=== PATIENT | male | born 1950 | race Caucasian/White ===

== ENCOUNTER → 2016-12-13 | Outpatient (REF) | payer MEDICARE, MEDICAID | LOC: M LAB REF 14:54 | PROVIDERS: ATTEND Physician Assistant Medical | DX: N39.0 Urinary tract infection, site not specified (principal) ==

== ENCOUNTER → 2017-01-25 | Outpatient (REF) | payer MEDICARE, MEDICAID ==
[2017-01-25 14:00] LABS: ALBUMIN 3.7 GM/DL (3.2-5.2); ALBUMIN/GLOBULIN RATIO 1.48 (1.00-1.93); ALKALINE PHOSPHATASE 86 U/L (45-117); ALT/SGPT 34 U/L (12-78); ANION GAP 6 MEQ/L (8-16); AST/SGOT 24 U/L (15-37); BILIRUBIN,TOTAL 0.3 MG/DL (0.2-1.0); BLOOD UREA NITROGEN 12 MG/DL (7-18); CARBON DIOXIDE LEVEL 24 MEQ/L (21-32); CHLORIDE LEVEL 110 MEQ/L (98-107); CREATININE FOR GFR 0.98 MG/DL (0.70-1.30); GLOMERULAR FILTRATION RATE > 60.0 (>49); GLUCOSE, FASTING 115 MG/DL (80-110); POTASSIUM SERUM 4.2 MEQ/L (3.5-5.1); SODIUM LEVEL 140 MEQ/L (136-145); TOTAL PROTEIN 6.2 GM/DL (6.4-8.2)
[2017-01-25 14:04] LABS: MEAN CORPUSCULAR HGB CONC 32.9 g/dl (32.0-36.5); MEAN CORPUSCULAR VOLUME 91.3 fl (80.0-96.0); RED CELL DISTRIBUTION WIDTH 13.2 % (11.5-14.5); WHITE BLOOD COUNT 8.2 K/mm3 (4.0-10.0)
== END ==
LOC: M LAB REF 11:59
PROVIDERS: ATTEND Nurse Practitioner Family
DX: D64.9 Anemia, unspecified (principal); E11.9 Type 2 diabetes mellitus without complications

== ENCOUNTER → 2017-06-18 | Outpatient (REF) | payer MEDICARE, MEDICAID ==
[2017-06-18 21:12] LABS: CALCIUM OXALATE CRYSTALS LARGE
== END ==
LOC: M LAB REF 20:52
PROVIDERS: ATTEND Physician Assistant Medical
DX: R30.0 Dysuria (principal)

== ENCOUNTER → 2017-09-21 | Outpatient (REF) | payer MEDICARE, MEDICAID | LOC: M LAB REF 12:08 | PROVIDERS: ATTEND Nurse Practitioner Adult Health | DX: E11.9 Type 2 diabetes mellitus without complications (principal); E55.9 Vitamin D deficiency, unspecified ==

== ENCOUNTER → 2018-03-16 | Outpatient (REF) | payer MEDICARE, MEDICAID ==
[2018-03-16 12:25] LABS: BASO # 0.1 10^3/uL (0.0-0.2); BASO % 0.9 % (0.0-1.0); EOS # 0.2 10^3/uL (0.0-0.50); EOS % 2.2 % (0.0-3.0); HEMATOCRIT 41.9 % (42.0-52.0); HEMOGLOBIN 13.8 g/dl (13.5-17.5); IMMATURE GRANULOCYTE % 0.3 % (0-3.0); LYMPH # 1.5 10^3/uL (1.5-4.5); LYMPH % 18.6 % (24.0-44.0); MEAN CORPUSCULAR HEMOGLOBIN 29.8 pg (27.0-33.0); MEAN CORPUSCULAR HGB CONC 32.9 g/dl (32.0-36.5); MEAN CORPUSCULAR VOLUME 90.5 fl (80.0-96.0); MONO # 0.6 10^3/uL (0.0-0.8); MONO % 7.1 % (0.0-5.0); NEUTROPHILS # 5.6 10^3/uL (1.8-7.7); NEUTROPHILS % 70.9 % (36.0-66.0); PLATELET COUNT, AUTOMATED 258 10^3/uL (150-450); RED BLOOD COUNT 4.63 10^6/uL (4.30-6.10); RED CELL DISTRIBUTION WIDTH 13.5 % (11.5-14.5); WHITE BLOOD COUNT 7.9 10^3/uL (4.0-10.0)
[2018-03-16 12:50] LABS: TOTAL 25(OH) VITAMIN D 30.2 NG/ML (30.0-100.0)
[2018-03-16 13:20] LABS: ESTIMATED AVERAGE GLUCOSE 123 MG/DL (60-110); HEMOGLOBIN A1c 5.9 %
[2018-03-16 13:56] LABS: ALBUMIN 3.8 GM/DL (3.2-5.2); ALBUMIN/GLOBULIN RATIO 1.27 (1.00-1.93); ALKALINE PHOSPHATASE 89 U/L (45-117); ALT/SGPT 30 U/L (12-78); ANION GAP 8 MEQ/L (8-16); AST/SGOT 31 U/L (7-37); BILIRUBIN,TOTAL 0.4 MG/DL (0.2-1.0); BLOOD UREA NITROGEN 10 MG/DL (7-18); CALCIUM LEVEL 8.8 MG/DL (8.8-10.2); CARBON DIOXIDE LEVEL 27 MEQ/L (21-32); CHLORIDE LEVEL 105 MEQ/L (98-107); CHOLESTEROL LEVEL 119 MG/DL (<200); CHOLESTEROL RISK RATIO 3.606 (<5); CREATININE FOR GFR 0.97 MG/DL (0.70-1.30); GLOMERULAR FILTRATION RATE > 60.0 (>49); GLUCOSE, FASTING 142 MG/DL (70-100); HDL CHOLESTEROL 33 MG/DL (>40); LDL CHOLESTEROL 57.2 MG/DL (<100); NON-HDL-C 86 MG/DL; SODIUM LEVEL 140 MEQ/L (136-145); TOTAL PROTEIN 6.8 GM/DL (6.4-8.2); TRIGLYCERIDES LEVEL 144 MG/DL (<150)
== END ==
LOC: M LAB REF 11:59
DX: E78.5 Hyperlipidemia, unspecified (principal); E11.9 Type 2 diabetes mellitus without complications; I10 Essential (primary) hypertension
CPT/HCPCS: 84443

== ENCOUNTER → 2018-08-01 | Outpatient (REF) | payer MEDICARE, MEDICAID ==
[2018-08-01 13:19] LABS: BASO # 0.1 10^3/uL (0.0-0.2); BASO % 0.7 % (0.0-1.0); EOS # 0.3 10^3/uL (0.0-0.50); EOS % 3.5 % (0.0-3.0); HEMATOCRIT 42.1 % (42.0-52.0); HEMOGLOBIN 13.8 g/dl (13.5-17.5); IMMATURE GRANULOCYTE % 0.4 % (0-3.0); LYMPH # 1.5 10^3/uL (1.5-4.5); LYMPH % 21.1 % (24.0-44.0); MEAN CORPUSCULAR HEMOGLOBIN 30.5 pg (27.0-33.0); MEAN CORPUSCULAR HGB CONC 32.8 g/dl (32.0-36.5); MEAN CORPUSCULAR VOLUME 93.1 fl (80.0-96.0); MONO # 0.5 10^3/uL (0.0-0.8); MONO % 7.5 % (0.0-5.0); NEUTROPHILS # 4.8 10^3/uL (1.8-7.7); NEUTROPHILS % 66.8 % (36.0-66.0); PLATELET COUNT, AUTOMATED 193 10^3/uL (150-450); RED BLOOD COUNT 4.52 10^6/uL (4.30-6.10); RED CELL DISTRIBUTION WIDTH 13.7 % (11.5-14.5); WHITE BLOOD COUNT 7.1 10^3/uL (4.0-10.0)
[2018-08-01 14:02] LABS: ALBUMIN 3.5 GM/DL (3.2-5.2); ALBUMIN/GLOBULIN RATIO 1.13 (1.00-1.93); ALKALINE PHOSPHATASE 89 U/L (45-117); ALT/SGPT 42 U/L (12-78); ANION GAP 7 MEQ/L (8-16); AST/SGOT 20 U/L (7-37); BILIRUBIN,TOTAL 0.3 MG/DL (0.2-1.0); BLOOD UREA NITROGEN 17 MG/DL (7-18); CARBON DIOXIDE LEVEL 27 MEQ/L (21-32); CHLORIDE LEVEL 107 MEQ/L (98-107); CHOLESTEROL LEVEL 109 MG/DL (<200); CHOLESTEROL RISK RATIO 2.868 (<5); GLOMERULAR FILTRATION RATE > 60.0 (>49); GLUCOSE, FASTING 131 MG/DL (70-100); HDL CHOLESTEROL 38 MG/DL (>40); LDL CHOLESTEROL 50 MG/DL (<100); NON-HDL-C 71 MG/DL; POTASSIUM SERUM 4.5 MEQ/L (3.5-5.1); SODIUM LEVEL 141 MEQ/L (136-145); TOTAL PROTEIN 6.6 GM/DL (6.4-8.2); TRIGLYCERIDES LEVEL 106 MG/DL (<150)
[2018-08-01 14:16] LABS: TOTAL 25(OH) VITAMIN D 22.2 NG/ML (30.0-100.0)
[2018-08-01 16:56] LABS: ESTIMATED AVERAGE GLUCOSE 131 MG/DL (60-110); HEMOGLOBIN A1c 6.2 %
== END ==
LOC: M LAB REF 12:30
DX: D64.9 Anemia, unspecified (principal); E55.9 Vitamin D deficiency, unspecified; E11.9 Type 2 diabetes mellitus without complications
CPT/HCPCS: 84443

== ENCOUNTER → 2018-10-05 | Outpatient (REF) | payer MEDICARE, MEDICAID ==
[2018-10-05 14:40] LABS: APPEARANCE, URINE CLEAR (CLEAR); BACTERIA, URINE AUTO NEGATIVE (NEGATIVE); BILIRUBIN, URINE AUTO NEGATIVE (NEGATIVE); BLOOD, URINE BLOOD NEGATIVE (NEGATIVE); COLOR, URINE YELLOW (YELLOW); GLUCOSE, URINE (UA) AUTO NEGATIVE (NEGATIVE); KETONE, URINE AUTO NEGATIVE (NEGATIVE); LEUKOCYTE ESTERASE, URINE AUTO NEGATIVE (NEGATIVE); NITRITE, URINE AUTO NEGATIVE (NEGATIVE); PROTEIN, URINE AUTO NEGATIVE (NEGATIVE); RBC, URINE AUTO 0 /HPF (0-3); SQUAMOUS EPITHELIAL CELL UR AU 0 /HPF (0-6); UROBILINOGEN, URINE AUTO 0.2 mg/dL (0.0-2.0); WBC, URINE AUTO 1 /HPF (0-3)
== END ==
LOC: M LAB REF 14:01
DX: N39.0 Urinary tract infection, site not specified (principal)
CPT/HCPCS: 81001

== ENCOUNTER → 2018-11-14 | Outpatient (REF) | payer MEDICARE, MEDICAID ==
[~2018-11-14] MED LIST: ASPI1TAB PO; ATOR1TAB21 PO; ESOM1CAP5 PO; FLOM0.4C39 PO; GEOD60CA PO; IBUP-1022 PO; METF500T13 PO; MIRT15TA3 PO; NIAC500T64 PO; ROBA500T PO; TAB-TAB; ZIPR80CA12 PO; ZOLO100T PO; [UNRECOGNIZED DRUG - CODE] PO
[2018-11-14 17:57] LABS: BASO # 0.1 10^3/uL (0.0-0.2); BASO % 0.5 % (0.0-1.0); EOS # 0.3 10^3/uL (0.0-0.50); EOS % 2.7 % (0.0-3.0); HEMATOCRIT 45.1 % (42.0-52.0); HEMOGLOBIN 14.4 g/dl (13.5-17.5); LYMPH % 19.6 % (24.0-44.0); MEAN CORPUSCULAR HEMOGLOBIN 29.9 pg (27.0-33.0); MEAN CORPUSCULAR HGB CONC 31.9 g/dl (32.0-36.5); MEAN CORPUSCULAR VOLUME 93.6 fl (80.0-96.0); MONO # 0.5 10^3/uL (0.0-0.8); MONO % 5.1 % (0.0-5.0); NEUTROPHILS # 7.4 10^3/uL (1.8-7.7); NEUTROPHILS % 71.7 % (36.0-66.0); PLATELET COUNT, AUTOMATED 215 10^3/uL (150-450); RED BLOOD COUNT 4.82 10^6/uL (4.30-6.10); WHITE BLOOD COUNT 10.3 10^3/uL (4.0-10.0)
[2018-11-14 18:12] LABS: ALBUMIN 3.9 GM/DL (3.2-5.2); ALT/SGPT 31 U/L (12-78); BILIRUBIN,TOTAL 0.3 MG/DL (0.2-1.0); BLOOD UREA NITROGEN 13 MG/DL (7-18); CALCIUM LEVEL 8.5 MG/DL (8.8-10.2); CARBON DIOXIDE LEVEL 27 MEQ/L (21-32); CHLORIDE LEVEL 106 MEQ/L (98-107); CHOLESTEROL LEVEL 111 MG/DL (<200); CHOLESTEROL RISK RATIO 3.171 (<5); CREATININE FOR GFR 1.07 MG/DL (0.70-1.30); GLOMERULAR FILTRATION RATE > 60.0 (>49); GLUCOSE, FASTING 155 MG/DL (70-100); HDL CHOLESTEROL 35 MG/DL (>40); LDL CHOLESTEROL 44 MG/DL (<100); NON-HDL-C 76 MG/DL; POTASSIUM SERUM 4.2 MEQ/L (3.5-5.1); SODIUM LEVEL 141 MEQ/L (136-145); TOTAL PROTEIN 6.7 GM/DL (6.4-8.2); TRIGLYCERIDES LEVEL 161 MG/DL (<150)
[2018-11-14 18:13] LABS: TOTAL 25(OH) VITAMIN D 83.5 NG/ML (30.0-100.0)
[2018-11-14 18:38] LABS: HEMOGLOBIN A1c 6.3 %
== END ==
LOC: M LAB REF 16:42
PROVIDERS: ATTEND Nurse Practitioner Family
DX: I10 Essential (primary) hypertension (principal); E78.5 Hyperlipidemia, unspecified; E11.9 Type 2 diabetes mellitus without complications

== ENCOUNTER → 2019-07-11 | Outpatient (REF) | payer MEDICARE, MEDICAID ==
[~2019-07-11] MED LIST changes: -ASPI1TAB PO; +ASPI81TA26 PO; +VITA200044 PO; -[UNRECOGNIZED DRUG - CODE] PO
[2019-07-11 20:14] LABS: BASO # 0.1 10^3/uL (0.0-0.2); BASO % 0.6 % (0.0-1.0); EOS # 0.2 10^3/uL (0.0-0.5); EOS % 1.4 % (0.0-3.0); HEMATOCRIT 44.8 % (42.0-52.0); HEMOGLOBIN 14.2 g/dl (13.5-17.5); LYMPH # 1.2 10^3/uL (1.5-5.0); MEAN CORPUSCULAR HEMOGLOBIN 31.3 pg (27.0-33.0); MEAN CORPUSCULAR HGB CONC 31.7 g/dl (32.0-36.5); MEAN CORPUSCULAR VOLUME 98.7 fl (80.0-96.0); MONO # 0.7 10^3/uL (0.0-0.8); MONO % 6.3 % (0.0-5.0); NEUTROPHILS # 9.4 10^3/uL (1.5-8.5); NEUTROPHILS % 81.3 % (36.0-66.0); PLATELET COUNT, AUTOMATED 225 10^3/uL (150-450); RED BLOOD COUNT 4.54 10^6/uL (4.30-6.10); WHITE BLOOD COUNT 11.6 10^3/uL (4.0-10.0)
[2019-07-11 20:38] LABS: ALBUMIN 3.9 GM/DL (3.2-5.2); ALT/SGPT 23 U/L (12-78); BILIRUBIN,TOTAL 0.2 MG/DL (0.2-1.0); BLOOD UREA NITROGEN 24 MG/DL (7-18); CALCIUM LEVEL 9.3 MG/DL (8.8-10.2); CARBON DIOXIDE LEVEL 25 MEQ/L (21-32); CHLORIDE LEVEL 107 MEQ/L (98-107); CHOLESTEROL LEVEL 163 MG/DL (<200); CHOLESTEROL RISK RATIO 3.704 (<5); CREATININE FOR GFR 0.94 MG/DL (0.70-1.30); FREE T4 0.87 NG/DL (0.76-1.46); GLOMERULAR FILTRATION RATE > 60.0 (>42); GLUCOSE, FASTING 100 MG/DL (70-100); HDL CHOLESTEROL 44 MG/DL (>40); LDL CHOLESTEROL 97 MG/DL (<100); NON-HDL-C 119 MG/DL; POTASSIUM SERUM 4.7 MEQ/L (3.5-5.1); SODIUM LEVEL 139 MEQ/L (136-145); TOTAL PROTEIN 6.6 GM/DL (6.4-8.2); TRIGLYCERIDES LEVEL 110 MG/DL (<150)
[2019-07-11 20:40] LABS: TOTAL 25(OH) VITAMIN D 24.6 NG/ML (30.0-100.0)
[2019-07-11 21:14] LABS: HEMOGLOBIN A1c 6.2 %
== END ==
LOC: M LAB REF 16:46
PROVIDERS: ATTEND Nurse Practitioner Family
DX: I10 Essential (primary) hypertension (principal); E78.5 Hyperlipidemia, unspecified; E11.9 Type 2 diabetes mellitus without complications; E55.9 Vitamin D deficiency, unspecified; Z13.9 Encounter for screening, unspecified; Z73.3 Stress, not elsewhere classified

== ENCOUNTER → 2019-07-11 | Outpatient (REF) | payer MEDICARE, MEDICAID ==
[2019-07-11 11:04] LABS: APPEARANCE, URINE CLEAR (CLEAR); BACTERIA, URINE AUTO NEGATIVE (NEGATIVE); BILIRUBIN, URINE AUTO NEGATIVE (NEGATIVE); BLOOD, URINE BLOOD NEGATIVE (NEGATIVE); COLOR, URINE STRAW (YELLOW); GLUCOSE, URINE (UA) AUTO NEGATIVE (NEGATIVE); KETONE, URINE AUTO NEGATIVE (NEGATIVE); LEUKOCYTE ESTERASE, URINE AUTO TRACE (NEGATIVE); MUCUS, URINE SMALL (NEGATIVE); NITRITE, URINE AUTO NEGATIVE (NEGATIVE); PROTEIN, URINE AUTO NEGATIVE (NEGATIVE); RBC, URINE AUTO 0 /HPF (0-3); SPECIFIC GRAVITY URINE AUTO 1.008 (1.002-1.035); SQUAMOUS EPITHELIAL CELL UR AU 0 /HPF (0-6); UROBILINOGEN, URINE AUTO 0.2 mg/dL (0.0-2.0); WBC, URINE AUTO 6 /HPF (0-3)
== END ==
LOC: M LAB REF 10:52
PROVIDERS: ATTEND Nurse Practitioner Family
DX: I10 Essential (primary) hypertension (principal); E11.9 Type 2 diabetes mellitus without complications

== ENCOUNTER → 2019-09-10 | Outpatient (REF) | payer OTHER, MEDICAID ==
[2019-09-10 20:09] LABS: APPEARANCE, URINE CLEAR (CLEAR); BACTERIA, URINE AUTO NEGATIVE (NEGATIVE); BILIRUBIN, URINE AUTO NEGATIVE (NEGATIVE); BLOOD, URINE BLOOD NEGATIVE (NEGATIVE); COLOR, URINE STRAW (YELLOW); GLUCOSE, URINE (UA) AUTO NEGATIVE (NEGATIVE); KETONE, URINE AUTO NEGATIVE (NEGATIVE); LEUKOCYTE ESTERASE, URINE AUTO NEGATIVE (NEGATIVE); NITRITE, URINE AUTO NEGATIVE (NEGATIVE); PROTEIN, URINE AUTO NEGATIVE (NEGATIVE); RBC, URINE AUTO 0 /HPF (0-3); SPECIFIC GRAVITY URINE AUTO 1.004 (1.002-1.035); SQUAMOUS EPITHELIAL CELL UR AU 0 /HPF (0-6); UROBILINOGEN, URINE AUTO 0.2 mg/dL (0.0-2.0); WBC, URINE AUTO 1 /HPF (0-3)
== END ==
LOC: M LAB REF 19:31
PROVIDERS: ATTEND Family Medicine
DX: R39.15 Urgency of urination (principal)

== ENCOUNTER → 2019-11-09 | Outpatient (REF) | payer MEDICARE, MEDICAID ==
[2019-11-09 13:01] LABS: BASO # 0.1 10^3/uL (0.0-0.2); BASO % 1.6 % (0.0-1.0); EOS # 0.2 10^3/uL (0.0-0.5); EOS % 3.4 % (0.0-3.0); HEMATOCRIT 47.1 % (42.0-52.0); HEMOGLOBIN 15.3 g/dl (13.5-17.5); LYMPH # 1.5 10^3/uL (1.5-5.0); LYMPH % 24.7 % (24.0-44.0); MEAN CORPUSCULAR HEMOGLOBIN 30.7 pg (27.0-33.0); MEAN CORPUSCULAR HGB CONC 32.5 g/dl (32.0-36.5); MEAN CORPUSCULAR VOLUME 94.4 fl (80.0-96.0); MONO # 0.5 10^3/uL (0.0-0.8); MONO % 7.5 % (0.0-5.0); NEUTROPHILS # 3.9 10^3/uL (1.5-8.5); NEUTROPHILS % 62.6 % (36.0-66.0); PLATELET COUNT, AUTOMATED 207 10^3/uL (150-450); RED BLOOD COUNT 4.99 10^6/uL (4.30-6.10); WHITE BLOOD COUNT 6.2 10^3/uL (4.0-10.0)
[2019-11-09 13:24] LABS: HEMOGLOBIN A1c 6.1 %
[2019-11-09 13:31] LABS: ALBUMIN 4.1 GM/DL (3.2-5.2); ALT/SGPT 28 U/L (12-78); BILIRUBIN,TOTAL 0.3 MG/DL (0.2-1.0); BLOOD UREA NITROGEN 20 MG/DL (7-18); CARBON DIOXIDE LEVEL 28 MEQ/L (21-32); CHLORIDE LEVEL 105 MEQ/L (98-107); CHOLESTEROL LEVEL 140 MG/DL (<200); CHOLESTEROL RISK RATIO 3.589 (<5); CREATININE FOR GFR 1.04 MG/DL (0.70-1.30); GLOMERULAR FILTRATION RATE > 60.0 (>42); GLUCOSE, FASTING 137 MG/DL (70-100); HDL CHOLESTEROL 39 MG/DL (>40); LDL CHOLESTEROL 66 MG/DL (<100); NON-HDL-C 101 MG/DL; POTASSIUM SERUM 4.7 MEQ/L (3.5-5.1); SODIUM LEVEL 139 MEQ/L (136-145); TOTAL PROTEIN 6.8 GM/DL (6.4-8.2); TRIGLYCERIDES LEVEL 175 MG/DL (<150)
== END ==
LOC: M LAB REF 12:29
PROVIDERS: ATTEND Nurse Practitioner Family
DX: I10 Essential (primary) hypertension (principal); E78.5 Hyperlipidemia, unspecified; E11.9 Type 2 diabetes mellitus without complications

== ENCOUNTER → 2020-03-06 | Outpatient (REF) | payer MEDICARE, MEDICAID ==
[2020-03-06 14:22] LABS: CHOLESTEROL RISK RATIO 4.354 (<5)
[2020-03-06 14:26] LABS: HEMOGLOBIN A1c 6.3 %
== END ==
LOC: M LAB REF 12:15
PROVIDERS: ATTEND Nurse Practitioner Family
DX: E78.5 Hyperlipidemia, unspecified (principal); E11.9 Type 2 diabetes mellitus without complications

== ENCOUNTER → 2020-06-05 | Outpatient (REF) | payer MEDICARE, MEDICAID ==
[~2020-06-05] MED LIST changes: -TAB-TAB; +TAB-TAB2
[2020-07-09 13:34] LABS: BASO # 0.1 10^3/uL (0.0-0.2); BASO % 0.7 % (0.0-1.0); EOS # 0.2 10^3/uL (0.0-0.5); EOS % 2.5 % (0.0-3.0); HEMATOCRIT 41.1 % (42.0-52.0); HEMOGLOBIN 13.6 g/dl (13.5-17.5); LYMPH # 1.2 10^3/uL (1.5-5.0); LYMPH % 13.6 % (24.0-44.0); MEAN CORPUSCULAR HGB CONC 33.1 g/dl (32.0-36.5); MEAN CORPUSCULAR VOLUME 93.6 fl (80.0-96.0); MONO # 0.9 10^3/uL (0.0-0.8); MONO % 10.1 % (0.0-5.0); NEUTROPHILS # 6.2 10^3/uL (1.5-8.5); NEUTROPHILS % 72.7 % (36.0-66.0); PLATELET COUNT, AUTOMATED 182 10^3/uL (150-450); RED BLOOD COUNT 4.39 10^6/uL (4.30-6.10); WHITE BLOOD COUNT 8.5 10^3/uL (4.0-10.0)
[2020-07-23 12:53] LABS: ALBUMIN 3.8 GM/DL (3.2-5.2); ALT/SGPT 25 U/L (12-78); BILIRUBIN,TOTAL 0.2 MG/DL (0.2-1.0); BLOOD UREA NITROGEN 21 MG/DL (7-18); CALCIUM LEVEL 9.1 MG/DL (8.8-10.2); CARBON DIOXIDE LEVEL 29 MEQ/L (21-32); CHLORIDE LEVEL 107 MEQ/L (98-107); CHOLESTEROL LEVEL 164 MG/DL (<200); CHOLESTEROL RISK RATIO 5.466 (<5); CREATININE FOR GFR 0.95 MG/DL (0.70-1.30); FREE T4 1.05 NG/DL (0.76-1.46); GLOMERULAR FILTRATION RATE > 60.0 (>42); GLUCOSE, FASTING 137 MG/DL (70-100); HDL CHOLESTEROL 30 MG/DL (>40); HEMOGLOBIN A1c 6.1 %; LDL CHOLESTEROL 96 MG/DL (<100); NON-HDL-C 134 MG/DL; POTASSIUM SERUM 4.4 MEQ/L (3.5-5.1); SODIUM LEVEL 139 MEQ/L (136-145); TOTAL PROTEIN 6.7 GM/DL (6.4-8.2); TRIGLYCERIDES LEVEL 191 MG/DL (<150)
== END ==
LOC: M LAB REF 12:44
PROVIDERS: ATTEND Nurse Practitioner Family
DX: Z13.9 Encounter for screening, unspecified (principal); Z72.0 Tobacco use; E55.9 Vitamin D deficiency, unspecified; E78.5 Hyperlipidemia, unspecified; I10 Essential (primary) hypertension; K21.9 Gastro-esophageal reflux disease without esophagitis; E11.9 Type 2 diabetes mellitus without complications; F32.9 Major depressive disorder, single episode, unspecified

== ENCOUNTER 2021-10-04 19:07 | Emergency (ER) | payer MEDICARE ==
[~2021-10-04] VITALS: Ht 167.6 cm; Wt 68.2 kg
[2021-10-04 19:09] VITALS: BP 181/81
--- OUTSIDE RECORDS SUMMARY | 2021-10-04 19:19 | CCD ---
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 Name Role Phone Ting Williamson Unavailable Unavailable Allergies Code Code System Name Reaction Severity Status Onset NKDA Medications Name Status Start Date Stop Date albuterol sulfate HFA 90 mcg/actuation a erosol inhaler INHALE TWO PUFFS BY MOUTH EVERY 4 HOURS NEEDED Active Not available aspirin 81 mg tablet,delayed release TAKE ONE TABLET BY MOUTH EVERY DAY Active Not available atorvastatin 20 mg tablet TAKE ONE TABLET BY MOUTH EVERY DAY Active Not available azithromycin 250 mg tablet TAKE TWO TABLETS BY MOUTH AT ONCE ON THE FIRST DAY THEN TAKE ONE DAILY THEREAFTER Completed 10/06/2020 Bactrim DS 800 mg-160 mg tablet Take 1 tablet every 12 hours by oral route. Active Not available cholecalciferol (vitamin D3) 1,250 mcg ( 50,000 unit) capsule TAKE ONE CAPSULE BY MOUTH EVERY 7 DAYS Active Not available cholecalciferol (vitamin D3) 125 mcg (5, 000 unit) tablet TAKE ONE TABLET BY MOUTH EVERY DAY Active Not available ciprofloxacin 250 mg tablet TAKE ONE TABLET BY MOUTH TWICE A DAY DIRECTED FOR 10 DAYS Completed 07/30/2021 esomeprazole magnesium 40 mg capsule,del ayed release TAKE ONE CAPSULE BY MOUTH EVERY DAY Active Not available fluticasone propionate 50 mcg/actuation nasal spray,suspension SPRAY ONE SPRAY IN EACH NOSTRIL TWICE A DAY Active Not available metformin 500 mg tablet TAKE ONE TABLET BY MOUTH EVERY DAY Completed 09/23 mirtazapine 15 mg tablet TAKE ONE TABLET BY MOUTH AT BEDTIME Completed 04/2021 mirtazapine 30 mg tablet Active Not dave ilable prednisone 20 mg tablet TAKE ONE TABLET BY MOUTH EVERY DAY FOR 5 DAYS Completed 07/30/2021 Prevail Underwear USE THREE TIMES A DAY FOR INCONTINENCE Active 07/30/2021 Not available sertraline 100 mg tablet TAKE TWO TABLETS BY MOUTH EVERY MORNING Active Not available Tab-A-Len 400 mcg tablet TAKE ONE TABLET BY MOUTH EVERY DAY Active Not available tamsulosin 0.4 mg capsule TAKE ONE CAPSULE BY MOUTH EVERY DAY Active Not available ziprasidone 60 mg capsule TAKE ONE CAPSULE BY MOUTH TWO TIMES A DAY DIRECTED Completed 07/30/2021 ziprasidone 80 mg capsule Active Not av ailable Problems Name Status Onset Date Source SNOMED CT Concept Active 03/08/2013 History Lower Urinary Tract Finding Active 02/20/2014 Hist ory Clinical Finding Active 08/21/2014 History Vitamin D Deficiency Active 01/05/2016 History Tobacco Use and Exposure - Finding Active 09/23/2016 History Finding of General Energy Active 09/23/[address] Concept Active 09/23/2016 History Anemia Active 09/30/2016 History Finding of Desire for Urination Active 09/30/2016 History Body Mass Index 25-29 - Overweight Active 09/01/2017 History Overweight Active 09/01/2017 History Clinical Finding Active 06/29/2018 History History and Physical Examination, Administrative Active 02/08/2019 History Mental State, Behavior And/or Psychosocial Function Finding Acti ve 02/08/2019 History Bipolar Disorder Active 07/11/2019 History Generalized Anxiety Disorder Active 07/11/2019 His tory Dyspnea Active 08/15/2019 History Under Immunized Active 08/15/2019 History Evaluation Finding Active 09/10/2019 History Finding of Menstrual Bleeding Active 09/10/2019 Hi story Respiratory Crackles Active 11/15/2019 History Nicotine Dependence Active 03/12/2020 History Seasonal Allergic Rhinitis Active 03/12/2020 Histo ry Cough Active 03/12/2020 History Pharyngeal Finding Active 03/12/2020 History Impacted Cerumen of Bilateral Ears Active 03/12/2020 History Procedure by Method Active 03/12/2020 History Severe Recurrent Major Depression without Psychotic Features Act asia 08/14/2020 Type II Diabetes Mellitus Uncontrolled Active 0 Hyperlipidemia Active History Depressive Disorder Active History Hypertensive Disorder Active History Clinical Finding Active History Finding of Esophagus Active History Procedures Date Name Performed by 10/24/1981 Mouth Surgery Procedure Information not available Results Lab Results Date Name Specimen Result Interpretation Description Value Range Status Address 07/30/2021 Urinalysis, Dipstick, Auto Normal Bilirubin ne g Final [facility]: [address] , [place] Normal Blood neg Final Main [facility] Medical: [address] , [place] Normal Glucose neg Final [facility]: [address], [place] Normal Ketone +- Final [facility]: [address] [facility] Normal Leukocytes neg [facility]: [address] [facility] Normal Nitrite neg Final [facility]: [address] [facility] Normal Ph 5.5 Final [facility] Medical: [address] [facility] Normal Protein +- Final [facility]: [address] [facility] Normal Specific [place] 1.030 Final [facility]: [address] [facility] Normal Urobilinogen 0.2 Final [facility] [place] [facility]: [address] [facility] 07/30/2021 SARS CoV 2 RdRp Gene, QL Probe, Respiratory Spec imen Nasopharyngeal Normal Sars-cov-2 negative negative Final [facility]: [address] [facility] 10/06/2020 Urinalysis, Dipstick Normal Appearance, Urine hazy clear [facility]: [address] [facility] Normal Color, Urine yellow yellow [facility]: [address] [facility] Normal pH,urine 5.0 units 5.0-9.0 units Fin [facility]: [address] [facility] Normal Specific [place] Urine Auto 1.021 1 .002-1.035 [facility]: [address] [facility] Normal Protein, Urine Auto negative mg/dL n egative mg/dL [facility]: [address] [facility] Normal Glucose, Urine (UA) Auto negative mg /dL negative mg/dL [facility]: [address] [facility] High Ketone, Urine Auto trace mg/dL negat asia mg/dL [facility]: [address] [facility] High Urobilinogen, Urine Auto 2.0 mg/dL 0 .0-2.0 mg/dL [facility]: [address] [facility] Normal Bilirubin, Urine Auto negative negat asia [facility]: [address] [facility] Normal Nitrite, Urine Auto negative negativ e [facility]: [address] [facility] High Leukocyte Esterase, Urine Auto trace negative [facility]: [address] [facility] Normal Blood, Urine Blood negative negative [facility]: [address] [facility] Normal WBC, Urine Auto 3 /hpf 0-3 /hpf [facility]: [address] [facility] Normal RBC, Urine Auto 2 /hpf 0-3 /hpf [facility]: [address] [facility] Normal Bacteria, Urine Auto negative negati ve [facility]: [address] [facility] Normal Squamous Epithelial Cell Ur AU 0 /hp f 0-6 /hpf [facility]: [address] [facility] Normal Mucus, Urine small negative [facility]: [address] [facility] Normal Hyaline Cast, Urine Auto 1 /lpf 0-1 /lpf [facility]: [address] [facility] Normal Calcium Oxalate Crystals small none [facility]: [address] [facility] 10/06/2020 CBC W/ Auto Diff Normal White Blood Count 8.2 10 4.0-10.0 10 [facility]: [address] [facility] Normal Red Blood Count 4.83 10 4.30-6.10 10 [facility]: [address] [facility] Normal Hemoglobin 14.7 g/dL 13.5-17.5 g/dL [facility]: [address] [facility] Normal Hematocrit 45.5 % 42.0-52.0 % [facility]: [address] [facility] Normal Mean Corpuscular Volume 94.2 fL 80.0 -96.0 fL [facility]: [address] [facility] Normal Mean Corpuscular Hemoglobin 30.4 pg 27.0-33.0 pg [facility]: [address] [facility] Normal Mean Corpuscular HGB Conc 32.3 g/dL 32.0-36.5 g/dL [facility]: [address] [facility] Normal Red Cell Distribution Width 12.6 % 1 1.5-14.5 % [facility]: [address] [facility] Normal Platelet Count, Automated 225 10 150 -450 10 [facility]: [address] [facility] High Neutrophils % 72.5 % 36.0-66.0 % [facility]: [address] [facility] Low Lymph % 18.2 % 24.0-44.0 % [facility]: [address] [facility] High [place] % 6.0 % 0.0-5.0 % [facility]: [address] [facility] Normal Eos % 2.2 % 0.0-3.0 % [facility]: [address] [facility] Normal Baso % 0.7 % 0.0-1.0 % [facility]: [address] [facility] Normal Immature Granulocyte % 0.4 % 0-3.0 % [facility]: [address] [facility] Normal Nucleated Red Blood Cell % 0.0 % 0- 0 % [facility]: [address] [facility] Normal Neutrophils # 5.9 10 1.5-8.5 10 [facility]: [address] [facility] Normal Lymph # 1.5 10 1.5-5.0 10 [facility]: [address] [facility] Normal [place] # 0.5 10 0.0-0.8 10 [facility]: [address] [facility] Normal Eos # 0.2 10 0.0-0.5 10 [facility]: [address] [facility] Normal Baso # 0.1 10 0.0-0.2 10 [facility]: [address] [facility] 10/06/2020 CMP, Serum or Plasma High Glucose, Fastin g 120 mg/dL 70-100 mg/dL [facility]: [address] [facility] High Blood Urea Nitrogen 27 mg/dL 7-18 mg /dL [facility]: [address] [facility] Normal Creatinine for GFR 1.20 mg/dL 0.70-1 .30 mg/dL [facility]: [address] [facility] Normal Glomerular Filtration Rate > 60.0 >4 2 [facility]: [address] [facility] Normal Sodium Level 137 mEq/L 136-145 mEq/L [facility]: [address] [facility] Normal Potassium Serum 4.8 mEq/L 3.5-5.1 mE q/L [facility]: [address] [facility] Normal Chloride Level 104 mEq/L 98-107 mEq/ L [facility]: [address] [facility] Normal Carbon Dioxide Level 28 mEq/L 21-32 mEq/L [facility]: [address] [facility] Low Anion Gap 5 mEq/L 8-16 mEq/L [facility]: [address] [facility] Normal Calcium Level 9.1 mg/dL 8.8-10.2 mg/ dL [facility]: [address] [facility] Normal AST/SGOT 13 U/L 7-37 U/L [facility]: [address] [facility] Normal ALT/SGPT 21 U/L 12-78 U/L [facility]: [address] [facility] Normal Alkaline Phosphatase 75 U/L 45-117 U /L [facility]: [address] [facility] Normal Bilirubin,total 0.5 mg/dL 0.2-1.0 mg /dL [facility]: [address] [facility] Normal Total Protein 6.9 gm/dL 6.4-8.2 gm/d L [facility]: [address] [facility] Normal Albumin 4.1 gm/dL 3.2-5.2 gm/dL [facility]: [address] [facility] Normal Albumin/globulin Ratio 1.5 [facility]: [address] [facility] 10/06/2020 Lipid Panel, Blood Normal Triglycerides Lev el 82 mg/dL <150 mg/dL [facility]: [address] [facility] Normal Cholesterol Level 135 mg/dL <200 mg/ dL Final [facility]: [address] [facility] Low HDL Cholesterol 38 mg/dL >40 mg/dL [facility]: [address] [facility] Normal LDL Cholesterol 81 mg/dL <100 mg/dL Final [facility]: [address] [facility] Normal Non-hdl-c 97 mg/dL Final [facility]: [address] [facility] Normal Cholesterol Risk Ratio 3.552 <5 Final [facility]: [address] [facility] 10/06/2020 TSH + Free T4, Serum High Thyroid Stimulating Hormone 4.440 uIU/mL 0.358-3.740 uIU/mL [facility]: [address] [facility] Normal Free T4 1.12 NG/dL 0.76-1.46 NG/dL [facility]: [address] [facility] 10/06/2020 Vitamin D, 25-Hydroxy, Total, Serum Normal Total 25(Oh) Vitamin D 60.9 NG/mL 30.0-100.0 NG/mL [facility]: [address] [facility] 10/06/2020 HbA1C (Hemoglobin a1C), Blood Normal Hemogl obin a1C 5.8 % [facility]: [address] [facility] High Estimated Average Glucose 120 mg/dL 60-110 mg/dL [facility]: [address] [facility] 10/06/2020 Culture, Urine URINE,CLEAN CATCH No observation recorded. [facility]: [address] [facility] 10/06/2020 PSA, Total + Free, Serum or Plasma Normal P SA Total 2.6 NG/mL 0.0-4.0 NG/mL [facility]: [address] [facility] Normal PSA Comment . Final [facility]: [address] [facility] 10/06/2020 Urinalysis, Dipstick, Auto Urine ABNORMAL Bilirubin pos Final [facility]: [address] [place] [address] Urine Normal Blood neg Final [facility] [place] [facility]: [address], [place] Urine Normal Glucose neg Final Main [facility] Medical: [address], [place] Urine Normal Ketone pos Final Main [facility] Medical: [address], [place] Urine Normal Leukocytes pos Final [facility]: [address], [place] Urine Normal Nitrite neg Final [facility] Medical: [address], [place] Urine Normal Ph 5.5 Final [facility] Medical: [address], [place] Urine Normal Protein pos Final [facility]: [address], [place] Urine Normal Specific [place] 1.030 Final [facility]: [address], [place] Urine Normal Urobilinogen 0.2 mg/dL [facility] [address] [facility] Past Encounters 07/30/2021 Patient New to Provider; Immunization Advised; Nicotine Dependence; Cough; Acute Urinary Tract Infection EMILIANO ClemonsP: [address] [place] [address], Ph. 12/17/2020 Administration of SARS-CoV-2 Antigen Vaccine Jerald Mccray MD: [address] [place] [address], Ph. 11/17/2020 Schizoaffective Disorder Christianne Deshpande MD: [address] [place] [address], Ph. 10/06/2020 Dysuria; Acute Urinary Tract Infection; Type II Diabetes Mellitus Uncontrolled; Nicotine Dependence; Needs Influenza Immunization; Generalized Anxiety Disorder MILAGRO Patel-BC: [address] [place] [address], Ph. Social History Tobacco Smoking Status Heavy Tobacco Smoker (1 pack per a da y) Vaccine List Vaccine Type COVID-19, mRNA, LNP-S, PF, 100 mcg/0.5 m L dose 10.5 mL influenza, injectable, quadrivalent, pre servative free 08/15/20190.5 mL 10/06/20200.5 mL influenza, seasonal, injectable 07/11/2014 07/23/2015 pneumococcal conjugate PCV 13 10/06/20150.5 mL pneumococcal polysaccharide PPV23 08/21/20140.5 mL Tdap 01/05/20160.5 mL Plan of Care Reminders Provider Appointments None recorded. Lab None recorded. Referral None recorded. Procedures None recorded. Surgeries None recorded. Imaging None recorded. Vitals 07/30/2021 11:00AM ESTABLISHED [id number] Height Weight BMI Blood Pressure 65 in 143 lbs 23.8 kg/m2 122/82 mm[Hg] 11/17/2020 01:00PM TELEPSYCH 30 Height Weight BMI 65 in 143 lbs 23.8 kg/m2 10/06/2020 09:20AM ESTABLISHED [id number] Height Weight BMI Blood Pressure 65 in 142 lbs 9.6 oz 23.7 kg/m2 115/74 mm[Hg ] 03/24/2020 Height Weight BMI 65 in 147 lbs 24.55 kg/m2 03/12/2020 Height Weight BMI Blood Pressure 65 in 148 lbs 2.08 oz 24.74 kg/m2 120/74 mm[H g] 01/24/2020 Height Weight BMI 65 in 172 lbs 28.73 kg/m2 11/15/2019 Height Weight BMI Blood Pressure 65 in 173 lbs 4 oz 28.93 kg/m2 129/75 mm[Hg] 11/05/2019 Height Weight BMI 65 in 143 lbs 23.88 kg/m2 09/10/2019 Height Weight BMI Blood Pressure (1) 65 in (2) 65 in (1) 135 lbs 4.96 oz (2) 135 lbs (1) 22.60 kg/m2 (2) 22.55 kg/m2 154/89 mm[Hg] 08/15/2019 Height Weight BMI Blood Pressure 65 in 141 lbs 2.08 oz 23.57 kg/m2 (1) 147/78 mm[Hg] (2) 150/78 mm[Hg] 07/11/2019 Height Weight BMI Blood Pressure 65 in 139 lbs 4 oz 23.26 kg/m2 131/76 mm[Hg] 02/08/2019 Height Weight BMI Blood Pressure 65 in 142 lbs 23.72 kg/m2 114/72 mm[Hg] 11/14/2018 Height Weight BMI Blood Pressure 65 in 144 lbs 4 oz 24.09 kg/m2 122/68 mm[Hg]
--- OUTSIDE RECORDS SUMMARY | 2021-10-04 19:19 | CCD ---
Author Organization Unknown Address [address] [place] [address] Phone [phone] Care Team Providers Care Photographic Editor Name Role Phone Nya Razo Unavailable Unavailable Allergies Code Code System Name Reaction Severity Status Onset NKDA Notes: seasonal Medications Name Status Start Date Stop Date albuterol sulfate HFA 90 mcg/actuation aerosol inhaler Active Not available aspirin 81 mg tablet,delayed release TAKE ONE TABLET BY MOUTH EVERY DAY Active Not available atorvastatin 20 mg tablet Active Not av ailable azithromycin 250 mg tablet TAKE TWO TABLETS BY MOUTH AT ONCE ON THE FIRST DAY THEN TAKE ONE DAILY THEREAFTER Completed 10/06/2020 cholecalciferol (vitamin D3) 1,250 mcg ( 50,000 unit) capsule TAKE ONE CAPSULE BY MOUTH EVERY 7 DAYS Active Not available cholecalciferol (vitamin D3) 125 mcg (5, 000 unit) tablet TAKE ONE TABLET BY MOUTH EVERY DAY Active Not available ciprofloxacin 250 mg tablet TAKE ONE TABLET BY MOUTH TWICE A DAY DIRECTED FOR 10 DAYS Completed 07/30/2021 esomeprazole magnesium 40 mg capsule,delayed release Active Not available fluticasone propionate 50 mcg/actuation [...] BY MOUTH EVERY MORNING Active Not available sulfamethoxazole 800 mg-trimethoprim 160 mg tablet TAKE ONE TABLET BY MOUTH EVERY 12 HOURS Completed 08/31/2021 Tab-A-Len 400 mcg tablet TAKE ONE TABLET BY MOUTH EVERY DAY Active Not available tamsulosin 0.4 mg capsule Active Not av ailable ziprasidone 60 mg capsule TAKE ONE CAPSULE BY MOUTH TWO TIMES A DAY DIRECTED Completed 07/30/2021 ziprasidone 80 mg capsule Active Not av ailable Problems Name Status Onset Date Source SNOMED CT Concept Active 03/08/2013 History Lower Urinary Tract Finding Active 02/20/2014 Hist ory Clinical Finding Unknown 08/21/2014 History Vitamin D Deficiency Active 01/05/2016 History Tobacco Use and Exposure - Finding Active 09/23/2016 History Finding of General Energy Active 09/23/[address] Concept Active 09/23/2016 History Anemia Active 09/30/2016 History Finding of Desire for Urination Active 09/30/2016 History Body Mass Index 25-29 - Overweight Active 09/01/2017 History Overweight Active 09/01/2017 History Clinical Finding Unknown 06/29/2018 History History and Physical Examination, Administrative Active 02/08/2019 History Mental State, Behavior And/or Psychosocial Function Finding Acti ve 02/08/2019 History Bipolar Disorder Active 07/11/2019 History Generalized Anxiety Disorder Active 07/11/2019 His tory Dyspnea Active 08/15/2019 History Under Immunized Active 08/15/2019 History Evaluation Finding Active 09/10/2019 History Finding of Menstrual Bleeding Unknown 09/10/2019 Hi story Respiratory Crackles Active 11/15/2019 History Nicotine Dependence Active 03/12/2020 History Seasonal Allergic Rhinitis Active 03/12/2020 Histo ry Cough Active 03/12/2020 History Pharyngeal Finding Active 03/12/2020 History Impacted Cerumen of Bilateral Ears Active 03/12/2020 History Procedure by Method Active 03/12/2020 History Severe Recurrent Major Depression without Psychotic Features Act asia 08/14/2020 Type II Diabetes Mellitus Uncontrolled Active 0 Urinary Tract Infectious Disease Active 07/30/2021 Hyperlipidemia Active History Depressive Disorder Active History Hypertensive Disorder Active History Clinical Finding Active History Finding of Esophagus Unknown History Procedures Date Name Performed by 10/24/1981 Mouth Surgery Procedure Information not available Results Lab Results Date Name Specimen Result Interpretation Description Value Range Status Address 07/30/2021 Lipid Panel, Serum Blood venous Normal Мария sterol, Total 155 mg/dL <200 mg/dL Final [facility] [place]: [address] [facility] [facility] Blood venous Low HDL Cholesterol 31 mg/dL > or = 40 mg/dL Final [facility] [place]: [address] [place] Blood venous Normal Triglycerides 120 mg/dL <150 mg/dL Final [facility] [place]: [address] [facility] Blood venous High LDL-cholesterol 102 mg/dL (ca lc) Final [facility]: [address] [facility] Blood venous High Chol/hdlc Ratio 5.0 (calc) <5 .0 (calc) Final [facility]: [address] [facility] Blood venous Normal Non HDL Cholesterol 124 mg/dL (calc) <130 mg/dL (calc) Final [facility] [address] [facility]21 CMP, Serum or Plasma Blood venous High Glucose 103 mg/dL 65-99 mg/dL Final [facility]: [address] [facility] Blood venous Normal Urea Nitrogen (BUN) 19 mg/dL 7-25 mg/dL Final [facility]: [address] [facility] Blood venous Normal Creatinine 0.95 mg/dL 0.70-1. 18 mg/dL [facility]: [address] [facility] Blood venous Normal eGFR Non-afr. Maltese 8 0 mL/min/1.73m2 > or = 60 mL/min/1.73m2 Final [facility]: [address] [facility] Blood venous Normal eGFR 92 mL/min/1.73m2 > or = 60 mL/min/1.73m2 Final [facility]: [address] [facility] Blood venous BUN/creatinine Ratio not applicable (calc) 6-22 (calc) Final [facility]: [address] [facility] Blood venous Normal Sodium 140 mmol/L 135-146 mmo l/L Final [facility]: [address] [facility] Blood venous Normal Potassium 4.6 mmol/L 3.5-5.3 mmol/L Final [facility]: [address] [facility] Blood venous Normal Chloride 107 mmol/L 98-110 mm ol/L Final [facility]: [address] Blood venous Normal Carbon Dioxide 27 mmol/L 20-3 2 mmol/L [facility]: [address] [facility] Blood venous Normal Calcium 9.2 mg/dL 8.6-10.3 mg /dL Final [facility]: [address] [facility] Blood venous Normal Protein, Total 6.7 g/dL 6.1-8 .1 g/dL Final [facility]: [address] [facility] Blood venous Normal Albumin 4.3 g/dL 3.6-5.1 g/dL [facility]: [address] [facility] Blood venous Normal Globulin 2.4 g/dL (calc) 1.9- 3.7 g/dL (calc) [facility]: [address] [facility] Blood venous Normal Albumin/globulin Ratio 1 .8 (calc) 1.0-2.5 (calc) [facility]: [address] [facility] Blood venous Normal Bilirubin, Total 0.7 mg/dL 0. 2-1.2 mg/dL [facility]: [address] [facility] Blood venous Normal Alkaline Phosphatase 72 U/L 3 5-144 U/L [facility]: [address] [facility] Blood venous Normal Ast 13 U/L 10-35 U/L Final [facility]: [address] [facility] Blood venous Normal Alt 10 U/L 9-46 U/L [facility] [address] [facility] 07/30/2021 CBC W/ Auto Diff Blood venous Normal White B lood Cell Count 8.5 thousand/uL 3.8-10.8 thousand/uL [facility]: [address] [facility] [facility] Blood venous Normal Red Blood Cell Count 4.6 3 million/uL 4.20-5.80 million/uL [facility] [address] [facility] Blood venous Normal Hemoglobin 14.6 g/dL 13.2-17. 1 g/dL Final [facility]: [address] [facility] Blood venous Normal Hematocrit 41.9 % 38.5-50.0 % Final [facility]: [address] [facility] Blood venous Normal Mcv 90.5 fL 80.0-100.0 fL Fi nal [facility]: [address] [facility] Blood venous Normal Mch 31.5 pg 27.0-33.0 pg Fin al [facility]: [address] [facility] Blood venous Normal Mchc 34.8 g/dL 32.0-36.0 g/dL [facility]: [address] [facility] Blood venous Normal Rdw 12.4 % 11.0-15.0 % [facility]: [address] [facility] Blood venous Normal Platelet Count 253 thous and/uL 140-400 thousand/uL [facility]: [address] [facility] Blood venous Normal Mpv 9.8 fL 7.5-12.5 fL [facility]: [address] [facility] Blood venous Normal Absolute Neutrophils 614 6 cells/uL [phone] cells/uL [facility]: [address] [facility] Blood venous Normal Absolute Lymphocytes 147 9 cells/uL 850-3900 cells/uL [facility]: [address] Blood venous Normal Absolute Monocytes 655 c ells/uL 200-950 cells/uL [facility]: [address] [facility] Blood venous Normal Absolute Eosinophils 162 cells/uL 15-500 cells/uL [facility]: [address] [facility] Normal Absolute Basophils 60 ce lls/uL 0-200 cells/uL [facility]: [address] [facility] Blood venous Normal Neutrophils 72.3 % 38-80 % Fi [facility]: [address] [facility] Blood venous Normal Lymphocytes 17.4 % 15-49 % Fi [facility]: [address] [facility] Blood venous Normal Monocytes 7.7 % 0-13 % [facility]: [address] [facility] Blood venous Normal Eosinophils 1.9 % 0-8 % Fin [facility]: [address] [facility] Blood venous Normal Basophils 0.7 % 0-2 % [facility]: [address] [facility] 07/30/2021 TSH, Serum or Plasma Normal TSH W/reflex to FT4 1.29 mIU/L 0.40-4.50 mIU/L [facility]: [address] [facility] 07/30/2021 HbA1C (Hemoglobin a1C), Blood Blood venous High Hemoglobin a1C 5.8 % of total HGB <5.7 % of total HGB Final [facility]: [address], [place] 07/30/2021 CT RNA, Qual, PCR, Unspecified Specimen Chlamydia Trachomatis RNA Tma, Urogenital (Refl) tnp Final [facility]: [address] [place] 07/30/2021 Culture, Urine Urine Culture, Urine, Routine see note Final [facility]: [address] [place] 07/30/2021 Urinalysis, Dipstick, Auto Normal Bilirubin ne g Final [facility]: [address] [facility] Normal Blood neg Final [facility]: [address] [facility] Normal Glucose neg Final [facility]: [address] [facility] Normal Ketone +- Final [facility]: [address] [facility] Normal Leukocytes neg Final [facility]: [address] [facility] Normal Nitrite neg Final [facility]: [address] [facility] Normal Ph 5.5 Final [facility]: [address] [facility] Normal Protein +- Final [facility]: [address] [facility] Normal Specific [place] 1.030 Final [facility]: [address] [facility] Normal Urobilinogen 0.2 Final [facility]: [address] [facility] 07/30/2021 SARS CoV 2 RdRp Gene, QL Probe, Respiratory Spec imen Nasopharyngeal Normal Sars-cov-2 negative negative Final [facility]: [address] [facility] 10/06/2020 Urinalysis, Dipstick Normal Appearance, Urine hazy clear Final [facility]: [address] [facility] Normal Color, Urine yellow yellow Final [facility]: [address] [facility] Normal pH,urine 5.0 units 5.0-9.0 units Fin [facility]: [address] [facility] Normal Specific [place] Urine Auto 1.021 1 .002-1.035 [facility]: [address] [facility] Normal Protein, Urine Auto negative mg/dL n egative mg/dL [facility]: [address] [facility] Normal Glucose, Urine (UA) Auto negative mg /dL negative mg/dL [facility]: [address] [facility] High Ketone, Urine Auto trace mg/dL negat asia mg/dL [facility]: [address] [facility] High Urobilinogen, Urine Auto 2.0 mg/dL 0 .0-2.0 mg/dL [facility]: [address] [facility] Normal Bilirubin, Urine Auto negative negat asia [facility]: [address] [facility] Normal Nitrite, Urine Auto negative negativ e [facility]: [address] [facility] High Leukocyte Esterase, Urine Auto trace negative [facility]: [address] [facility] Normal Blood, Urine Blood negative negative [facility]: [address] [facility] Normal WBC, Urine Auto 3 /hpf 0-3 /hpf [facility]: [address] [facility] Normal RBC, Urine Auto 2 /hpf 0-3 /hpf [facility]: [address] [facility] Normal Bacteria, Urine Auto negative negati ve [facility]: [address] [facility] Normal Squamous Epithelial Cell Ur AU 0 /hp f 0-6 /hpf [facility]: [address] [facility] Normal Mucus, Urine small negative [facility]: [address] [facility] Normal Hyaline Cast, Urine Auto 1 /lpf 0-1 /lpf [facility]: [address] [facility] Normal Calcium Oxalate Crystals small none [facility]: [address] [facility] 10/06/2020 CBC W/ Auto Diff Normal White Blood Count 8.2 10 4.0-10.0 10 [facility]: [address] [facility] Normal Red Blood Count 4.83 10 4.30-6.10 10 [facility]: [address] [facility] Normal Hemoglobin 14.7 g/dL 13.5-17.5 g/dL [facility]: [address] [facility] Normal Hematocrit 45.5 % 42.0-52.0 % [facility]: [address] [facility] Normal Mean Corpuscular Volume 94.2 fL 80.0 -96.0 fL Final [facility]: [address] [facility] Normal Mean Corpuscular Hemoglobin 30.4 pg 27.0-33.0 pg [facility]: [address] [facility] Normal Mean Corpuscular HGB Conc 32.3 g/dL 32.0-36.5 g/dL Final [facility]: [address] [facility] Normal Red Cell Distribution Width 12.6 % 1 1.5-14.5 % [facility]: [address] [place] [address] Normal Platelet Count, Automated 225 10 150 -450 10 [facility]: [address] [facility] High Neutrophils % 72.5 % 36.0-66.0 % [facility]: [address] [facility] Low Lymph % 18.2 % 24.0-44.0 % [facility]: [address] [facility] High Ward % 6.0 % 0.0-5.0 % Final [facility]: 0 [facility] Normal Eos % 2.2 % 0.0-3.0 % [facility]: [address] [facility] Normal Baso % 0.7 % 0.0-1.0 % Final [facility]: [address] [facility] Normal Immature Granulocyte % 0.4 % 0-3.0 % [facility]: [address] [facility] Normal Nucleated Red Blood Cell % 0.0 % 0- 0 % [facility]: 0 [facility] Normal Neutrophils # 5.9 10 1.5-8.[address] [facility]: [address] [facility] Normal Lymph # 1.5 10 1.5-5.0 10 [facility]: [address] [facility] Normal Ward # 0.5 10 0.0-0.8 10 [facility]: [address] [facility] Normal Eos # 0.2 10 0.0-0.5 10 [facility]: [address] [facility] Normal Baso # 0.1 10 0.0-0.2 10 [facility]: [address] [facility] 10/06/2020 CMP, Serum or Plasma High Glucose, Fastin g 120 mg/dL 70-100 mg/dL [facility]: [address] [facility] High Blood Urea Nitrogen 27 mg/dL 7-18 mg /dL [facility]: [address] [facility] Normal Creatinine for GFR 1.20 mg/dL 0.70-1 .30 mg/dL [facility]: [address] [facility] Normal Glomerular Filtration Rate > 60.0 >4 2 [facility]: [address] [facility] Normal Sodium Level 137 mEq/L 136-145 mEq/L [facility]: [address] [facility] Normal Potassium Serum 4.8 mEq/L 3.5-5.1 mE q/L [facility]: [address] [facility] Normal Chloride Level 104 mEq/L 98-107 mEq/ L [facility]: [address] [facility] Normal Carbon Dioxide Level 28 mEq/L 21-32 mEq/L [facility]: [address] [facility] Low Anion Gap 5 mEq/L 8-16 mEq/L [facility]: [address] [facility] Normal Calcium Level 9.1 mg/dL 8.8-10.2 mg/ dL [facility]: [address] [facility] Normal AST/SGOT 13 U/L 7-37 U/L [facility]: [address] [facility] Normal ALT/SGPT 21 U/L 12-78 U/L [facility]: [address] [facility] Normal Alkaline Phosphatase 75 U/L 45-117 U /L [facility]: [address] [facility] Normal Bilirubin,total 0.5 mg/dL 0.2-1.0 mg /dL [facility]: [address] [facility] Normal Total Protein 6.9 gm/dL 6.4-8.2 gm/d L [facility]: [address] [facility] Normal Albumin 4.1 gm/dL 3.2-5.2 gm/dL Megan l [facility]: [address] [facility] Normal Albumin/globulin Ratio 1.5 [facility]: [address] [facility] 10/06/2020 Lipid Panel, Blood Normal Triglycerides Lev el 82 mg/dL <150 mg/dL [facility]: [address] [facility] Normal Cholesterol Level 135 mg/dL <200 mg/ dL [facility]: 0 [facility] Low HDL Cholesterol 38 mg/dL >40 mg/dL F [facility]: [address] [facility] Normal LDL Cholesterol 81 mg/dL <100 mg/dL [facility]: [address] [facility] Normal Non-hdl-c 97 mg/dL [facility]: [address] [facility] Normal Cholesterol Risk Ratio 3.552 <5 [facility]: 0 [facility] 10/06/2020 TSH + Free T4, Serum High Thyroid Stimulating Hormone 4.440 uIU/mL 0.358-3.740 uIU/mL [facility]: [address] [facility] Normal Free T4 1.12 NG/dL 0.76-1.46 NG/dL F [facility]: [address] [facility] 10/06/2020 Vitamin D, 25-Hydroxy, Total, Serum Normal Total 25(Oh) Vitamin D 60.9 NG/mL 30.0-100.0 NG/mL [facility]: 0 [facility] 10/06/2020 HbA1C (Hemoglobin a1C), Blood Normal Hemogl obin a1C 5.8 % [facility]: 0 [facility] High Estimated Average Glucose 120 mg/dL 60-110 mg/dL Final [facility]: [address] [facility] 10/06/2020 Culture, Urine URINE,CLEAN CATCH No observation recorded. [facility]: [address] [facility] 10/06/2020 PSA, Total + Free, Serum or Plasma Normal P SA Total 2.6 NG/mL 0.0-4.0 NG/mL Final [facility]: [address] [facility] Normal PSA Comment . Final [facility]: [address] [facility] 10/06/2020 Urinalysis, Dipstick, Auto Urine ABNORMAL Bilirubin pos Final [facility]: [address] [facility] Urine Normal Blood neg Final [facility]: [address] [facility] Urine Normal Glucose neg Final [facility]: [address] [facility] Urine Normal Ketone pos Final [facility]: [address] [facility] Urine Normal Leukocytes pos Final [facility]: [address] [facility] Urine Normal Nitrite neg Final [facility]: [address] [facility] Urine Normal Ph 5.5 Final [facility]: [address] [facility] Urine Normal Protein pos Final [facility]: [address] [facility] Urine Normal Specific [place] 1.030 Final [facility]: [address] [facility] Urine Normal Urobilinogen 0.2 mg/dL Final [facility]: [address] [facility] Past Encounters 09/03/2021 Administration of Influenza Vaccine Jerald Mccray MD: [address] [place] [phone], Ph. 09/03/2021 Administration of SARS-CoV-2 Antigen Vaccine Jerald Mccray MD: [address] [place] [phone], Ph. 08/31/2021 Dyspnea; Hyperlipidemia; Adult Health Examination; Seasonal Allergic Rhinitis; Vitamin D Deficiency; Urinary Symptoms; Impacted Cerumen Nya Razo, CONTINUOUS [employer]ESS [employer]: [address] [place] [phone], Ph. 07/30/2021 Patient New to Provider; Immunization Advised; Nicotine Dependence; Cough; Acute Urinary Tract Infection MILAGRO Clemons: [address] [place] [phone], Ph. 12/17/2020 Administration of SARS-CoV-2 Antigen Vaccine Jerald Mccray MD: [address] [place] [phone], Ph. 11/17/2020 Schizoaffective Disorder Christianne Deshpande MD: [address] [place] [phone], Ph. 10/06/2020 Dysuria; Acute Urinary Tract Infection; Type II Diabetes Mellitus Uncontrolled; Nicotine Dependence; Needs Influenza Immunization; Generalized Anxiety Disorder MILAGRO Patel-[facility]: [address] [place] [phone], Ph. Social History Tobacco Smoking Status Heavy Tobacco Smoker (1 pack per day) Vaccine List Vaccine Type COVID-19, mRNA, LNP-S, PF, 100 mcg/0.5 m L dose (Moderna) 10.5 mL 10.5 mL influenza, injectable, quadrivalent, pre servative free 08/15/20190.5 mL 10/06/20200.5 mL 09/03/2021 influenza, seasonal, injectable 07/11/2014 07/23/2015 pneumococcal conjugate PCV 13 10/06/20150.5 mL pneumococcal polysaccharide PPV23 08/21/20140.5 mL Tdap 01/05/20160.5 mL Plan of Care Reminders Provider Appointments None recorded. Lab None recorded. Referral None recorded. Procedures None recorded. Surgeries None recorded. Imaging None recorded. Vitals 09/03/2021 10:50AM NURSE Height 65 in 08/31/2021 01:00PM ESTABLISHED [id number] Height Weight BMI Blood Pressure 65 in 138 lbs 2 oz 23 kg/m2 138/94 mm[Hg] 07/30/2021 11:00AM ESTABLISHED [id number] Height Weight BMI Blood Pressure 65 in 143 lbs 23.8 kg/m2 122/82 mm[Hg] 11/17/2020 01:00PM TELEPSYCH 30 Height Weight BMI 65 in 143 lbs 23.8 kg/m2 10/06/2020 09:20AM ESTABLISHED [id number] Height Weight BMI Blood Pressure 65 in [...]
--- OUTSIDE RECORDS SUMMARY | 2021-10-04 19:19 | CCD ---
Author Organization Unknown Address [address] [place] [address] Phone [phone] Care Team Providers Care Lap Machine Operator Name Role Phone Nya Razo Unavailable Unavailable [...] [facility], [place]: [address] [facility] Blood venous Low HDL Cholesterol 31 mg/dL > or = 40 mg/dL Final [facility], [place]: [address] , [place] Blood venous Normal Triglycerides 120 mg/dL <150 mg/dL Final [facility] [place]: [address] [facility] Blood venous High LDL-cholesterol 102 mg/dL (ca lc) Final [facility]: [address] [facility] Blood venous High Chol/hdlc Ratio 5.0 (calc) <5 .0 (calc) Final [facility]: [address] [facility] Blood venous Normal Non HDL Cholesterol 124 mg/dL (calc) <130 mg/dL (calc) Final [facility] [address] [facility] CMP, Serum or Plasma Blood venous High Glucose 103 mg/dL 65-99 mg/dL Final [facility]: [address] [facility] Blood venous Normal Urea Nitrogen (BUN) 19 mg/dL 7-25 mg/dL Final [facility]: [address] [facility] Blood venous Normal Creatinine 0.95 mg/dL 0.70-1. 18 mg/dL [facility]: [address] [facility] Blood venous Normal eGFR Non-afr. Gibraltarian 8 0 mL/min/1.73m2 > or = 60 mL/min/1.73m2 Final [facility]: [address] [facility] Blood venous Normal eGFR 92 mL/min/1.73m2 > or = 60 mL/min/1.73m2 Final [facility]: [address] [facility] Blood venous BUN/creatinine Ratio not applicable (calc) 6-22 (calc) Final [facility]: [address] [facility] Blood venous Normal Sodium 140 mmol/L 135-146 mmo l/L Final [facility]: [address] [facility] Blood venous Normal Potassium 4.6 mmol/L 3.5-5.3 mmol/L Final [facility]: [address] [facility] Blood venous Normal Chloride 107 mmol/L 98-110 mm ol/L Final [facility]: [address] [facility] Blood venous Normal Carbon Dioxide 27 mmol/L 20-3 2 mmol/L [facility]: [address] [facility] Blood venous Normal Calcium 9.2 mg/dL 8.6-10.3 mg /dL Final [facility]: [address] [facility] Blood venous Normal Protein, Total 6.7 g/dL 6.1-8 .1 g/dL Final [facility]: [address] [facility] Blood venous Normal Albumin 4.3 g/dL 3.6-5.1 g/dL [facility]: [address] [facility] Blood venous Normal Globulin 2.4 g/dL (calc) 1.9- 3.7 g/dL (calc) [facility]: [address] [facility] Blood venous Normal Albumin/globulin Ratio 1 .8 (calc) 1.0-2.5 (calc) [facility]: [address] [facility] Blood venous Normal Bilirubin, Total 0.7 mg/dL 0. 2-1.2 mg/dL [facility]: [address] [facility] Blood venous Normal Alkaline Phosphatase 72 U/L 3 5-144 U/L [facility]: [address] [facility] Blood venous Normal Ast 13 U/L 10-35 U/L Final [facility]: [address] [facility] Blood venous Normal Alt 10 U/L 9-46 U/L [facility] [address] [facility] 07/30/2021 CBC W/ Auto Diff Blood venous Normal White B lood Cell Count 8.5 thousand/uL 3.8-10.8 thousand/uL [facility]: [address] [facility] Blood venous Normal Red Blood Cell Count 4.6 3 million/uL 4.20-5.80 million/uL [facility] [address] [facility] Blood venous Normal Hemoglobin 14.6 g/dL 13.2-17. 1 g/dL Final [facility]: [address] [facility] Blood venous Normal Hematocrit 41.9 % 38.5-50.0 % Final [facility]: [address] [facility] Blood venous Normal Mcv 90.5 fL 80.0-100.0 fL Fi nal [facility]: [address] [facility] Blood venous Normal Mch 31.5 pg 27.0-33.0 pg Fin al [facility]: [address] [facility] Blood venous Normal Mchc 34.8 g/dL 32.0-36.0 g/dL [facility]: [address] [facility] Blood venous Normal Rdw 12.4 % 11.0-15.0 % [facility]: [address] [facility] Blood venous Normal Platelet Count 253 thous and/uL 140-400 thousand/uL [facility]: [address] [facility] Blood venous Normal Mpv 9.8 fL 7.5-12.5 fL [facility]: [address] [facility] Blood venous Normal Absolute Neutrophils 614 6 cells/uL 9088-8640 cells/uL [facility]: [address] [facility] Blood venous Normal Absolute Lymphocytes 147 9 cells/uL 850-3900 cells/uL [facility]: [address] [facility] Blood venous Normal Absolute Monocytes 655 c ells/uL 200-950 cells/uL [facility]: [address] [facility] Blood venous Normal Absolute Eosinophils 162 cells/uL 15-500 cells/uL [facility]: [address] [facility] Normal Absolute Basophils 60 ce lls/uL 0-200 cells/uL [facility]: [address] [facility] Blood venous Normal Neutrophils 72.3 % 38-80 % Fi [facility]: [address] [facility] Blood venous Normal Lymphocytes 17.4 % 15-49 % Fi [facility]: [address] [facility] Blood venous Normal Monocytes 7.7 % 0-13 % [facility]: [address] [facility] Blood venous Normal Eosinophils 1.9 % 0-8 % Fin [facility]: [address] [facility] Blood venous Normal Basophils 0.7 % 0-2 % [facility]: [address] [facility] 07/30/2021 TSH, Serum or Plasma Normal TSH W/reflex to FT4 1.29 mIU/L 0.40-4.50 mIU/L [facility]: [address] [facility] 07/30/2021 HbA1C (Hemoglobin a1C), Blood Blood venous High Hemoglobin a1C 5.8 % of total HGB <5.7 % of total HGB Final [facility]: [address] [place], [place] 07/30/2021 CT RNA, Qual, PCR, Unspecified Specimen Chlamydia Trachomatis RNA Tma, Urogenital (Refl) tnp Final [facility]: [address], [place] 07/30/2021 Culture, Urine Urine Culture, Urine, Routine see note Final [facility]: [address] [place] 07/30/2021 Urinalysis, Dipstick, Auto Normal Bilirubin ne g Final [facility] Medical: [address] [facility] Normal Blood neg Final [facility] Medical: [address] [facility] Normal Glucose neg Final [facility] Medical: [address] [facility] Normal Ketone +- Final [facility] Medical: [address] [facility] Normal Leukocytes neg Final [facility] Medical: [address] [facility] Normal Nitrite neg Final [facility] Medical: [address] [facility] Normal Ph 5.5 Final [facility] Medical: [address] [facility] Normal Protein +- Final [facility] Medical: [address] [facility] Normal Specific [place] 1.030 Final [facility] Medical: [address] [facility] Normal Urobilinogen 0.2 Final [facility] [place] [facility]: [address] [facility] 07/30/2021 SARS CoV 2 RdRp Gene, QL Probe, Respiratory Spec imen Nasopharyngeal Normal Sars-cov-2 negative negative Final [facility] Medical: [address] [facility] 10/06/2020 Urinalysis, Dipstick Normal Appearance, Urine hazy clear Final [facility]: [address] [facility] Normal Color, Urine yellow yellow Final [facility]: [address] [facility] Normal pH,urine 5.0 units 5.0-9.0 units Fin [facility]: [address] [facility] Normal Specific [place] Urine Auto 1.021 1 .002-1.035 [facility]: [address] [facility] Normal Protein, Urine Auto negative mg/dL n egative mg/dL [facility]: [address] [facility] Normal Glucose, Urine (UA) Auto negative mg /dL negative mg/dL [facility]: [address] [facility] High Ketone, Urine Auto trace mg/dL negat asia mg/dL [facility]: [address] [facility] High Urobilinogen, Urine Auto 2.0 mg/dL 0 .0-2.0 mg/dL [facility]: [address] [facility] Normal Bilirubin, Urine Auto negative negat asia [facility]: [address] [facility] Normal Nitrite, Urine Auto negative negativ e [facility]: [address] [facility] High Leukocyte Esterase, Urine Auto trace negative [facility]: [address] [facility] Normal Blood, Urine Blood negative negative [facility]: [address] [facility] Normal WBC, Urine Auto 3 /hpf 0-3 /hpf [facility]: [address] [facility] Normal RBC, Urine Auto 2 /hpf 0-3 /hpf [facility]: [address] [facility] Normal Bacteria, Urine Auto negative negati ve [facility]: [address] [facility] Normal Squamous Epithelial Cell Ur AU 0 /hp f 0-6 /hpf [facility]: [address] [facility] Normal Mucus, Urine small negative [facility]: [address] [facility] Normal Hyaline Cast, Urine Auto 1 /lpf 0-1 /lpf [facility]: [address] [facility] Normal Calcium Oxalate Crystals small none [facility]: [address] [facility] 10/06/2020 CBC W/ Auto Diff Normal White Blood Count 8.2 10 4.0-10.0 10 [facility]: [address] [facility] Normal Red Blood Count 4.83 10 4.30-6.10 10 [facility]: [address] [facility] Normal Hemoglobin 14.7 g/dL 13.5-17.5 g/dL [facility]: [address] [facility] Normal Hematocrit 45.5 % 42.0-52.0 % [facility]: [address] [facility] Normal Mean Corpuscular Volume 94.2 fL 80.0 -96.0 fL Final [facility]: [address] [facility] Normal Mean Corpuscular Hemoglobin 30.4 pg 27.0-33.0 pg [facility]: [address] [facility] Normal Mean Corpuscular HGB Conc 32.3 g/dL 32.0-36.5 g/dL Final [facility]: [address] [facility] Normal Red Cell Distribution Width 12.6 % 1 1.5-14.5 % [facility]: [address] [place] [address] Normal Platelet Count, Automated 225 10 150 -450 10 [facility]: [address] [facility] High Neutrophils % 72.5 % 36.0-66.0 % [facility]: [address] [facility] Low Lymph % 18.2 % 24.0-44.0 % [facility]: [address] [facility] High [place] % 6.0 % 0.0-5.0 % Final [facility]: 0 [facility] Normal Eos % 2.2 % 0.0-3.0 % [facility]: [address] [facility] Normal Baso % 0.7 % 0.0-1.0 % Final [facility]: [address] [facility] Normal Immature Granulocyte % 0.4 % 0-3.0 % [facility]: [address] [facility] Normal Nucleated Red Blood Cell % 0.0 % 0- 0 % [facility]: 0 [facility] Normal Neutrophils # 5.9 10 1.5-8.[address] [facility]: [address] [facility] Normal Lymph # 1.5 10 1.5-5.0 10 [facility]: [address] [facility] Normal [place] # 0.5 10 0.0-0.8 10 [facility]: [address] [facility] Normal Eos # 0.2 10 0.0-0.5 10 [facility]: [address] [facility] Normal Baso # 0.1 10 0.0-0.2 10 [facility]: [address] [facility] 10/06/2020 CMP, Serum or Plasma High Glucose, Fastin g 120 mg/dL 70-100 mg/dL [facility]: 83 0 [facility] High Blood Urea Nitrogen 27 mg/dL 7-18 mg /dL [facility]: [address] [facility] Normal Creatinine for GFR 1.20 mg/dL 0.70-1 .30 mg/dL [facility]: [address] [facility] Normal Glomerular Filtration Rate > 60.0 >4 2 [facility]: [address] [facility] Normal Sodium Level 137 mEq/L 136-145 mEq/L [facility]: [address] [facility] Normal Potassium Serum 4.8 mEq/L 3.5-5.1 mE q/L [facility]: [address] [facility] Normal Chloride Level 104 mEq/L 98-107 mEq/ L [facility]: [address] [facility] Normal Carbon Dioxide Level 28 mEq/L 21-32 mEq/L [facility]: [address] [facility] Low Anion Gap 5 mEq/L 8-16 mEq/L [facility]: [address] [facility] Normal Calcium Level 9.1 mg/dL 8.8-10.2 mg/ dL [facility]: [address] [facility] Normal AST/SGOT 13 U/L 7-37 U/L [facility]: [address] [facility] Normal ALT/SGPT 21 U/L 12-78 U/L [facility]: [address] [facility] Normal Alkaline Phosphatase 75 U/L 45-117 U /L [facility]: [address] [facility] Normal Bilirubin,total 0.5 mg/dL 0.2-1.0 mg /dL [facility]: [address] [facility] Normal Total Protein 6.9 gm/dL 6.4-8.2 gm/d L [facility]: [address] [facility] Normal Albumin 4.1 gm/dL 3.2-5.2 gm/dL Megan l [facility]: [address] [facility] Normal Albumin/globulin Ratio 1.5 [facility]: [address] [facility] 10/06/2020 Lipid Panel, Blood Normal Triglycerides Lev el 82 mg/dL <150 mg/dL [facility]: 83 0 [facility] Normal Cholesterol Level 135 mg/dL <200 mg/ dL [facility]: 0 [facility] Low HDL Cholesterol 38 mg/dL >40 mg/dL F [facility]: [address] [facility] Normal LDL Cholesterol 81 mg/dL <100 mg/dL [facility]: [address] [facility] Normal Non-hdl-c 97 mg/dL [facility]: [address] [facility] Normal Cholesterol Risk Ratio 3.552 <5 [facility]: 0 [facility] 10/06/2020 TSH + Free T4, Serum High Thyroid Stimulating Hormone 4.440 uIU/mL 0.358-3.740 uIU/mL [facility]ter: [address] [facility] Normal Free T4 1.12 NG/dL 0.76-1.46 NG/dL F [facility]: [address] [facility] 10/06/2020 Vitamin D, 25-Hydroxy, Total, Serum Normal Total 25(Oh) Vitamin D 60.9 NG/mL 30.0-100.0 NG/mL [facility] Center: 0 [facility] 10/06/2020 HbA1C (Hemoglobin a1C), Blood Normal Hemogl obin a1C 5.8 % [facility]: 0 [facility] High Estimated Average Glucose 120 mg/dL 60-110 mg/dL Final [facility]: [address] [facility] 10/06/2020 Culture, Urine URINE,CLEAN CATCH No observation recorded. [facility]: [address] [facility] 10/06/2020 PSA, Total + Free, Serum or Plasma Normal P SA Total 2.6 NG/mL 0.0-4.0 NG/mL Final [facility]: 83 0 [facility] Normal PSA Comment . Final [facility]: [address] [facility] 10/06/2020 Urinalysis, Dipstick, Auto Urine ABNORMAL Bilirubin pos Final [facility] Medical: [address] [facility] Urine Normal Blood neg Final [facility] Medical: [address] [facility] Urine Normal Glucose neg Final [facility] Medical: [address] [facility] Urine Normal Ketone pos Final [facility] Medical: [address] [facility] Urine Normal Leukocytes pos Final [facility] Medical: [address] [facility] Urine Normal Nitrite neg Final [facility] Medical[facility] [address] [facility] Urine Normal Ph 5.5 Final [facility] Medical: [address] [facility] Urine Normal Protein pos Final [facility] Medical: [address] [facility] Urine Normal Specific [place] 1.030 Final [facility] Medical: [address] [facility] Urine Normal Urobilinogen 0.2 mg/dL Final [facility] Medical: [address] [facility] Past Encounters 09/03/2021 Administration of Influenza Vaccine Jerald Mccray MD: [address] [place] [phone], Ph. 09/03/2021 Administration of SARS-CoV-2 Antigen Vaccine Jerald Mccray MD: [address] [place] [address], Ph. 08/31/2021 Dyspnea; Hyperlipidemia; Adult Health Examination; Seasonal Allergic Rhinitis; Vitamin D Deficiency; Urinary Symptoms; Impacted Cerumen Nya Razo, WASHING MACHINE REPAIRER: [address] [place] [address], Ph. 07/30/2021 Patient New to Provider; Immunization Advised; Nicotine Dependence; Cough; Acute Urinary Tract Infection MILAGRO Clemons: [address] [place] [phone], Ph. 12/17/2020 Administration of SARS-CoV-2 Antigen Vaccine Jerald Mccray MD: [address] [place] [phone], Ph. 11/17/2020 Schizoaffective Disorder Christianne Deshpande MD: [address] [place] [phone], Ph. 10/06/2020 Dysuria; Acute Urinary Tract Infection; Type II Diabetes Mellitus Uncontrolled; Nicotine Dependence; Needs Influenza Immunization; Generalized Anxiety Disorder MILAGRO Patel-BC: [address] [place] [phone], Ph. Social History Tobacco Smoking Status Heavy [...] NURSE Height 65 in 08/31/2021 01:00PM ESTABLISHED [id number] Height Weight BMI Blood Pressure 65 in 138 lbs 2 oz 23 kg/m2 138/94 mm[Hg] 07/30/2021 11:00AM ESTABLISHED [id number] Height Weight BMI Blood Pressure 65 in 143 lbs 23.8 kg/m2 122/82 mm[Hg] 11/17/2020 01:00PM TELEPSYCH 30 Height Weight BMI 65 in 143 lbs 23.8 kg/m2 10/06/2020 09:20AM ESTABLISHED [id number] Height Weight BMI Blood Pressure 65 in [...]
--- OUTSIDE RECORDS SUMMARY | 2021-10-04 19:19 | CCD ---
Author Organization Unknown Address [address] [place] [address] Phone [phone] Care Team Providers Care Health And Safety Coordinator Name Role Phone Nya Razo Unavailable Unavailable [...] 155 mg/dL <200 mg/dL Final [facility]: [address] [facility] Blood venous Low HDL Cholesterol 31 mg/dL > or = 40 mg/dL Final [facility]: [address] [facility] Blood venous Normal Triglycerides 120 mg/dL <150 mg/dL Final [facility]: [address] [facility] Blood venous High LDL-cholesterol 102 mg/dL (ca lc) Final [facility]: [address] [facility] Blood venous High Chol/hdlc Ratio 5.0 (calc) <5 .0 (calc) Final [facility]: [address] [facility] Blood venous Normal Non HDL Cholesterol 124 mg/dL (calc) <130 mg/dL (calc) Final [facility]: [address] [facility] 07/30/2021 CMP, Serum or Plasma Blood venous High Glucose 103 mg/dL 65-99 mg/dL Final [facility]: [address] [facility] Blood venous Normal Urea Nitrogen (BUN) 19 mg/dL 7-25 mg/dL Final [facility]: [address] [facility] Blood venous Normal Creatinine 0.95 mg/dL 0.70-1. 18 mg/dL [facility]: [address] [facility] Blood venous Normal eGFR Non-afr. [place] 8 0 mL/min/1.73m2 > or = 60 mL/min/1.73m2 Final [facility]: [address] [facility] Blood venous Normal eGFR 92 mL/min/1.73m2 > or = 60 mL/min/1.73m2 Final [facility]: [address] [facility] Blood venous BUN/creatinine Ratio not applicable (calc) 6-22 (calc) Final [facility]: [address] [facility] Blood venous Normal Sodium 140 mmol/L 135-146 mmo l/L Final [facility]: [address] [facility] Blood venous Normal Potassium 4.6 mmol/L 3.5-5.3 mmol/L [facility]: [address] [facility] Blood venous Normal Chloride 107 mmol/L 98-110 mm ol/L [facility]: [address] [facility] Blood venous Normal Carbon Dioxide 27 mmol/L 20-3 2 mmol/L Final [facility]: [address] [facility] Blood venous Normal Calcium 9.2 mg/dL 8.6-10.3 mg /dL Final [facility]: [address] [facility] Blood venous Normal Protein, Total 6.7 g/dL 6.1-8 .1 g/dL [facility]: [address] [facility] Blood venous Normal Albumin 4.3 g/dL 3.6-5.1 g/dL [facility]: [address] [facility] Blood venous Normal Globulin 2.4 g/dL (calc) 1.9- 3.7 g/dL (calc) [facility]: [address] [facility] Blood venous Normal Albumin/globulin Ratio 1 .8 (calc) 1.0-2.5 (calc) [facility]: [address] [facility] Blood venous Normal Bilirubin, Total 0.7 mg/dL 0. 2-1.2 mg/dL [facility]: [address] [facility] Blood venous Normal Alkaline Phosphatase 72 U/L 3 5-144 U/L Final [facility]: [address] [facility] Blood venous Normal Ast 13 U/L 10-35 U/L [facility]: [address] [facility] Blood venous Normal Alt 10 U/L 9-46 U/L Final [facility]: [address] [facility] 07/30/2021 CBC W/ Auto Diff Blood venous Normal White B lood Cell Count 8.5 thousand/uL 3.8-10.8 thousand/uL [facility]: [address] [facility] Blood venous Normal Red Blood Cell Count 4.6 3 million/uL 4.20-5.80 million/uL [facility] [address] [facility] Blood venous Normal Hemoglobin 14.6 g/dL 13.2-17. 1 g/dL [facility]: [address] [facility] Blood venous Normal Hematocrit 41.9 % 38.5-50.0 % [facility]: [address] [facility] Blood venous Normal Mcv 90.5 fL 80.0-100.[address] [facility]: [address] [facility] Blood venous Normal Mch 31.5 pg 27.0-33.0 pg Fin [facility]: [address] [facility] Blood venous Normal Mchc 34.8 g/dL 32.0-36.0 g/dL [facility]: [address] [facility] Blood venous Normal Rdw 12.4 % 11.0-15.0 % [facility]: [address] [facility] Blood venous Normal Platelet Count 253 thous and/uL 140-400 thousand/uL [facility]: [address] [facility] Blood venous Normal Mpv 9.8 fL 7.5-12.5 fL [facility]: [address] [facility] Blood venous Normal Absolute Neutrophils 614 6 cells/uL 7298-7770 cells/uL [facility]: [address] [facility] Blood venous Normal Absolute Lymphocytes 147 9 cells/uL 850-3900 cells/uL [facility]: [address] [facility] Blood venous Normal Absolute Monocytes 655 c ells/uL 200-950 cells/uL [facility]: [address] [facility] Blood venous Normal Absolute Eosinophils 162 cells/uL 15-500 cells/uL [facility]: [address] [facility] Blood venous Normal Absolute Basophils 60 ce lls/uL 0-200 cells/uL [facility]: [address] [facility] Blood venous Normal Neutrophils 72.3 % 38-80 % Fi [facility]: [address] [facility] Blood venous Normal Lymphocytes 17.4 % 15-49 % Fi [facility]: [address] [facility] Blood venous Normal Monocytes 7.7 % 0-13 % [facility]: [address] [facility] Blood venous Normal Eosinophils 1.9 % 0-8 % Fin [facility]: [address] [facility] Blood venous Normal Basophils 0.7 % 0-2 % [facility]: [address] [facility] 07/30/2021 TSH, Serum or Plasma Normal TSH W/reflex to FT4 1.29 mIU/L 0.40-4.50 mIU/L [facility]: [address] [facility] 07/30/2021 HbA1C (Hemoglobin a1C), Blood Blood venous High Hemoglobin a1C 5.8 % of total HGB <5.7 % of total HGB Final [facility]: [address] [facility] 07/30/2021 CT RNA, Qual, PCR, Unspecified Specimen Chlamydia Trachomatis RNA Tma, Urogenital (Refl) tnp Final [facility]: [address] [facility] 07/30/2021 Culture, Urine Urine Culture, Urine, Routine see note Final [facility]: [address] [facility] 07/30/2021 Urinalysis, Dipstick, Auto Normal Bilirubin ne g Final [facility]: [address] [facility] Normal Blood neg Final [facility]: [address] [facility] Normal Glucose neg Final [facility]: [address] [facility] Normal Ketone +- Final [facility]: [address] [facility] Normal Leukocytes neg Final [facility]: [address] [facility] Normal Nitrite neg Final [facility]: [address] [facility] Normal Ph 5.5 Final [facility]: [address] [facility] Normal Protein +- Final [facility]: [address] [facility] Normal Specific [place] 1.030 Final [facility]: [address] [facility] Normal Urobilinogen 0.2 Final [facility]: [address] [facility] 07/30/2021 SARS CoV 2 RdRp Gene, QL Probe, Respiratory Spec imen Nasopharyngeal Normal Sars-cov-2 negative negative Final [facility]: [address] [facility] 10/06/2020 Urinalysis, Dipstick Normal Appearance, Urine hazy clear Final [facility]: [address] [facility] Normal Color, Urine yellow yellow Final [facility]: [address] [facility] Normal pH,urine 5.0 units 5.0-9.0 units Fin al [facility]: [address] [facility] Normal Specific [place] Urine Auto 1.021 1 .002-1.035 [facility]: [address] [facility] Normal Protein, Urine Auto negative mg/dL n egative mg/dL [facility]: [address] [facility] Normal Glucose, Urine (UA) Auto negative mg /dL negative mg/dL [facility]: [address] [facility] High Ketone, Urine Auto trace mg/dL negat asia mg/dL [facility]: [address] [facility] High Urobilinogen, Urine Auto 2.0 mg/dL 0 .0-2.0 mg/dL [facility]: [address] [facility] Normal Bilirubin, Urine Auto negative negat asia [facility]: [address] [facility] Normal Nitrite, Urine Auto negative negativ e [facility]: [address] [facility] High Leukocyte Esterase, Urine Auto trace negative [facility]: [address] [facility] Normal Blood, Urine Blood negative negative [facility]: [address] [facility] Normal WBC, Urine Auto 3 /hpf 0-3 /hpf [facility]: [address] [facility] Normal RBC, Urine Auto 2 /hpf 0-3 /hpf [facility]: [address] [facility] Normal Bacteria, Urine Auto negative negati ve [facility]: [address] [facility] Normal Squamous Epithelial Cell Ur AU 0 /hp f 0-6 /hpf [facility]: [address] [facility] Normal Mucus, Urine small negative [facility]: [address] [facility] Normal Hyaline Cast, Urine Auto 1 /lpf 0-1 /lpf [facility]: [address] [facility] Normal Calcium Oxalate Crystals small none [facility]: [address] [facility] 10/06/2020 CBC W/ Auto Diff Normal White Blood Count 8.2 10 4.0-10.0 10 [facility]: [address] [facility] Normal Red Blood Count 4.83 10 4.30-6.10 10 [facility]: [address] [facility] Normal Hemoglobin 14.7 g/dL 13.5-17.5 g/dL [facility]: [address] [facility] Normal Hematocrit 45.5 % 42.0-52.0 % [facility]: [address] [facility] Normal Mean Corpuscular Volume 94.2 fL 80.0 -96.0 fL [facility]: [address] [place] [address] Normal Mean Corpuscular Hemoglobin 30.4 pg 27.0-33.0 pg [facility]: [address] [facility] Normal Mean Corpuscular HGB Conc 32.3 g/dL 32.0-36.5 g/dL [facility]: 0 [facility] Normal Red Cell Distribution Width 12.6 % 1 1.5-14.5 % [facility]: [address] [place] [address] Normal Platelet Count, Automated 225 10 150 -450 10 [facility]: 0 [facility] High Neutrophils % 72.5 % 36.0-66.0 % [facility]: [address] [facility] Low Lymph % 18.2 % 24.0-44.0 % [facility]: [address] [facility] High [place] % 6.0 % 0.0-5.0 % [facility]: [address] [facility] Normal Eos % 2.2 % 0.0-3.0 % [facility]: [address] [facility] Normal Baso % 0.7 % 0.0-1.0 % [facility]: [address] [facility] Normal Immature Granulocyte % 0.4 % 0-3.0 % [facility]: 0 [facility] Normal Nucleated Red Blood Cell % 0.0 % 0- 0 % [facility]: 0 [facility] Normal Neutrophils # 5.9 10 1.5-8.5 10 [facility]: [address] [facility] Normal Lymph # 1.5 10 1.5-5.0 10 [facility]: [address] [facility] Normal [place] # 0.5 10 0.0-0.8 10 [facility]: [address] [facility] Normal Eos # 0.2 10 0.0-0.5 10 [facility]: [address] [facility] Normal Baso # 0.1 10 0.0-0.2 10 [facility]: [address] [facility] 10/06/2020 CMP, Serum or Plasma High Glucose, Fastin g 120 mg/dL 70-100 mg/dL [facility]: 83 0 [facility] High Blood Urea Nitrogen 27 mg/dL 7-18 mg /dL [facility]: 0 [facility] Normal Creatinine for GFR 1.20 mg/dL 0.70-1 .30 mg/dL [facility]: 0 [facility] Normal Glomerular Filtration Rate > 60.0 >4 2 [facility]: [address] [facility] Normal Sodium Level 137 mEq/L 136-145 mEq/L [facility]: [address] [facility] Normal Potassium Serum 4.8 mEq/L 3.5-5.1 mE q/L [facility]: [address] [facility] Normal Chloride Level 104 mEq/L 98-107 mEq/ L [facility]: [address] [facility] Normal Carbon Dioxide Level 28 mEq/L 21-32 mEq/L [facility]: [address] [facility] Low Anion Gap 5 mEq/L 8-16 mEq/L [facility]: [address] [facility] Normal Calcium Level 9.1 mg/dL 8.8-10.2 mg/ dL [facility]: [address] [facility] Normal AST/SGOT 13 U/L 7-37 U/L [facility]: [address] [facility] Normal ALT/SGPT 21 U/L 12-78 U/L [facility]: [address] [facility] Normal Alkaline Phosphatase 75 U/L 45-117 U /L [facility]: [address] [facility] Normal Bilirubin,total 0.5 mg/dL 0.2-1.0 mg /dL [facility]: [address] [facility] Normal Total Protein 6.9 gm/dL 6.4-8.2 gm/d L [facility]: [address] [facility] Normal Albumin 4.1 gm/dL 3.2-5.2 gm/dL Megan l [facility]: [address] [facility] Normal Albumin/globulin Ratio 1.5 [facility]: [address] [facility] 10/06/2020 Lipid Panel, Blood Normal Triglycerides Lev el 82 mg/dL <150 mg/dL [facility]: [address] 0 [facility] Normal Cholesterol Level 135 mg/dL <200 mg/ dL [facility]: [address] [facility] Low HDL Cholesterol 38 mg/dL >40 mg/dL [facility]: [address] [facility] Normal LDL Cholesterol 81 mg/dL <100 mg/dL [facility]: 0 [facility] Normal Non-hdl-c 97 mg/dL [facility]: [address] [facility] Normal Cholesterol Risk Ratio 3.552 <5 [facility]: [address] [facility] 10/06/2020 TSH + Free T4, Serum High Thyroid Stimulating Hormone 4.440 uIU/mL 0.358-3.740 uIU/mL [facility]ter: [address] [facility] Normal Free T4 1.12 NG/dL 0.76-1.46 NG/dL [facility]: [address] [facility] 10/06/2020 Vitamin D, 25-Hydroxy, Total, Serum Normal Total 25(Oh) Vitamin D 60.9 NG/mL 30.0-100.0 NG/mL [facility]: [address] [facility] 10/06/2020 HbA1C (Hemoglobin a1C), Blood Normal Hemogl obin a1C 5.8 % Final [facility]: [address] [facility] High Estimated Average Glucose 120 mg/dL 60-110 mg/dL Final [facility]: [address] [facility] 10/06/2020 Culture, Urine URINE,CLEAN CATCH No observation recorded. [facility]: [address] [facility] 10/06/2020 PSA, Total + Free, Serum or Plasma Normal P SA Total 2.6 NG/mL 0.0-4.0 NG/mL Final [facility]: [address] [facility] Normal PSA Comment . Final [facility]: [address] [facility] 10/06/2020 Urinalysis, Dipstick, Auto Urine ABNORMAL Bilirubin pos Final [facility] Medical: [address] [facility] Urine Normal Blood neg Final [facility]: [address] [facility] Urine Normal Glucose neg Final [facility]: [address] [facility] Urine Normal Ketone pos Final [facility] Medical: [address] [facility] Urine Normal Leukocytes pos Final [facility]: [address] [facility] Urine Normal Nitrite neg Final [facility] Medical: [address] [facility] Urine Normal Ph 5.5 Final [facility] Medical[facility] [address] [facility] Urine Normal Protein pos Final [facility]: [address] [facility] Urine Normal Specific [place] 1.030 Final [facility] Medical: [address] [facility] Urine Normal Urobilinogen 0.2 mg/dL Final [facility] Medical: [address] [facility] Past Encounters 08/31/2021 Dyspnea; Hyperlipidemia; Adult Health Examination; Seasonal Allergic Rhinitis; Vitamin D Deficiency; Urinary Symptoms; Impacted [facility]: [address] [place] [address], Ph. 07/30/2021 Patient New to Provider; Immunization Advised; Nicotine Dependence; Cough; Acute Urinary Tract Infection [facility]: [address] [place] [address], Ph. 12/17/2020 Administration of SARS-CoV-2 Antigen Vaccine Jerald Mccray MD: [address] [place] [address], Ph. 11/17/2020 Schizoaffective Disorder Christianne Deshpande MD: [address] [place] [address], Ph. 10/06/2020 Dysuria; Acute Urinary Tract Infection; Type II Diabetes Mellitus Uncontrolled; Nicotine Dependence; Needs Influenza Immunization; Generalized Anxiety Disorder Ting Williamson [facility]: [address] [place] [address], Ph. Social History Tobacco Smoking Status Heavy [...] Surgeries None recorded. Imaging None recorded. Vitals 08/31/2021 01:00PM ESTABLISHED [id number] Height Weight BMI Blood Pressure 65 in 138 lbs 2 oz 23 kg/m2 138/94 mm[Hg] 07/30/2021 11:00AM ESTABLISHED [id number] Height Weight BMI Blood Pressure 65 in 143 lbs 23.8 kg/m2 122/82 mm[Hg] 11/17/2020 01:00PM TELEPSYCH 30 Height Weight BMI 65 in 143 lbs 23.8 kg/m2 10/06/2020 09:20AM ESTABLISHED [id number] Height Weight BMI Blood Pressure 65 in [...]
--- OUTSIDE RECORDS SUMMARY | 2021-10-04 19:20 | CCD ---
Author Author [facility] Organization [facility] Address Unknown Phone Unavailable Care Team Providers Care Film And Video Editor Name Role Phone Jh Mccray MD Unavailable Unavailable Jh Mccray MD Unavailable Unavailable Jh Mccray MD Unavailable Unavailable Jh Mccray MD Unavailable Unavailable Jh Mccray MD Unavailable Unavailable Jh Mccray MD Unavailable Unavailable Jh Mccray MD Unavailable Unavailable Jh Mccray MD Unavailable Unavailable Jh Mccray MD Unavailable Unavailable Jh Mccray MD Unavailable Unavailable Jh Mccray MD Unavailable Unavailable Jh Mccray MD Unavailable Unavailable Jh Mccray MD Unavailable Unavailable Jh Mccray MD Unavailable Unavailable Jh Mccray MD Unavailable Unavailable Jh Mccray MD Unavailable Unavailable Jh Mccray MD Unavailable Unavailable Jh Mccray MD Unavailable Unavailable Jh Mccray MD Unavailable Unavailable Jh Mccray MD Unavailable Unavailable Jh Mccray MD Unavailable Unavailable Jh Mccray MD Unavailable Unavailable Jh Mccray MD Unavailable Unavailable Jh Mccray MD Unavailable Unavailable Jh Mccray MD Unavailable Unavailable Jh Mccray MD Unavailable Unavailable Jh Mccray MD Unavailable Unavailable Jh Mccray MD Unavailable Unavailable Jh Mccray MD Unavailable Unavailable Jh Mccray MD Unavailable Unavailable Jh Mccray MD Unavailable Unavailable Jh Mccray MD Unavailable Unavailable Jh Mccray MD Unavailable Unavailable Jh Mccray MD Unavailable Unavailable Jh Mccray MD Unavailable Unavailable Jh Mccray MD Unavailable Unavailable Jh Mccray MD Unavailable Unavailable Jh Mccray MD Unavailable Unavailable Jh Mccray MD Unavailable Unavailable Jh Mccray MD Unavailable Unavailable Jh Mccray MD Unavailable Unavailable Jh Mccray MD Unavailable Unavailable Jh Mccray MD Unavailable Unavailable Jh Mccray MD Unavailable Unavailable Jh Mccray MD Unavailable Unavailable Jh Mccray MD Unavailable Unavailable Jh Mccray MD Unavailable Unavailable Jh Mccray MD Unavailable Unavailable Jh Mccray MD Unavailable Unavailable Jh Mccray MD Unavailable Unavailable Jh Mccray MD Unavailable Unavailable Jh Mccray MD Unavailable Unavailable Jh Mccray MD Unavailable Unavailable Jh Mccray MD Unavailable Unavailable Jh Mccray MD Unavailable Unavailable Jh Mccray MD Unavailable Unavailable Jh Mccray MD Unavailable Unavailable Jh Mccray MD Unavailable Unavailable Jh Mccray MD Unavailable Unavailable Jh Mccray MD Unavailable Unavailable Jh Mccray MD Unavailable Unavailable Jh Mccray MD Unavailable Unavailable Jh Mccray MD Unavailable Unavailable Jh Mccray MD Unavailable Unavailable Jh Mccray MD Unavailable Unavailable Jh Mccray MD Unavailable Unavailable Jh Mccray MD Unavailable Unavailable Jh Mccray MD Unavailable Unavailable Jh Mccray MD Unavailable Unavailable Jh Mccray MD Unavailable Unavailable Jh Mccray MD Unavailable Unavailable Jh Mccray MD Unavailable Unavailable Jh Mccray MD Unavailable Unavailable Jh Mccray MD Unavailable Unavailable Jh Mccray MD Unavailable Unavailable Jh Mccray MD Unavailable Unavailable Jh Mccray MD Unavailable Unavailable Jh Mccray MD Unavailable Unavailable Jh Mccray MD Unavailable Unavailable Jh Mccray MD Unavailable Unavailable Jh Mccray MD Unavailable Unavailable Jh Mccray MD Unavailable Unavailable Jh Mccray MD Unavailable Unavailable Jh Mccray MD Unavailable Unavailable Jh Mccray MD Unavailable Unavailable Jh Mccray MD Unavailable Unavailable Jh Mccray MD Unavailable Unavailable Jh Mccray MD Unavailable Unavailable Jh Mccray MD Unavailable Unavailable Jh Mccray MD Unavailable Unavailable Jh Mccray MD Unavailable Unavailable Jh Mccray MD Unavailable Unavailable Jh Mccray MD Unavailable Unavailable Jh Mccray MD Unavailable Unavailable Noragong, Nya Unavailable Unavailable Noragong, Nya Unavailable Unavailable Noragong, Nya Unavailable Unavailable Noragong, Nya Unavailable Unavailable Noragong, Nya Unavailable Unavailable Noragong, Nya Unavailable Unavailable Noragong, Nya Unavailable Unavailable Clay, Ting LITHOGRAPHIC GENERAL WORKER LITHOGRAPHIC GENERAL WORKER Unavailable Unavailable Lala Deshpande MD Unavailable Unavailable Lala Deshpande MD Unavailable Unavailable Lala Deshpande MD Unavailable Unavailable Lala Deshpande MD Unavailable Unavailable Lala Deshpande MD Unavailable Unavailable Lala Deshpande MD Unavailable Unavailable Lala Deshpande MD Unavailable Unavailable Lala Deshpande MD Unavailable Unavailable Lala Deshpande MD Unavailable Unavailable Cimarron, A Ting LITHOGRAPHIC GENERAL WORKER Unavailable Unavailable Cimarron, A Ting LITHOGRAPHIC GENERAL WORKER Unavailable Unavailable Cimarron, A Ting LITHOGRAPHIC GENERAL WORKER Unavailable Unavailable Cimarron, A Ting LITHOGRAPHIC GENERAL WORKER Unavailable Unavailable Cimarron, A Ting LITHOGRAPHIC GENERAL WORKER Unavailable Unavailable Cimarron, A Ting LITHOGRAPHIC GENERAL WORKER Unavailable Unavailable Cimarron, A Ting LITHOGRAPHIC GENERAL WORKER Unavailable Unavailable Cimarron, A Ting LITHOGRAPHIC GENERAL WORKER Unavailable Unavailable Cimarron, A Ting LITHOGRAPHIC GENERAL WORKER Unavailable Unavailable Cimarron, A Ting LITHOGRAPHIC GENERAL WORKER Unavailable Unavailable Cimarron, A Ting LITHOGRAPHIC GENERAL WORKER Unavailable Unavailable Cimarron, A Ting LITHOGRAPHIC GENERAL WORKER Unavailable Unavailable Cimarron, A Ting LITHOGRAPHIC GENERAL WORKER Unavailable Unavailable Cimarron, A Ting LITHOGRAPHIC GENERAL WORKER Unavailable Unavailable Cimarron, A Ting LITHOGRAPHIC GENERAL WORKER Unavailable Unavailable Cimarron, A Ting LITHOGRAPHIC GENERAL WORKER Unavailable Unavailable Cimarron, A Ting LITHOGRAPHIC GENERAL WORKER Unavailable Unavailable Cimarron, A Ting LITHOGRAPHIC GENERAL WORKER Unavailable Unavailable Cimarron, A Ting LITHOGRAPHIC GENERAL WORKER Unavailable Unavailable Cimarron, A Ting LITHOGRAPHIC GENERAL WORKER Unavailable Unavailable Cimarron, A Ting LITHOGRAPHIC GENERAL WORKER Unavailable Unavailable Cimarron, A Ting LITHOGRAPHIC GENERAL WORKER Unavailable Unavailable Cimarron, A Tnig LITHOGRAPHIC GENERAL WORKER Unavailable Unavailable Cimarron, A Ting LITHOGRAPHIC GENERAL WORKER Unavailable Unavailable Cimarron, A Ting LITHOGRAPHIC GENERAL WORKER Unavailable Unavailable Cimarron, A Ting LITHOGRAPHIC GENERAL WORKER Unavailable Unavailable Cimarron, A Ting LITHOGRAPHIC GENERAL WORKER Unavailable Unavailable Cimarron, A Ting LITHOGRAPHIC GENERAL WORKER Unavailable Unavailable Cimarron, A Ting LITHOGRAPHIC GENERAL WORKER Unavailable Unavailable Cimarron, A Ting LITHOGRAPHIC GENERAL WORKER Unavailable Unavailable Hermilo Williamson LITHOGRAPHIC GENERAL WORKER Unavailable Unavailable Re-disclosure Warning The records that you are about to access may contain information from federally-assisted alcohol or drug abuse programs. If such information is present, then the following federally mandated warning applies: This information has been disclosed to you from records protected by federal confidentiality rules (42 CFR part 2). The federal rules prohibit you from making any further disclosure of this information unless further disclosure is expressly permitted by the written consent of the person to whom it pertains or as otherwise permitted by 42 CFR part 2. A general authorization for the release of medical or other information is NOT sufficient for this purpose. The Federal rules restrict any use of the information to criminally investigate or prosecute any alcohol or drug abuse patient.The records that you are about to access may contain highly sensitive health information, the redisclosure of which is protected by Article 27-F of the [facility] Public Health law. If you continue you may have access to information: Regarding HIV / AIDS; Provided by facilities licensed or operated by the [facility] Office of Mental Health; or Provided by the [facility] Office for People With Developmental Disabilities. If such information is present, then the following [facility] mandated warning applies: This information has been disclosed to you from confidential records which are protected by state law. State law prohibits you from making any further disclosure of this information without the specific written consent of the person to whom it pertains, or as otherwise permitted by law. Any unauthorized further disclosure in violation of state law may result in a fine or residential sentence or both. A general authorization for the release of medical or other information is NOT sufficient authorization for further disc losure. Allergies and Adverse Reactions Type Description Substance Reaction Status Data Source(s ) Allergy to substance Allergy to substance Allergy to substance [facility] ([facility]) Allergy to substance Allergy to substance Allergy to substance [facility] ([facility]) Allergy to substance Allergy to substance Allergy to substance [facility] ([facility]) Encounters Encounter Providers Location Date Indications Data Source(s ) Jerald Mccray MD: [address] [place] [phone], Ph. Attender: Jerald Mccray MD [facility] Medical 09/03/2021 12:00:00 AM EST [facility] ([facility]) Jerald Mccray MD: [address] [place] [address], Ph. Attender: Jerald Mccray MD [facility] Medical 09/03/2021 12:00:00 AM EST LEAH ([facility]) EMILIANO ClemonsP: [address] [place] [address], Ph. Attender: Nya Razo [facility] Medical 08/31/2021 12:00:00 AM EST [facility] ([facility]) MILAGRO Clemons: [address] [place] [address], Ph. Attender: Nya Razo [facility] Medical 08/31/2021 12:00:00 AM EST LE[facility] ([facility]) MILAGRO Clemons: [address] [place] [address], Ph. Attender: Nya Razo [facility] Medical 07/30/2021 12:00:00 AM EDT LEAH ([facility]) MILAGRO Clemons: [address] [place] [address], Ph. Attender: Nya Razo [facility] Medical 07/30/2021 12:00:00 AM EDT LE[facility] ([facility]) MILAGRO Clemons: [address] [place] [address], Ph. Attender: Nya Razo [facility] Medical 07/30/2021 12:00:00 AM EDT [facility] ([facility]) Jerald Mccray MD: [address] [place] [address], Ph. Attender: Jerald Mccray MD [facility] Medical 12/17/2020 12:00:00 AM EST LEAH ([facility]) Jerald Mccray MD: [address] [place] [address], Ph. Attender: Jerald Mccray MD [facility] Medical 12/17/2020 12:00:00 AM EST LE[facility] ([facility]) Jerald Mccray MD: [address] [place] [address], Ph. Attender: Jerald Mccray MD [facility] Medical 12/17/2020 12:00:00 AM EST LE[facility] ([facility]) Jerald Mccray MD: [address] [place] [address], Ph. Attender: Jerald Mccray MD [facility] Medical 12/17/2020 12:00:00 AM EST [facility] ([facility]) Christianne Deshpande MD: [address] [place] [address], Ph. Attender: Christianne Deshpande MD [facility] Medical 11/17/2020 12:00:00 AM EST LE[facility] ([facility]) Christianne Deshpande MD: [address] [place] [address], Ph. Attender: Christianne Deshpande MD [facility] Medical 11/17/2020 12:00:00 AM EST LE[facility] ([facility]) Christianne Deshpande MD: [address] [place] [address], Ph. Attender: Christianne Deshpande MD [facility] Medical 11/17/2020 12:00:00 AM EST LE[facility] ([facility]) Christianne Deshpande MD: [address], [place] [address], Ph. Attender: Christianne Deshpande MD [facility] Medical 11/17/2020 12:00:00 AM EST [facility] ([facility]) Christianne Deshpande MD: [address], [place] [address], Ph. Attender: Christianne Deshpande MD [facility] Medical 11/17/2020 12:00:00 AM EST [facility] ([facility]) [facility]: [address], [place] [address], Ph. Attender: Ting Williamson [facility] Medical 10/06/2020 12:00:00 AM EST [facility] ([facility]) RADHA Patel: [address], [place] [address], Ph. Attender: Ting Williamson [facility] Medical 10/06/2020 12:00:00 AM EST LE[facility] ([facility]) RADHA Patel: [address], [place] [address], Ph. Attender: Ting Williamson [facility] Medical 10/06/2020 12:00:00 AM EST [facility] ([facility]) RADHA Patel: [address], [place] [address], Ph. Attender: Ting Williamson [facility] Medical 10/06/2020 12:00:00 AM EST LEAH ([facility]) RADHA PatelBC: [address], [place] [address], Ph. [facility]: [facility] 10/06/2020 12:00:00 AM EST [facility] ([facility]) [facility] [address], [place] [address], Ph. Attender: [facility]ing [facility] 10/06/2020 12:00:00 AM EST LEAH ([facility]) Outpatient Attender: MILAGRO HUMPHREY 08/15/2020 01:25:00 P M EDT [facility] Immunizations Vaccine Date Status Description Data Source(s) COVID-19, mRNA, LNP-S, PF, 100 mcg/0.5 mL dose (Modern a) 09/03/2021 12:53:58 PM EST completed .5 mL [facility] ([facility]) New in 2011. IIV4 09/03/2021 11:09:53 AM EST completed 09/03/20 21 [facility] ([facility]) COVID-19 VACCINE Moderna 09/03/2021 12:00:00 AM EST completed [facility] Vaccine Series Complete: YESThis Data wa s Submitted to [facility] Via [facility]. COVID-19, mRNA, LNP-S, PF, 100 mcg/0.5 mL dose (Modern a) 12/17/2020 04:53:27 PM EST completed .5 mL [facility] ([facility]) COVID-19, mRNA, LNP-S, PF, 100 mcg/0.5 mL dose 12/17/2020 04 :53:27 PM EST completed .5 mL [facility] ([facility]) COVID-19, mRNA, LNP-S, PF, 100 mcg/0.5 mL dose 12/17/2020 04 :53:27 PM EST completed .5 mL LE[facility] ([facility]) COVID-19, mRNA, LNP-S, PF, 100 mcg/0.5 mL dose 12/17/2020 04 :53:27 PM EST completed .5 mL LEAH ([facility]) COVID-19 VACCINE Moderna 12/17/2020 12:00:00 AM EST completed [facility] Vaccine Series Complete: NOThis Data was Submitted to [facility] Via [employer]. New in 2011. IIV4 10/06/2020 10:40:00 AM EST completed .5 mL [facility] ([facility]) New in 2011. IIV4 10/06/2020 10:40:00 AM EST completed .5 mL [facility] ([facility]) New in 2011. IIV4 10/06/2020 10:40:00 AM EST completed .5 mL [facility] ([facility]) New in 2011. IIV4 10/06/2020 10:40:00 AM EST completed .5 mL [facility] ([facility]) New in 2011. IIV4 10/06/2020 10:40:00 AM EST completed .5 mL [facility] ([facility]) New in 2011. IIV4 10/06/2020 10:40:00 AM EST completed .5 mL [facility] ([facility]) Medications Medication Brand Name Start Date Product Form Dose Route Admi nistrative Instructions Pharmacy Instructions Status Indications Reaction Description Data Source(s) Prevail Underwear USE THREE TIMES A DAY FOR INCONTINENCE [id number] 07/30/2021 12:00:00 AM EDT completed Preva il Underwear [facility] ([facility]) Prevail Underwear USE THREE TIMES A DAY FOR INCONTINENCE [id number] 07/30/2021 12:00:00 AM EDT completed Preva il Underwear [facility] ([facility]) Prevail Underwear USE THREE TIMES A DAY FOR INCONTINENCE [id number] 07/30/2021 12:00:00 AM EDT completed Preva il Underwear LEAH ([facility]) ziprasidone 60 MG Oral Capsule ziprasido ne 60 mg capsule TAKE ONE CAPSULE BY MOUTH TWO TIMES A DAY DIRECTED ziprasidone 60 mg capsule TAKE ONE CAPSU LE BY MOUTH TWO TIMES A DAY DIRECTED comp leted ziprasidone 60 MG Oral Capsule [facility] ([facility]) Mirtazapine 15 MG Oral Tablet mirtazapin e 15 mg tablet TAKE ONE TABLET BY MOUTH AT BEDTIME mirtazapine 15 mg tablet TAKE ONE TABLET BY MOUTH AT BEDTIME completed mirtazapine 15 MG Oral Ta blet LEAH ([facility]) Prednisone 20 MG Oral Tablet prednisone 20 mg tablet TAKE ONE TABLET BY MOUTH EVERY DAY FOR 5 DAYS prednisone 20 mg tablet TAKE ONE TABLET BY MOUTH EVERY DAY FOR 5 DAYS completed prednisone 20 MG Oral Tablet [facility] ([facility]) Azithromycin 250 MG Oral Tablet azithrom ycin 250 mg tablet TAKE TWO TABLETS BY MOUTH AT ONCE ON THE FIRST DAY THEN TAKE ONE DAILY THEREAFTER azithromycin 250 mg tablet TAKE TWO TABLETS BY MOUTH AT ONCE ON THE FIRST DAY THEN TAKE ONE DAILY THEREAFTER completed azithromyci n 250 MG Oral Tablet [facility] ([facility]) Azithromycin 250 MG Oral Tablet azithrom ycin 250 mg tablet TAKE TWO TABLETS BY MOUTH AT ONCE ON THE FIRST DAY THEN TAKE ONE DAILY THEREAFTER azithromycin 250 mg tablet TAKE TWO TABLETS BY MOUTH AT ONCE ON THE FIRST DAY THEN TAKE ONE DAILY THEREAFTER completed azithromyci n 250 MG Oral Tablet [facility] ([facility]) Metformin hydrochloride 500 MG Oral Tabl et metformin 500 mg tablet TAKE ONE TABLET BY MOUTH EVERY DAY metformin 500 mg tablet TAKE ONE TABLET BY MOUTH EVERY DAY completed metformin hydroc hloride 500 MG Oral Tablet LEAH ([facility]) Metformin hydrochloride 500 MG Oral Tabl et metformin 500 mg tablet TAKE ONE TABLET BY MOUTH EVERY DAY metformin 500 mg tablet TAKE ONE TABLET BY MOUTH EVERY DAY completed metformin hydroc hloride 500 MG Oral Tablet [facility] ([facility]) Azithromycin 250 MG Oral Tablet azithrom ycin 250 mg tablet TAKE TWO TABLETS BY MOUTH AT ONCE ON THE FIRST DAY THEN TAKE ONE DAILY THEREAFTER azithromycin 250 mg tablet TAKE TWO TABLETS BY MOUTH AT ONCE ON THE FIRST DAY THEN TAKE ONE DAILY THEREAFTER completed azithromyci n 250 MG Oral Tablet LEAH ([facility]) Metformin hydrochloride 500 MG Oral Tabl et metformin 500 mg tablet TAKE ONE TABLET BY MOUTH EVERY DAY metformin 500 mg tablet TAKE ONE TABLET BY MOUTH EVERY DAY completed metformin hydroc hloride 500 MG Oral Tablet [facility] ([facility]) ziprasidone 60 MG Oral Capsule ziprasido ne 60 mg capsule TAKE ONE CAPSULE BY MOUTH TWO TIMES A DAY DIRECTED ziprasidone 60 mg capsule TAKE ONE CAPSU LE BY MOUTH TWO TIMES A DAY DIRECTED comp leted ziprasidone 60 MG Oral Capsule [facility] ([facility]) Ciprofloxacin 250 MG Oral Tablet ciprofl oxacin 250 mg tablet TAKE ONE TABLET BY MOUTH TWICE A DAY DIRECTED FOR 10 DAYS ciprofloxacin 250 mg tablet TAKE ONE TABLET BY MOUTH TWICE A DAY DIRECTED FOR 10 DAYS completed ciprofloxacin 250 MG Oral Tablet LEAH ([facility]) Azithromycin 250 MG Oral Tablet azithrom ycin 250 mg tablet TAKE TWO TABLETS BY MOUTH AT ONCE ON THE FIRST DAY THEN TAKE ONE DAILY THEREAFTER azithromycin 250 mg tablet TAKE TWO TABLETS BY MOUTH AT ONCE ON THE FIRST DAY THEN TAKE ONE DAILY THEREAFTER completed azithromyci n 250 MG Oral Tablet [facility] ([facility]) Metformin hydrochloride 500 MG Oral Tabl et metformin 500 mg tablet TAKE ONE TABLET BY MOUTH EVERY DAY metformin 500 mg tablet TAKE ONE TABLET BY MOUTH EVERY DAY completed metformin hydroc hloride 500 MG Oral Tablet LE[facility] ([facility]) Mirtazapine 15 MG Oral Tablet mirtazapin e 15 mg tablet TAKE ONE TABLET BY MOUTH AT BEDTIME mirtazapine 15 mg tablet TAKE ONE TABLET BY MOUTH AT BEDTIME completed mirtazapine 15 MG Oral Ta blet LEAH ([facility]) Metformin hydrochloride 500 MG Oral Tabl et metformin 500 mg tablet TAKE ONE TABLET BY MOUTH EVERY DAY metformin 500 mg tablet TAKE ONE TABLET BY MOUTH EVERY DAY completed metformin hydroc hloride 500 MG Oral Tablet [facility] ([facility]) Prednisone 20 MG Oral Tablet prednisone 20 mg tablet TAKE ONE TABLET BY MOUTH EVERY DAY FOR 5 DAYS prednisone 20 mg tablet TAKE ONE TABLET BY MOUTH EVERY DAY FOR 5 DAYS completed prednisone 20 MG Oral Tablet LE[facility] ([facility]) Mirtazapine 15 MG Oral Tablet mirtazapin e 15 mg tablet TAKE ONE TABLET BY MOUTH AT BEDTIME mirtazapine 15 mg tablet TAKE ONE TABLET BY MOUTH AT BEDTIME completed mirtazapine 15 MG Oral Ta blet LEAH ([facility]) Sulfamethoxazole 800 MG / Trimethoprim 1 60 MG Oral Tablet sulfamethoxazole 800 mg-trimethoprim 160 mg tablet TAKE ONE TABLET BY MOUTH EVERY 12 HOURS sulfamethoxazole 800 mg-trimethoprim 160 mg tablet TAKE ONE TABLET BY MOUTH EVERY 12 HOURS completed sulfamethoxazole 800 MG / trimethoprim 160 MG Oral Tablet [facility] ([facility]) Sulfamethoxazole 800 MG / Trimethoprim 1 60 MG Oral Tablet sulfamethoxazole 800 mg-trimethoprim 160 mg tablet TAKE ONE TABLET BY MOUTH EVERY 12 HOURS sulfamethoxazole 800 mg-trimethoprim 160 mg tablet TAKE ONE TABLET BY MOUTH EVERY 12 HOURS completed sulfamethoxazole 800 MG / trimethoprim 160 MG Oral Tablet [facility] ([facility]) Azithromycin 250 MG Oral Tablet azithrom ycin 250 mg tablet TAKE TWO TABLETS BY MOUTH AT ONCE ON THE FIRST DAY THEN TAKE ONE DAILY THEREAFTER azithromycin 250 mg tablet TAKE TWO TABLETS BY MOUTH AT ONCE ON THE FIRST DAY THEN TAKE ONE DAILY THEREAFTER completed azithromyci n 250 MG Oral Tablet [facility] ([facility]) Ciprofloxacin 250 MG Oral Tablet ciprofl oxacin 250 mg tablet TAKE ONE TABLET BY MOUTH TWICE A DAY DIRECTED FOR 10 DAYS ciprofloxacin 250 mg tablet TAKE ONE TABLET BY MOUTH TWICE A DAY DIRECTED FOR 10 DAYS completed ciprofloxacin 250 MG Oral Tablet [facility] ([facility]) Prednisone 20 MG Oral Tablet prednisone 20 mg tablet TAKE ONE TABLET BY MOUTH EVERY DAY FOR 5 DAYS prednisone 20 mg tablet TAKE ONE TABLET BY MOUTH EVERY DAY FOR 5 DAYS completed prednisone 20 MG Oral Tablet [facility] ([facility]) ziprasidone 60 MG Oral Capsule ziprasido ne 60 mg capsule TAKE ONE CAPSULE BY MOUTH TWO TIMES A DAY DIRECTED ziprasidone 60 mg capsule TAKE ONE CAPSU LE BY MOUTH TWO TIMES A DAY DIRECTED comp leted ziprasidone 60 MG Oral Capsule [facility] ([facility]) Ciprofloxacin 250 MG Oral Tablet ciprofl oxacin 250 mg tablet TAKE ONE TABLET BY MOUTH TWICE A DAY DIRECTED FOR 10 DAYS ciprofloxacin 250 mg tablet TAKE ONE TABLET BY MOUTH TWICE A DAY DIRECTED FOR 10 DAYS completed ciprofloxacin 250 MG Oral Tablet LE[facility] ([facility]) Metformin hydrochloride 500 MG Oral Tabl et metformin 500 mg tablet TAKE ONE TABLET BY MOUTH EVERY DAY metformin 500 mg tablet TAKE ONE TABLET BY MOUTH EVERY DAY completed metformin hydroc hloride 500 MG Oral Tablet [facility] [facility] Azithromycin 250 MG Oral Tablet azithrom ycin 250 mg tablet TAKE TWO TABLETS BY MOUTH AT ONCE ON THE FIRST DAY THEN TAKE ONE DAILY THEREAFTER azithromycin 250 mg tablet TAKE TWO TABLETS BY MOUTH AT ONCE ON THE FIRST DAY THEN TAKE ONE DAILY THEREAFTER completed azithromyci n 250 MG Oral Tablet LEAH ([facility]) Insurance Providers Payer name Policy type / Coverage type Policy ID Covered democrat ID Covered democrat's relationship to medina Policy [place] Plan Information [id number] A MEDICARE [id number] SP [id number] A Medicare P [id number] S [id number] A Medicaid S [id number] S [id number] Medicaid S [id number] S [id number] Medicaid S [id number] S [id number] Medicare Wrap S [id number] S [id number] Unitedhealthcare Secure Horizons P [id number] S [id number] Medicare O [id number] S [id number] A MEDICARE COMPLETE [id number] SP [id number] Unitedhealthcare [employer] P [id number] S [id number] Medicaid S [id number] S [id number] [employer] P [id number] S [id number] Medicaid S [id number] S [id number] [employer] P [id number] S [id number] Medicaid S [id number] S [id number] Medicaid S [id number] S [id number] A Medicare P [id number] S [id number] A Medicare Wrap O [id number] S [id number] Unitedhealthcare [employer] P [id number] S [id number] Unitedhealthcare [employer] P [id number] S [id number] Medicaid S [id number] S [id number] Unitedhealthcare [employer]iz[employer] P [id number] S [id number] Medicaid S [id number] S [id number] [facility] [id number] [id number] SP [id number] MEDICAID [id number] SP [id number] MEDICARE COMPLETE [id number] SP [id number] SELF PAY UNAVAILABLE SP UNAVAILA BLE EMEDNY [id number] SP [id number] United[employer]care [employer]izons P [id number] S [id number] Medicare Wrap O [id number] S [id number] [facility] [id number] Problems, Conditions, and Diagnoses Code Display Name Description Problem Type Effective Dates Data Source(s) 50362444 Urinary tract infectious disease Urinary Tract I nfectious Disease Problem 07/30/2021 12:00:00 AM EDT LEAH ([facility]) [id number] Urinary tract infectious disease Urinary Tract I nfectious Disease Problem 07/30/2021 12:00:00 AM EDT LEAH ([facility]) [id number] Type II diabetes mellitus uncontrolled T ype II Diabetes Mellitus Uncontrolled Problem 10/06/2020 12:00:00 AM EST LEAH ([facility]) [id number] Type II diabetes mellitus uncontrolled T ype II Diabetes Mellitus Uncontrolled Problem 10/06/2020 12:00:00 AM EST LEAH ([facility]) [id number] Type II diabetes mellitus uncontrolled T ype II Diabetes Mellitus Uncontrolled Problem 10/06/2020 12:00:00 AM EST LEAH ([facility]) [id number] Type II diabetes mellitus uncontrolled T ype II Diabetes Mellitus Uncontrolled Problem 10/06/2020 12:00:00 AM EST LEAH ([facility]) [id number] Type II diabetes mellitus uncontrolled T ype II Diabetes Mellitus Uncontrolled Problem 10/06/2020 12:00:00 AM EST LEAH ([facility]) [id number] Type II diabetes mellitus uncontrolled T ype II Diabetes Mellitus Uncontrolled Problem 10/06/2020 12:00:00 AM EST LEAH ([facility]) [id number] Severe recurrent major depression withou t psychotic features Severe Recurrent Major Depression without Psychotic Features Problem 08/14/2020 12:00:00 AM EDT LEAH ([facility]) [id number] Severe recurrent major depression withou t psychotic features Severe Recurrent Major Depression without Psychotic Features Problem 08/14/2020 12:00:00 AM EDT LEAH ([facility]) [id number] Severe recurrent major depression withou t psychotic features Severe Recurrent Major Depression without Psychotic Features Problem 08/14/2020 12:00:00 AM EDT LEAH ([facility]) [id number] Severe recurrent major depression withou t psychotic features Severe Recurrent Major Depression without Psychotic Features Problem 08/14/2020 12:00:00 AM EDT LEAH ([facility]) [id number] Severe recurrent major depression withou t psychotic features Severe Recurrent Major Depression without Psychotic Features Problem 08/14/2020 12:00:00 AM EDT LEAH ([facility]) [id number] Severe recurrent major depression withou t psychotic features Severe Recurrent Major Depression without Psychotic Features Problem 08/14/2020 12:00:00 AM EDT LEAH ([facility]) [id number] Clinical finding Clinical Finding Problem 08/07/2020 05 :29:08 PM EDT LEAH ([facility]) [id number] Hypertensive disorder Hypertensive Disorder Problem 08/07/2020 05:29:08 PM EDT LEAH ([facility]) [id number] Depressive disorder Depressive Disorder Problem 1 05:29:08 PM EDT LEAH ([facility]) 55324969 Hyperlipidemia Hyperlipidemia Problem 08/07/2020 05:29: 08 PM EDT LEAH ([facility]) [id number] Finding of esophagus Finding of Esophagus Problem 08/07/2020 05:29:08 PM EDT LEAH ([facility]) [id number] Clinical finding Clinical Finding Problem 08/07/2020 05 :29:08 PM EDT LEAH ([facility]) 37356352 Hypertensive disorder Hypertensive Disorder Problem 08/07/2020 05:29:08 PM EDT LEAH ([facility]) 83309688 Depressive disorder Depressive Disorder Problem 1 05:29:08 PM EDT LEAH ([facility]) 24613406 Hyperlipidemia Hyperlipidemia Problem 08/07/2020 05:29: 08 PM EDT LEAH ([facility]) [id number] Finding of esophagus Finding of Esophagus Problem 08/07/2020 05:29:08 PM EDT LEAH ([facility]) [id number] Clinical finding Clinical Finding Problem 08/07/2020 05 :29:08 PM EDT LEAH ([facility]) 94086816 Hypertensive disorder Hypertensive Disorder Problem 08/07/2020 05:29:08 PM EDT LEAH ([facility]) 48486839 Depressive disorder Depressive Disorder Problem 1 05:29:08 PM EDT LEAH ([facility]) 64639846 Hyperlipidemia Hyperlipidemia Problem 08/07/2020 05:29: 08 PM EDT LEAH ([facility]) [id number] Finding of esophagus Finding of Esophagus Problem 08/07/2020 05:29:08 PM EDT LEAH ([facility]) [id number] Clinical finding Clinical Finding Problem 08/07/2020 05 :29:08 PM EDT LEAH ([facility]) [id number] Hypertensive disorder Hypertensive Disorder Problem 08/07/2020 05:29:08 PM EDT LEAH ([facility]) 30182583 Depressive disorder Depressive Disorder Problem 1 05:29:08 PM EDT LEAH ([facility]) 70201594 Hyperlipidemia Hyperlipidemia Problem 08/07/2020 05:29: 08 PM EDT LEAH ([facility]) 587318909 Finding of esophagus Finding of Esophagus Problem 08/07/2020 05:29:08 PM EDT LEAH ([facility]) [id number] Clinical finding Clinical Finding Problem 08/07/2020 05 :29:08 PM EDT LEAH ([facility]) 50010481 Hypertensive disorder Hypertensive Disorder Problem 08/07/2020 05:29:08 PM EDT LEAH ([facility]) 55367097 Depressive disorder Depressive Disorder Problem 1 05:29:08 PM EDT LEAH ([facility]) 63777543 Hyperlipidemia Hyperlipidemia Problem 08/07/2020 05:29: 08 PM EDT LEAH ([facility]) 595162042 Clinical finding Clinical Finding Problem 08/07/2020 05 :29:08 PM EDT LEAH ([facility]) 32144141 Hypertensive disorder Hypertensive Disorder Problem 08/07/2020 05:29:08 PM EDT LEAH ([facility]) [id number] Depressive disorder Depressive Disorder Problem 1 05:29:08 PM EDT LEAH ([facility]) 80862478 Hyperlipidemia Hyperlipidemia Problem 08/07/2020 05:29: 08 PM EDT LEAH ([facility]) 803330998 Finding of menstrual bleeding Finding of Menstrual Ble eding Problem 09/10/2019 12:00:00 AM EST - 08/31/2021 12:00:00 AM EST LEAH ([facility]) 835410310 Finding of menstrual bleeding Finding of Menstrual Ble eding Problem 09/10/2019 12:00:00 AM EST - 08/31/2021 12:00:00 AM EST LEAH ([facility]) [id number] Clinical finding Clinical Finding Problem 018 12:00:00 AM EDT - 08/31/2021 12:00:00 AM EST LEAH ([facility]) [id number] Clinical finding Clinical Finding Problem 018 12:00:00 AM EDT - 08/31/2021 12:00:00 AM EST LEAH ([facility]) [id number] Clinical finding Clinical Finding Problem 014 12:00:00 AM EDT - 08/31/2021 12:00:00 AM EST LEAH ([facility]) [id number] Clinical finding Clinical Finding Problem 014 12:00:00 AM EDT - 08/31/2021 12:00:00 AM EST LEAH ([facility]) [id number] Finding of esophagus Finding of Esophagus Problem 08/31/2021 12:00:00 AM EST LEAH ([facility]) [id number] Finding of esophagus Finding of Esophagus Problem 08/31/2021 12:00:00 AM EST LEAH ([facility]) Surgeries/Procedures No Information Results ID Date Data Source [id number] 07/30/2021 12:49:00 PM EDT PARKER ([facility]) Name Value Range Interpretation Code Description Data Adri rce(s) Supporting Document(s) Bacteria identified in Urine by Culture see note Culture, Urine, Routine [facility]ARK[facility] ([facility]) ID Date Data Source [id number] 07/30/2021 12:49:00 PM EDT [facility] ([facility]) Name Value Range Interpretation Code Description Data Adri rce(s) Supporting Document(s) Chlamydia trachomatis rRNA [Presence] in Unspecified specimen by Probe and target amplification method tnp Chla mydia Trachomatis RNA Tma, Urogenital (Refl) [facility]) ID Date Data Source [id number] 07/30/2021 12:49:00 PM EDT [facility]) Name Value Range Interpretation Code Description Data Adri rce(s) Supporting Document(s) Hemoglobin A1c/Hemoglobin.total in Blood 5.8 %_of_total_HGB <5.7 Above high normal Hemoglobin a1C [facility]) ID Date Data Source [id number] 07/30/2021 12:49:00 PM EDT [facility]) Name Value Range Interpretation Code Description Data Adri rce(s) Supporting Document(s) Thyrotropin [Units/volume] in Serum or Plasma 1.29 mIU/L 0.40-4.5 0 TSH W/reflex to FT4 [facility]) ID Date Data Source [id number] 07/30/2021 12:49:00 PM EDT [facility]) Name Value Range Interpretation Code Description Data Adri rce(s) Supporting Document(s) Leukocytes [#/volume] in Blood by Automated count 8.5 thousand/uL 3 .8-10.8 White Blood Cell Count [facility] ([facility]) Hemoglobin [Mass/volume] in Blood 14.6 g/dL 13.2-17.1 He moglobin LEAH ([facility]) Erythrocytes [#/volume] in Blood by Automated count 4.63 million/uL 4.20-5.80 Red Blood Cell Count [facility] ([facility]) Hematocrit [Volume Fraction] of Blood by Automated count 41.9 % 38.5-50.0 Hematocrit [facility] ([facility]) Erythrocyte mean corpuscular volume [Entitic volume] by Auto mated count 90.5 fL 80.0-100.0 Mcv LEAH ([facility]) Erythrocyte mean corpuscular hemoglobin [Entitic mass] by Automated count 31.5 pg 27.0-33.0 Mch LEAH ([facility]) Erythrocyte distribution width [Ratio] by Automated count 12.4 % 11.0-15.0 Rdw LEAH ([facility]) Erythrocyte mean corpuscular hemoglobin concentration [Mass/volume] by Automated count 34.8 g/dL 32.0-36.0 Mchc LEAH ([facility]) Platelets [#/volume] in Blood by Automated count 253 thousand/uL 14 0-400 Platelet Count LEAH ([facility]) Platelet mean volume [Entitic volume] in Blood by Eliezer 9.8 fL 7.5-12.5 Mpv LEAH ([facility]) Neutrophils [#/volume] in Blood by Automated count 6146 cells/uL 15 00-7800 Absolute Neutrophils LEAH ([facility]) Lymphocytes [#/volume] in Blood by Automated count 1479 cells/uL 85 0-3900 Absolute Lymphocytes LEAH ([facility]) Monocytes [#/volume] in Blood by Automated count 655 cells/uL 200-9 50 Absolute Monocytes LEAH ([facility]) Eosinophils [#/volume] in Blood by Automated count 162 cells/uL 15- 500 Absolute Eosinophils LEAH ([facility]) Neutrophils/100 leukocytes in Blood by Automated count 72.3 % 38-80 Neutrophils [facility] ([facility]) Basophils [#/volume] in Blood by Automated count 60 cells/uL 0-200 Absolute Basophils LEAH ([facility]) Monocytes/100 leukocytes in Blood by Automated count 7.7 % 0-13 Monocytes LEAH ([facility]) Lymphocytes/100 leukocytes in Blood by Automated count 17.4 % 15-49 Lymphocytes LEAH ([facility]) Eosinophils/100 leukocytes in Blood by Automated count 1.9 % 0-8 Eosinophils LE[facility] ([facility]) Basophils/100 leukocytes in Blood by Automated count 0.7 % 0-2 [facility] ID Date Data Source [id number] 07/30/2021 12:49:00 PM EDT PARKER ([facility]) Name Value Range Interpretation Code Description Data Adri rce(s) Supporting Document(s) Glucose [Mass/volume] in Serum or Plasma 103 mg/dL 65-99 Above high normal Glucose LEAH ([facility]) Creatinine [Mass/volume] in Serum or Plasma 0.95 mg/dL 0.70-1.18 Creatinine LEAH ([facility]) Urea nitrogen [Mass/volume] in Serum or Plasma 19 mg/dL 7-25 Urea Nitrogen (BUN) LEAH ([facility]) Glomerular filtration rate/1.73 sq M.pre dicted among blacks [Volume Rate/Area] in Serum, Plasma or Blood by Creatinine-based formula (CKD-EPI) 92 mL/min/1.73m2 > or = 60 eGFR LEAH ([facility]) Glomerular filtration rate/1.73 sq M.pre dicted among non-blacks [Volume Rate/Area] in Serum, Plasma or Blood by Creatinine-based formula (CKD-EPI) 80 mL/min/1.73m2 > or = 60 eGFR Non-afr. Icelandic LEAH ([facility]) Urea nitrogen/Creatinine [Mass Ratio] in Serum or Plasma not applic able 6-22 BUN/creatinine Ratio LEAH ([facility]) Sodium [Moles/volume] in Serum or Plasma 140 mmol/L 135-146 Sodium LEAH ([facility]) Potassium [Moles/volume] in Serum or Plasma 4.6 mmol/L 3.5-5.3 Potassium LEAH ([facility]) Chloride [Moles/volume] in Serum or Plasma 107 mmol/L 98-110 Chloride LEAH ([facility]) Carbon dioxide, total [Moles/volume] in Serum or Plasma 27 mmol/L 20-32 Carbon Dioxide LEAH ([facility]) Calcium [Mass/volume] in Serum or Plasma 9.2 mg/dL 8.6-10.3 Calcium [facility]) Protein [Mass/volume] in Serum or Plasma 6.7 g/dL 6.1-8.1 Protein, [facility] Globulin [Mass/volume] in Serum by calculation 2.4 g/dL_(calc) 1.9- 3.7 Globulin [facility]) Albumin [Mass/volume] in Serum or Plasma 4.3 g/dL 3.6-5.1 Albumin LEAH ([facility]) Albumin/Globulin [Mass Ratio] in Serum or Plasma 1.8 (calc) 1.0-2 .5 Albumin/globulin Ratio LEAH ([facility]) Bilirubin.total [Mass/volume] in Serum or Plasma 0.7 mg/dL 0.2-1 .2 Bilirubin, Total LEAH ([facility]) Alkaline phosphatase [Enzymatic activity/volume] in Serum or Plasma 72 U/L 35-144 Alkaline Phosphatase LEAH ([facility]) Aspartate aminotransferase [Enzymatic activity/volume] in Serum or Plasma 13 U/L 10-35 Ast LEAH ([facility]) Alanine aminotransferase [Enzymatic activity/volume] in Seru m or Plasma 10 U/L 9-46 Alt LEAH ([facility]) ID Date Data Source [id number] 07/30/2021 12:49:00 PM EDT PARKER ([facility]) Name Value Range Interpretation Code Description Data Adri rce(s) Supporting Document(s) Cholesterol [Mass/volume] in Serum or Plasma 155 mg/dL <200 Cholesterol, Total LEAH ([facility]) Cholesterol in HDL [Mass/volume] in Serum or Plasma 31 mg/dL > or = 40 Below low normal HDL Cholesterol LEAH ([facility]) Triglyceride [Mass/volume] in Serum or Plasma 120 mg/dL <150 Triglycerides LEAH ([facility]) Cholesterol.total/Cholesterol in HDL [Mass Ratio] in Serum o r Plasma 5.0 (calc) <5.0 Above high normal Chol/hdlc Ratio LEAH ([facility]) Cholesterol in LDL [Mass/volume] in Serum or Plasma by calculation 102 mg/dL_(calc) Above high normal LDL-cholesterol LEAH ([facility]) Cholesterol non HDL [Mass/volume] in Serum or Plasma 124 mg/dL_(rosa c) <130 Non HDL Cholesterol LEAH ([facility]) ID Date Data Source [id number] 07/30/2021 12:49:00 PM EDT [facility]) Name Value Range Interpretation Code Description Data Adri rce(s) Supporting Document(s) Bacteria identified in Urine by Culture see note Culture, Urine, Routine [facility]) ID Date Data Source [id number] 07/30/2021 12:49:00 PM EDT [facility]) Name Value Range Interpretation Code Description Data Adir rce(s) Supporting Document(s) Chlamydia trachomatis rRNA [Presence] in Unspecified specimen by Probe and target amplification method tnp Chla mydia Trachomatis RNA Tma, Urogenital (Refl) [facility]) ID Date Data Source [id number] 07/30/2021 12:49:00 PM EDT [facility]) Name Value Range Interpretation Code Description Data Adri rce(s) Supporting Document(s) Hemoglobin A1c/Hemoglobin.total in Blood 5.8 %_of_total_HGB <5.7 Above high normal Hemoglobin a1C [facility]) ID Date Data Source [id number] 07/30/2021 12:49:00 PM EDT [facility]) Name Value Range Interpretation Code Description Data Adri rce(s) Supporting Document(s) Thyrotropin [Units/volume] in Serum or Plasma 1.29 mIU/L 0.40-4.5 0 TSH W/reflex to FT4 [facility]) ID Date Data Source [id number] 07/30/2021 12:49:00 PM EDT [facility]) Name Value Range Interpretation Code Description Data Adri rce(s) Supporting Document(s) Erythrocytes [#/volume] in Blood by Automated count 4.63 million/uL 4.20-5.80 Red Blood Cell Count [facility]) Leukocytes [#/volume] in Blood by Automated count 8.5 thousand/uL 3 .8-10.8 White Blood Cell Count [facility] ([facility]) Hemoglobin [Mass/volume] in Blood 14.6 g/dL 13.2-17.1 He moglobin LEAH ([facility]) Erythrocyte mean corpuscular volume [Entitic volume] by Auto mated count 90.5 fL 80.0-100.0 Mcv LEAH ([facility]) Hematocrit [Volume Fraction] of Blood by Automated count 41.9 % 38.5-50.0 Hematocrit LE[facility] ([facility]) Erythrocyte mean corpuscular hemoglobin [Entitic mass] by Automated count 31.5 pg 27.0-33.0 Mch LE[facility] ([facility]) Erythrocyte mean corpuscular hemoglobin concentration [Mass/volume] by Automated count 34.8 g/dL 32.0-36.0 Mchc [facility] ([facility]) Platelets [#/volume] in Blood by Automated count 253 thousand/uL 14 0-400 Platelet Count LE[facility] ([facility]) Erythrocyte distribution width [Ratio] by Automated count 12.4 % 11.0-15.0 Rdw LE[facility] ([facility]) Platelet mean volume [Entitic volume] in Blood by Noman-Kisha 9.8 fL 7.5-12.5 Mpv LEAH ([facility]) Neutrophils [#/volume] in Blood by Automated count 6146 cells/uL 15 00-7800 Absolute Neutrophils LEAH ([facility]) Lymphocytes [#/volume] in Blood by Automated count 1479 cells/uL 85 0-3900 Absolute Lymphocytes LE[facility] ([facility]) Monocytes [#/volume] in Blood by Automated count 655 cells/uL 200-9 50 Absolute Monocytes LE[facility] ([facility]) Eosinophils [#/volume] in Blood by Automated count 162 cells/uL 15- 500 Absolute Eosinophils LEAH ([facility]) Basophils [#/volume] in Blood by Automated count 60 cells/uL 0-200 Absolute Basophils LE[facility] ([facility]) Neutrophils/100 leukocytes in Blood by Automated count 72.3 % 38-80 Neutrophils LEAH ([facility]) Monocytes/100 leukocytes in Blood by Automated count 7.7 % 0-13 Monocytes LE[facility] ([facility]) Lymphocytes/100 leukocytes in Blood by Automated count 17.4 % 15-49 Lymphocytes [facility] ([facility]) Eosinophils/100 leukocytes in Blood by Automated count 1.9 % 0-8 Eosinophils LE[facility] ([facility]) Basophils/100 leukocytes in Blood by Automated count 0.7 % 0-2 Basophils [facility] ([facility]) ID Date Data Source [id number] 07/30/2021 12:49:00 PM EDT [facility] ([facility]) Name Value Range Interpretation Code Description Data Adri rce(s) Supporting Document(s) Glucose [Mass/volume] in Serum or Plasma 103 mg/dL 65-99 Above high normal Glucose [facility] ([facility]) Urea nitrogen [Mass/volume] in Serum or Plasma 19 mg/dL 7-25 Urea Nitrogen (BUN) [facility]) Creatinine [Mass/volume] in Serum or Plasma 0.95 mg/dL 0.70-1.18 Creatinine [facility]) Glomerular filtration rate/1.73 sq M.pre dicted among blacks [Volume Rate/Area] in Serum, Plasma or Blood by Creatinine-based formula (CKD-EPI) 92 mL/min/1.73m2 > or = 60 eGFR [facility]AH ([facility]) Glomerular filtration rate/1.73 sq M.pre dicted among non-blacks [Volume Rate/Area] in Serum, Plasma or Blood by Creatinine-based formula (CKD-EPI) 80 mL/min/1.73m2 > or = 60 eGFR Non-afr. [place]ic LEAH ([facility]) Urea nitrogen/Creatinine [Mass Ratio] in Serum or Plasma not applic able 6-22 BUN/creatinine [facility] Sodium [Moles/volume] in Serum or Plasma 140 mmol/L 135-146 Sodium [facility] Chloride [Moles/volume] in Serum or Plasma 107 mmol/L 98-110 Chloride [facility]) Potassium [Moles/volume] in Serum or Plasma 4.6 mmol/L 3.5-5.3 Potassium [facility]) Carbon dioxide, total [Moles/volume] in Serum or Plasma 27 mmol/L 20-32 Carbon Dioxide LEAH ([facility]) Protein [Mass/volume] in Serum or Plasma 6.7 g/dL 6.1-8.1 Protein, Total LEAH ([facility]) Calcium [Mass/volume] in Serum or Plasma 9.2 mg/dL 8.6-10.3 Calcium LEAH ([facility]) Albumin [Mass/volume] in Serum or Plasma 4.3 g/dL 3.6-5.1 Albumin PARKER ([facility]) Globulin [Mass/volume] in Serum by calculation 2.4 g/dL_(calc) 1.9- 3.7 Globulin PARKER ([facility]) Alkaline phosphatase [Enzymatic activity/volume] in Serum or Plasma 72 U/L 35-144 Alkaline Phosphatase LEAH ([facility]) Bilirubin.total [Mass/volume] in Serum or Plasma 0.7 mg/dL 0.2-1 .2 Bilirubin, Total LEAH ([facility]) Albumin/Globulin [Mass Ratio] in Serum or Plasma 1.8 (calc) 1.0-2 .5 Albumin/globulin Ratio LEAH ([facility]) Aspartate aminotransferase [Enzymatic activity/volume] in Serum or Plasma 13 U/L 10-35 Ast PARKER ([facility]) Alanine aminotransferase [Enzymatic activity/volume] in Seru m or Plasma 10 U/L 9-46 Alt LEAH ([facility]) ID Date Data Source [id number] 07/30/2021 12:49:00 PM EDT PARKER ([facility]) Name Value Range Interpretation Code Description Data Adri rce(s) Supporting Document(s) Cholesterol in HDL [Mass/volume] in Serum or Plasma 31 mg/dL > or = 40 Below low normal HDL Cholesterol LEAH ([facility]) Cholesterol [Mass/volume] in Serum or Plasma 155 mg/dL <200 Cholesterol, Total LEAH ([facility]) Cholesterol in LDL [Mass/volume] in Serum or Plasma by calculation 102 mg/dL_(calc) Above high normal LDL-cholesterol LEAH ([facility]) Triglyceride [Mass/volume] in Serum or Plasma 120 mg/dL <150 Triglycerides LEAH ([facility]) Cholesterol.total/Cholesterol in HDL [Mass Ratio] in Serum o r Plasma 5.0 (calc) <5.0 Above high normal Chol/hdlc Ratio LEAH ([facility]) Cholesterol non HDL [Mass/volume] in Serum or Plasma 124 mg/dL_(rosa c) <130 Non HDL Cholesterol LEAH ([facility]) ID Date Data Source [id number] 07/30/2021 12:02:00 PM EDT LEAH ([facility]) Name Value Range Interpretation Code Description Data Adri rce(s) Supporting Document(s) bilirubin neg Bilirubin LEAH ([facility]) blood neg Blood LEAH ([facility]) leukocytes neg Leukocytes LEAH ([facility]) ketone +- Ketone LEAH ([facility]) glucose neg Glucose LEAH ([facility]) nitrite neg Nitrite LEAH ([facility]) pH Ph LEAH ([facility]) urobilinogen Urobilinogen LEAH ([facility]) protein +- Protein LEAH ([facility]) specific gravity Specific [place] [facility] [place] ([facility]) ID Date Data Source [id number] 07/30/2021 12:02:00 PM EDT LEAH ([facility]) Name Value Range Interpretation Code Description Data Adri rce(s) Supporting Document(s) blood neg Blood LEAH ([facility]) glucose neg Glucose LEAH ([facility]) bilirubin neg Bilirubin LEAH ([facility]) nitrite neg Nitrite LEAH ([facility]) leukocytes neg Leukocytes LEAH ([facility]) ketone +- Ketone LEAH ([facility]) pH Ph LEAH ([facility]) protein +- Protein LEAH ([facility]) urobilinogen Urobilinogen LEAH ([facility]) specific gravity Specific [place] AT [facility] ([facility]) ID Date Data Source [id number] 07/30/2021 12:02:00 PM EDT LEAH ([facility]) Name Value Range Interpretation Code Description Data Adri rce(s) Supporting Document(s) bilirubin neg Bilirubin LEAH ([facility]) blood neg Blood LEAH ([facility]) ketone +- Ketone LEAH ([facility]) glucose neg Glucose LEAH ([facility]) leukocytes neg Leukocytes LEAH ([facility]) pH Ph LEAH ([facility]) nitrite neg Nitrite LEAH ([facility]) specific gravity Specific [place] AT [facility] ([facility]) protein +- Protein LEAH ([facility]) urobilinogen Urobilinogen PARKER ([facility]) ID Date Data Source [id number] 07/30/2021 11:36:00 AM EDT LEAH ([facility]) Name Value Range Interpretation Code Description Data Adri rce(s) Supporting Document(s) sars-cov-2 negative negative Sars-cov-2 PARKER ([facility]) ID Date Data Source [id number] 07/30/2021 11:36:00 AM EDT LEAH ([facility]) Name Value Range Interpretation Code Description Data Adri rce(s) Supporting Document(s) sars-cov-2 negative negative Sars-cov-2 PARKER ([facility]) ID Date Data Source [id number] 07/30/[facility]21 11:36[facility] Name Value Range Interpretation Code Description Data Adri rce(s) Supporting Document(s) sars-cov-2 negative negative Sars-cov-2 [facility]) ID Date Data Source [id number] 07/30/2021 11:21:00 AM EDT [facility] Name Value Range Interpretation Code Description Data Adri rce(s) Supporting Document(s) SARS coronavirus 2 RdRp gene [Presence] in Respiratory specimen by SURY with probe detection Not detected [facility] This lab was ordered by [facility] and reported by [facility]. ID Date Data Source [id number] 10/06/2020 10:00:00 AM EST LEAH ([facility]) Name Value Range Interpretation Code Description Data Adri rce(s) Supporting Document(s) PSA total 2.6 NG/mL 0.0-4.0 PSA Total PARKER ([facility]) PSA comment . PSA Comment PARKER ([facility]) ID Date Data Source [id number] 10/06/2020 10:00:00 AM EST P[facility] ([facility]) Name Value Range Interpretation Code Description Data Adri rce(s) Supporting Document(s) Hemoglobin A1c/Hemoglobin.total in Blood 5.8 % Hemoglobin a1C PARKER ([facility]) estimated average glucose 120 mg/dL 60-110 Above high norm al Estimated Average Glucose PARKER ([facility]) ID Date Data Source [id number] 10/06/2020 10:00:00 AM EST LEAH ([facility]) Name Value Range Interpretation Code Description Data Adri rce(s) Supporting Document(s) total 25(oh) vitamin D 60.9 NG/mL 30.0-100.0 Total 25(Oh) Vitamin D PARKER ([facility]) ID Date Data Source [id number] 10/06/2020 10:00:00 AM EST [facility]) Name Value Range Interpretation Code Description Data Adri rce(s) Supporting Document(s) thyroid stimulating hormone 4.440 uIU/mL 0.358-3.740 Above high no rmal Thyroid Stimulating Hormone LEAH ([facility]) free T4 1.12 NG/dL 0.76-1.46 Free T4 LEAH ([facility]) ID Date Data Source [id number] 10/06/2020 10:00:00 AM EST LEAH ([facility]) Name Value Range Interpretation Code Description Data Adri rce(s) Supporting Document(s) triglycerides level 82 mg/dL <150 Triglycerides Le natalya LEAH ([facility]) cholesterol level 135 mg/dL <200 Cholesterol Level LEAH ([facility]) Cholesterol in LDL [Mass/volume] in Serum or Plasma 81 mg/dL <1 00 LDL Cholesterol LEAH ([facility]) HDL cholesterol 38 mg/dL >40 Below low normal HDL Cholestero l PARKER ([facility]) non-HDL-C 97 mg/dL Non-hdl-c LEAH ([facility]) cholesterol risk ratio <5 Cholesterol R isk Ratio PARKER ([facility]) ID Date Data Source [id number] 10/06/2020 10:00:00 AM EST [facility] ([facility]) Name Value Range Interpretation Code Description Data Adri rce(s) Supporting Document(s) glucose, fasting 120 mg/dL 70-100 Above high normal Glucose, Fas ting LEAH ([facility]) blood urea nitrogen 27 mg/dL 7-18 Above high normal Blood Ure a Nitrogen LEAH ([facility]) creatinine for GFR 1.20 mg/dL 0.70-1.30 Creatinine for GF R LEAH ([facility]) glomerular filtration rate > 60.0 >42 Glomerula r Filtration Rate LEAH ([facility]) potassium serum 4.8 mEq/L 3.5-5.1 Potassium Serum ATHE NA ([facility]) sodium level 137 mEq/L 136-145 Sodium Level LEAH ([facility]) carbon dioxide level 28 mEq/L 21-32 Carbon Dioxide Level LEAH ([facility]) anion gap 5 mEq/L 8-16 Below low normal Anion Gap LEAH ( [facility]) calcium level 9.1 mg/dL 8.8-10.2 Calcium Level PARKER ( [facility]) chloride level 104 mEq/L 98-107 Chloride Level LEAH ([facility]) alkaline phosphatase 75 U/L 45-117 Alkaline Phosph atase LEAH ([facility]) ALT/SGPT 21 U/L 12-78 ALT/SGPT LEAH ([facility]) AST/SGOT 13 U/L 7-37 AST/SGOT LEAH ([facility]) bilirubin,total 0.5 mg/dL 0.2-1.0 Bilirubin,total ATHE NA ([facility]) albumin/globulin ratio Albumin/globu evie Ratio LEAH ([facility]) albumin 4.1 gm/dL 3.2-5.2 Albumin LEAH ([facility]) total protein 6.9 gm/dL 6.4-8.2 Total Protein LEAH ( [facility]) ID Date Data Source [id number] 10/06/2020 10:00:00 AM EST LEAH ([facility]) Name Value Range Interpretation Code Description Data Adri rce(s) Supporting Document(s) white blood count 8.2 10 4.0-10.0 White Blood Count LEAH ([facility]) red blood count 4.83 10 4.30-6.10 Red Blood Count ATHE ([facility]) hemoglobin 14.7 g/dL 13.5-17.5 Hemoglobin LEAH ([facility]) hematocrit 45.5 % 42.0-52.0 Hematocrit LEAH ([facility]) mean corpuscular volume 94.2 fL 80.0-96.0 Mean Corpusc ular Volume LEAH ([facility]) mean corpuscular HGB conc 32.3 g/dL 32.0-36.5 Mean Corpu scular HGB Conc LEAH ([facility]) mean corpuscular hemoglobin 30.4 pg 27.0-33.0 Mean Cor puscular Hemoglobin LEAH ([facility]) neutrophils % 72.5 % 36.0-66.0 Above high normal Neutrophils % A THENA ([facility]) red cell distribution width 12.6 % 11.5-14.5 Red Cell Distribution Width LEAH ([facility]) platelet count, automated 225 10 150-450 Platelet C ount, Automated LEAH ([facility]) eos % 2.2 % 0.0-3.0 Eos % LEAH ([facility]) mono % 6.0 % 0.0-5.0 Above high normal [place] % LEAH ([facility]) lymph % 18.2 % 24.0-44.0 Below low normal Lymph % LEAH ( [facility]) nucleated red blood cell % 0.0 % 0-0 Nucleated Red Blood Cell % LEAH ([facility]) baso % 0.7 % 0.0-1.0 Baso % PARKER ([facility]) immature granulocyte % 0.4 % 0-3.0 Immature Gran ulocyte % LEAH ([facility]) lymph # 1.5 10 1.5-5.0 Lymph # LEAH ([facility]) mono # 0.5 10 0.0-0.8 [place] # PARKER ([facility]) neutrophils # 5.9 10 1.5-8.5 Neutrophils # LEAH ( [facility]) eos # 0.2 10 0.0-0.5 Eos # LEAH ([facility]) baso # 0.1 10 0.0-0.2 Baso # LEAH ([facility]) ID Date Data Source [id number] 10/06/2020 10:00:00 AM EST [facility] ([facility]) Name Value Range Interpretation Code Description Data Adri rce(s) Supporting Document(s) PSA total 2.6 NG/mL 0.0-4.0 PSA Total PARKER ([facility]) PSA comment . PSA Comment [facility]ARKER ([facility]) ID Date Data Source [id number] 10/06/2020 10:00:00 AM EST [facility] ([facility]) Name Value Range Interpretation Code Description Data Adri rce(s) Supporting Document(s) Hemoglobin A1c/Hemoglobin.total in Blood 5.8 % Hemoglobin a1C LEAH ([facility]) estimated average glucose 120 mg/dL 60-110 Above high norm al Estimated Average Glucose LEAH ([facility]) ID Date Data Source [id number] 10/06/2020 10:00:00 AM EST LEAH ([facility]) Name Value Range Interpretation Code Description Data Adri rce(s) Supporting Document(s) total 25(oh) vitamin D 60.9 NG/mL 30.0-100.0 Total 25(Oh) Vitamin D LEAH ([facility]) ID Date Data Source [id number] 10/06/2020 10:00:00 AM EST LEAH ([facility]) Name Value Range Interpretation Code Description Data Adri rce(s) Supporting Document(s) thyroid stimulating hormone 4.440 uIU/mL 0.358-3.740 Above high no rmal Thyroid Stimulating Hormone LEAH ([facility]) free T4 1.12 NG/dL 0.76-1.46 Free T4 PARKER ([facility]) ID Date Data Source [id number] 10/06/2020 10:00:00 AM EST LEAH ([facility]) Name Value Range Interpretation Code Description Data Adri rce(s) Supporting Document(s) cholesterol level 135 mg/dL <200 Cholesterol Level LEAH ([facility]) HDL cholesterol 38 mg/dL >40 Below low normal HDL Cholestero l LEAH ([facility]) triglycerides level 82 mg/dL <150 Triglycerides Le natalya LEAH ([facility]) cholesterol risk ratio <5 Cholesterol R isk Ratio LEAH ([facility]) non-HDL-C 97 mg/dL Non-hdl-c LEAH ([facility]) Cholesterol in LDL [Mass/volume] in Serum or Plasma 81 mg/dL <1 00 LDL Cholesterol LEAH ([facility]) ID Date Data Source [id number] 10/06/2020 10:00:00 AM EST LEAH ([facility]) Name Value Range Interpretation Code Description Data Adri rce(s) Supporting Document(s) glucose, fasting 120 mg/dL 70-100 Above high normal Glucose, Fas ting LEAH ([facility]) creatinine for GFR 1.20 mg/dL 0.70-1.30 Creatinine for GF R LEAH ([facility]) blood urea nitrogen 27 mg/dL 7-18 Above high normal Blood Ure a Nitrogen LEAH ([facility]) glomerular filtration rate > 60.0 >42 Glomerula r Filtration Rate LEAH ([facility]) sodium level 137 mEq/L 136-145 Sodium Level LEAH ([facility]) carbon dioxide level 28 mEq/L 21-32 Carbon Dioxide Level LEAH ([facility]) potassium serum 4.8 mEq/L 3.5-5.1 Potassium Serum ATHE NA ([facility]) chloride level 104 mEq/L 98-107 Chloride Level LEAH ([facility]) anion gap 5 mEq/L 8-16 Below low normal Anion Gap LEAH ( [facility]) calcium level 9.1 mg/dL 8.8-10.2 Calcium Level LEAH ( [facility]) AST/SGOT 13 U/L 7-37 AST/SGOT LEAH ([facility]) bilirubin,total 0.5 mg/dL 0.2-1.0 Bilirubin,total ATHE NA ([facility]) alkaline phosphatase 75 U/L 45-117 Alkaline Phosph atase LEAH ([facility]) total protein 6.9 gm/dL 6.4-8.2 Total Protein LEAH ( [facility]) ALT/SGPT 21 U/L 12-78 ALT/SGPT LEAH ([facility]) albumin 4.1 gm/dL 3.2-5.2 Albumin LEAH ([facility]) albumin/globulin ratio Albumin/globu evie Ratio LEAH ([facility]) ID Date Data Source [id number] 10/06/2020 10:00:00 AM EST LEAH ([facility]) Name Value Range Interpretation Code Description Data Adri rce(s) Supporting Document(s) white blood count 8.2 10 4.0-10.0 White Blood Count LEAH ([facility]) red blood count 4.83 10 4.30-6.10 Red Blood Count ATHE NA ([facility]) hemoglobin 14.7 g/dL 13.5-17.5 Hemoglobin LEAH ([facility]) hematocrit 45.5 % 42.0-52.0 Hematocrit LEAH ([facility]) mean corpuscular volume 94.2 fL 80.0-96.0 Mean Corpusc ular Volume LEAH ([facility]) mean corpuscular HGB conc 32.3 g/dL 32.0-36.5 Mean Corpu scular HGB Conc LEAH ([facility]) mean corpuscular hemoglobin 30.4 pg 27.0-33.0 Mean Cor puscular Hemoglobin LEAH ([facility]) red cell distribution width 12.6 % 11.5-14.5 Red Cell Distribution Width LEAH ([facility]) neutrophils % 72.5 % 36.0-66.0 Above high normal Neutrophils % A THENA ([facility]) platelet count, automated 225 10 150-450 Platelet C ount, Automated PARKER ([facility]) lymph % 18.2 % 24.0-44.0 Below low normal Lymph % LEAH ( [facility]) eos % 2.2 % 0.0-3.0 Eos % LEAH ([facility]) mono % 6.0 % 0.0-5.0 Above high normal [place] % LEAH ([facility]) immature granulocyte % 0.4 % 0-3.0 Immature Gran ulocyte % LEAH ([facility]) neutrophils # 5.9 10 1.5-8.5 Neutrophils # PARKER ( [facility]) nucleated red blood cell % 0.0 % 0-0 Nucleated Red Blood Cell % LEAH ([facility]) baso % 0.7 % 0.0-1.0 Baso % LEAH ([facility]) lymph # 1.5 10 1.5-5.0 Lymph # LEAH ([facility]) eos # 0.2 10 0.0-0.5 Eos # LEAH ([facility]) mono # 0.5 10 0.0-0.8 [place] # LEAH ([facility]) baso # 0.1 10 0.0-0.2 Baso # LEAH ([facility]) ID Date Data Source [id number] 10/06/2020 10:00:00 AM EST LEAH ([facility]) Name Value Range Interpretation Code Description Data Adri rce(s) Supporting Document(s) PSA total 2.6 NG/mL 0.0-4.0 PSA Total LEAH ([facility]) PSA comment . PSA Comment LEAH ([facility]) ID Date Data Source [id number] 10/06/2020 10:00:00 AM EST LEAH ([facility]) Name Value Range Interpretation Code Description Data Adri rce(s) Supporting Document(s) Hemoglobin A1c/Hemoglobin.total in Blood 5.8 % Hemoglobin a1C PARKER ([facility]) estimated average glucose 120 mg/dL 60-110 Above high norm al Estimated Average Glucose PARKER ([facility]) ID Date Data Source [id number] 10/06/2020 10:00:00 AM EST LEAH ([facility]) Name Value Range Interpretation Code Description Data Adri rce(s) Supporting Document(s) total 25(oh) vitamin D 60.9 NG/mL 30.0-100.0 Total 25(Oh) Vitamin D LEAH ([facility]) ID Date Data Source [id number] 10/06/2020 10:00:00 AM EST LEAH ([facility]) Name Value Range Interpretation Code Description Data Adri rce(s) Supporting Document(s) thyroid stimulating hormone 4.440 uIU/mL 0.358-3.740 Above high no rmal Thyroid Stimulating Hormone LEAH ([facility]) free T4 1.12 NG/dL 0.76-1.46 Free T4 LEAH ([facility]) ID Date Data Source [id number] 10/06/2020 10:00:00 AM EST LEAH ([facility]) Name Value Range Interpretation Code Description Data Adri rce(s) Supporting Document(s) triglycerides level 82 mg/dL <150 Triglycerides Le natalya LEAH ([facility]) cholesterol level 135 mg/dL <200 Cholesterol Level LEAH ([facility]) HDL cholesterol 38 mg/dL >40 Below low normal HDL Cholestero l PARKER ([facility]) cholesterol risk ratio <5 Cholesterol R isk Ratio LEAH ([facility]) Cholesterol in LDL [Mass/volume] in Serum or Plasma 81 mg/dL <1 00 LDL Cholesterol LEAH ([facility]) non-HDL-C 97 mg/dL Non-hdl-c [facility] [facility]) ID Date Data Source [id number] 10/06/2020 10:00:00 AM EST PARKER ([facility]) Name Value Range Interpretation Code Description Data Adri rce(s) Supporting Document(s) creatinine for GFR 1.20 mg/dL 0.70-1.30 Creatinine for GF R LEAH ([facility]) blood urea nitrogen 27 mg/dL 7-18 Above high normal Blood Ure a Nitrogen LEAH ([facility]) glucose, fasting 120 mg/dL 70-100 Above high normal Glucose, Fas ting LEAH ([facility]) glomerular filtration rate > 60.0 >42 Glomerula r Filtration Rate LEAH ([facility]) chloride level 104 mEq/L 98-107 Chloride Level LEAH ([facility]) sodium level 137 mEq/L 136-145 Sodium Level LEAH ([facility]) potassium serum 4.8 mEq/L 3.5-5.1 Potassium Serum ATHE NA ([facility]) AST/SGOT 13 U/L 7-37 AST/SGOT LEAH ([facility]) calcium level 9.1 mg/dL 8.8-10.2 Calcium Level LEAH ( [facility]) carbon dioxide level 28 mEq/L 21-32 Carbon Dioxide Level LEAH ([facility]) anion gap 5 mEq/L 8-16 Below low normal Anion Gap LEAH ( [facility]) ALT/SGPT 21 U/L 12-78 ALT/SGPT LEAH ([facility]) alkaline phosphatase 75 U/L 45-117 Alkaline Phosph atase LEAH ([facility]) bilirubin,total 0.5 mg/dL 0.2-1.0 Bilirubin,total ATHE NA ([facility]) total protein 6.9 gm/dL 6.4-8.2 Total Protein LEAH ( [facility]) albumin 4.1 gm/dL 3.2-5.2 Albumin LEAH ([facility]) albumin/globulin ratio Albumin/globu evie Ratio LEAH ([facility]) ID Date Data Source [id number] 10/06/2020 10:00:00 AM EST LEAH ([facility]) Name Value Range Interpretation Code Description Data Adri rce(s) Supporting Document(s) red blood count 4.83 10 4.30-6.10 Red Blood Count ATHE ([facility]) hemoglobin 14.7 g/dL 13.5-17.5 Hemoglobin LEAH ([facility]) white blood count 8.2 10 4.0-10.0 White Blood Count LEAH ([facility]) hematocrit 45.5 % 42.0-52.0 Hematocrit LEAH ([facility]) mean corpuscular volume 94.2 fL 80.0-96.0 Mean Corpusc ular Volume LEAH ([facility]) mean corpuscular hemoglobin 30.4 pg 27.0-33.0 Mean Cor puscular Hemoglobin LEAH ([facility]) mean corpuscular HGB conc 32.3 g/dL 32.0-36.5 Mean Corpu scular HGB Conc LEAH ([facility]) red cell distribution width 12.6 % 11.5-14.5 Red Cell Distribution Width LEAH ([facility]) lymph % 18.2 % 24.0-44.0 Below low normal Lymph % LEAH ( [facility]) platelet count, automated 225 10 150-450 Platelet C ount, Automated LEAH ([facility]) neutrophils % 72.5 % 36.0-66.0 Above high normal Neutrophils % A THENA ([facility]) mono % 6.0 % 0.0-5.0 Above high normal [place] % LEAH ([facility]) eos % 2.2 % 0.0-3.0 Eos % LEAH ([facility]) baso % 0.7 % 0.0-1.0 Baso % PARKER ([facility]) nucleated red blood cell % 0.0 % 0-0 Nucleated Red Blood Cell % PARKER ([facility]) neutrophils # 5.9 10 1.5-8.5 Neutrophils # PARKER ( [facility]) immature granulocyte % 0.4 % 0-3.0 Immature Gran ulocyte % PARKER ([facility]) eos # 0.2 10 0.0-0.5 Eos # LEAH ([facility]) lymph # 1.5 10 1.5-5.0 Lymph # LEAH ([facility]) mono # 0.5 10 0.0-0.8 [place] # LEAH ([facility]) baso # 0.1 10 0.0-0.2 Baso # LEAH ([facility]) ID Date Data Source [id number] 10/06/2020 10:00:00 AM EST LEAH ([facility]) Name Value Range Interpretation Code Description Data Ardi rce(s) Supporting Document(s) PSA comment . PSA Comment LEAH ([facility]) PSA total 2.6 NG/mL 0.0-4.0 PSA Total PARKER ([facility]) ID Date Data Source [id number] 10/06/2020 10:00:00 AM EST LEAH ([facility]) Name Value Range Interpretation Code Description Data Adri rce(s) Supporting Document(s) Hemoglobin A1c/Hemoglobin.total in Blood 5.8 % Hemoglobin a1C LEAH ([facility]) estimated average glucose 120 mg/dL 60-110 Above high norm al Estimated Average Glucose LEAH ([facility]) ID Date Data Source [id number] 10/06/2020 10:00:00 AM EST LEAH ([facility]) Name Value Range Interpretation Code Description Data Adri rce(s) Supporting Document(s) total 25(oh) vitamin D 60.9 NG/mL 30.0-100.0 Total 25(Oh) Vitamin D PARKER ([facility]) ID Date Data Source [id number] 10/06/2020 10:00:00 AM EST LEAH ([facility]) Name Value Range Interpretation Code Description Data Adri rce(s) Supporting Document(s) thyroid stimulating hormone 4.440 uIU/mL 0.358-3.740 Above high no rmal Thyroid Stimulating Hormone LEAH ([facility]) free T4 1.12 NG/dL 0.76-1.46 Free T4 PARKER ([facility]) ID Date Data Source [id number] 10/06/2020 10:00:00 AM EST LEAH ([facility]) Name Value Range Interpretation Code Description Data Adri rce(s) Supporting Document(s) Cholesterol in LDL [Mass/volume] in Serum or Plasma 81 mg/dL <1 00 LDL Cholesterol LEAH ([facility]) triglycerides level 82 mg/dL <150 Triglycerides Le natalya LEAH ([facility]) cholesterol level 135 mg/dL <200 Cholesterol Level LEAH ([facility]) HDL cholesterol 38 mg/dL >40 Below low normal HDL Cholestero l LEAH ([facility]) non-HDL-C 97 mg/dL Non-hdl-c LEAH ([facility]) cholesterol risk ratio <5 Cholesterol R isk Ratio LEAH ([facility]) ID Date Data Source [id number] 10/06/2020 10:00:00 AM EST LEAH ([facility]) Name Value Range Interpretation Code Description Data Adri rce(s) Supporting Document(s) glucose, fasting 120 mg/dL 70-100 Above high normal Glucose, Fas ting LEAH ([facility]) blood urea nitrogen 27 mg/dL 7-18 Above high normal Blood Ure a Nitrogen LEAH ([facility]) creatinine for GFR 1.20 mg/dL 0.70-1.30 Creatinine for GF R LEAH ([facility]) glomerular filtration rate > 60.0 >42 Glomerula r Filtration Rate LEAH ([facility]) potassium serum 4.8 mEq/L 3.5-5.1 Potassium Serum ATHE ([facility]) sodium level 137 mEq/L 136-145 Sodium Level LEAH ([facility]) chloride level 104 mEq/L 98-107 Chloride Level LEAH ([facility]) calcium level 9.1 mg/dL 8.8-10.2 Calcium Level LEAH ( [facility]) AST/SGOT 13 U/L 7-37 AST/SGOT LEAH ([facility]) anion gap 5 mEq/L 8-16 Below low normal Anion Gap LEAH ( [facility]) carbon dioxide level 28 mEq/L 21-32 Carbon Dioxide Level LEAH ([facility]) total protein 6.9 gm/dL 6.4-8.2 Total Protein LEAH ( [facility]) bilirubin,total 0.5 mg/dL 0.2-1.0 Bilirubin,total ATHE NA ([facility]) ALT/SGPT 21 U/L 12-78 ALT/SGPT LEAH ([facility]) alkaline phosphatase 75 U/L 45-117 Alkaline Phosph atase LEAH ([facility]) albumin 4.1 gm/dL 3.2-5.2 Albumin LEAH ([facility]) albumin/globulin ratio Albumin/globu evie Ratio LEAH ([facility]) ID Date Data Source [id number] 10/06/2020 10:00:00 AM EST LEAH ([facility]) Name Value Range Interpretation Code Description Data Adri rce(s) Supporting Document(s) red blood count 4.83 10 4.30-6.10 Red Blood Count ATHE NA ([facility]) white blood count 8.2 10 4.0-10.0 White Blood Count LEAH ([facility]) hematocrit 45.5 % 42.0-52.0 Hematocrit LEAH ([facility]) mean corpuscular volume 94.2 fL 80.0-96.0 Mean Corpusc ular Volume LEAH ([facility]) hemoglobin 14.7 g/dL 13.5-17.5 Hemoglobin LEAH ([facility]) red cell distribution width 12.6 % 11.5-14.5 Red Cell Distribution Width LEAH ([facility]) mean corpuscular HGB conc 32.3 g/dL 32.0-36.5 Mean Corpu scular HGB Conc LEAH ([facility]) mean corpuscular hemoglobin 30.4 pg 27.0-33.0 Mean Cor puscular Hemoglobin LEAH ([facility]) neutrophils % 72.5 % 36.0-66.0 Above high normal Neutrophils % A THENA ([facility]) lymph % 18.2 % 24.0-44.0 Below low normal Lymph % LEAH ( [facility]) platelet count, automated 225 10 150-450 Platelet C ount, Automated LEAH ([facility]) mono % 6.0 % 0.0-5.0 Above high normal [place] % LEAH ([facility]) eos % 2.2 % 0.0-3.0 Eos % LEAH ([facility]) baso % 0.7 % 0.0-1.0 Baso % LEAH ([facility]) immature granulocyte % 0.4 % 0-3.0 Immature Gran ulocyte % LEAH ([facility]) neutrophils # 5.9 10 1.5-8.5 Neutrophils # LEAH ( [facility]) nucleated red blood cell % 0.0 % 0-0 Nucleated Red Blood Cell % LEAH ([facility]) lymph # 1.5 10 1.5-5.0 Lymph # LEAH ([facility]) mono # 0.5 10 0.0-0.8 [place] # LEAH ([facility]) baso # 0.1 10 0.0-0.2 Baso # LEAH ([facility]) eos # 0.2 10 0.0-0.5 Eos # LEAH ([facility]) ID Date Data Source [id number] 10/06/2020 10:00:00 AM EST LEAH ([facility]) Name Value Range Interpretation Code Description Data Adri rce(s) Supporting Document(s) PSA total 2.6 NG/mL 0.0-4.0 PSA Total LEAH ([facility]) PSA comment . PSA Comment LEAH ([facility]) ID Date Data Source [id number] 10/06/2020 10:00:00 AM EST LEAH ([facility]) Name Value Range Interpretation Code Description Data Adri rce(s) Supporting Document(s) Hemoglobin A1c/Hemoglobin.total in Blood 5.8 % Hemoglobin a1C PARKER ([facility]) estimated average glucose 120 mg/dL 60-110 Above high norm al Estimated Average Glucose PARKER ([facility]) ID Date Data Source [id number] 10/06/2020 10:00:00 AM EST LEAH ([facility]) Name Value Range Interpretation Code Description Data Adri rce(s) Supporting Document(s) total 25(oh) vitamin D 60.9 NG/mL 30.0-100.0 Total 25(Oh) Vitamin D PARKER ([facility]) ID Date Data Source [id number] 10/06/2020 10:00:00 AM EST LEAH ([facility]) Name Value Range Interpretation Code Description Data Adri rce(s) Supporting Document(s) free T4 1.12 NG/dL 0.76-1.46 Free T4 LEAH ([facility]) thyroid stimulating hormone 4.440 uIU/mL 0.358-3.740 Above high no rmal Thyroid Stimulating Hormone LEAH ([facility]) ID Date Data Source [id number] 10/06/2020 10:00:00 AM EST LEAH ([facility]) Name Value Range Interpretation Code Description Data Adri rce(s) Supporting Document(s) triglycerides level 82 mg/dL <150 Triglycerides Le natalya LEAH ([facility]) cholesterol level 135 mg/dL <200 Cholesterol Level LEAH ([facility]) HDL cholesterol 38 mg/dL >40 Below low normal HDL Cholestero l LEAH ([facility]) non-HDL-C 97 mg/dL Non-hdl-c LEAH ([facility]) cholesterol risk ratio <5 Cholesterol R isk Ratio LEAH ([facility]) Cholesterol in LDL [Mass/volume] in Serum or Plasma 81 mg/dL <1 00 LDL Cholesterol LEAH ([facility]) ID Date Data Source [id number] 10/06/2020 10:00:00 AM EST LEAH ([facility]) Name Value Range Interpretation Code Description Data Adri rce(s) Supporting Document(s) glucose, fasting 120 mg/dL 70-100 Above high normal Glucose, Fas ting LEAH ([facility]) blood urea nitrogen 27 mg/dL 7-18 Above high normal Blood Ure a Nitrogen LEAH ([facility]) sodium level 137 mEq/L 136-145 Sodium Level LEAH (No [facility]) glomerular filtration rate > 60.0 >42 Glomerula r Filtration Rate LEAH ([facility]) creatinine for GFR 1.20 mg/dL 0.70-1.30 Creatinine for GF R LEAH ([facility]) potassium serum 4.8 mEq/L 3.5-5.1 Potassium Serum ATHE NA [facility]) chloride level 104 mEq/L 98-107 Chloride Level PARKER ([facility]) carbon dioxide level 28 mEq/L 21-32 Carbon Dioxide Level LEAH ([facility]) calcium level 9.1 mg/dL 8.8-10.2 Calcium Level LEAH ( [facility]) anion gap 5 mEq/L 8-16 Below low normal Anion Gap LEAH ( [facility]) AST/SGOT 13 U/L 7-37 AST/SGOT LEAH ([facility]) ALT/SGPT 21 U/L 12-78 ALT/SGPT LEAH ([facility]) alkaline phosphatase 75 U/L 45-117 Alkaline Phosph atase LEAH ([facility]) bilirubin,total 0.5 mg/dL 0.2-1.0 Bilirubin,total ATHE ([facility]) albumin 4.1 gm/dL 3.2-5.2 Albumin LEAH ([facility]) total protein 6.9 gm/dL 6.4-8.2 Total Protein LEAH ( [facility]) albumin/globulin ratio Albumin/globu evie Ratio LEAH ([facility]) ID Date Data Source [id number] 10/06/2020 10:00:00 AM EST PARKER ([facility]) Name Value Range Interpretation Code Description Data Adri rce(s) Supporting Document(s) red blood count 4.83 10 4.30-6.10 Red Blood Count ATHE ([facility]) hemoglobin 14.7 g/dL 13.5-17.5 Hemoglobin LEAH ([facility]) white blood count 8.2 10 4.0-10.0 White Blood Count LEAH ([facility]) mean corpuscular hemoglobin 30.4 pg 27.0-33.0 Mean Cor puscular Hemoglobin LEAH ([facility]) mean corpuscular volume 94.2 fL 80.0-96.0 Mean Corpusc ular Volume LEAH ([facility]) hematocrit 45.5 % 42.0-52.0 Hematocrit LEAH ([facility]) platelet count, automated 225 10 150-450 Platelet C ount, Automated LEAH ([facility]) red cell distribution width 12.6 % 11.5-14.5 Red Cell Distribution Width LEAH ([facility]) neutrophils % 72.5 % 36.0-66.0 Above high normal Neutrophils % A THENA ([facility]) mean corpuscular HGB conc 32.3 g/dL 32.0-36.5 Mean Corpu scular HGB Conc LAEH ([facility]) lymph % 18.2 % 24.0-44.0 Below low normal Lymph % LEAH ( [facility]) mono % 6.0 % 0.0-5.0 Above high normal [place] % LEAH ([facility]) eos % 2.2 % 0.0-3.0 Eos % LEAH ([facility]) baso % 0.7 % 0.0-1.0 Baso % PARKER ([facility]) immature granulocyte % 0.4 % 0-3.0 Immature Gran ulocyte % PARKER ([facility]) nucleated red blood cell % 0.0 % 0-0 Nucleated Red Blood Cell % LEAH ([facility]) neutrophils # 5.9 10 1.5-8.5 Neutrophils # LEAH ( [facility]) mono # 0.5 10 0.0-0.8 [place] # LEAH ([facility]) lymph # 1.5 10 1.5-5.0 Lymph # LEAH ([facility]) eos # 0.2 10 0.0-0.5 Eos # LEAH ([facility]) baso # 0.1 10 0.0-0.2 Baso # LEAH ([facility]) ID Date Data Source [id number] 10/06/2020 09:51:00 AM EST LEAH ([facility]) Name Value Range Interpretation Code Description Data Adri rce(s) Supporting Document(s) bilirubin pos Abnormal (applies to non-numeric res ults) Bilirubin LEAH ([facility]) blood neg Blood LEAH ([facility]) nitrite neg Nitrite LEAH ([facility]) leukocytes pos Leukocytes LEAH ([facility]) glucose neg Glucose LEAH ([facility]) ketone pos Ketone LEAH ([facility]) urobilinogen 0.2 mg/dL Urobilinogen LEAH (No [facility]) protein pos Protein LEAH ([facility]) pH Ph LEAH ([facility]) specific gravity Specific [place] ([facility]) ID Date Data Source [id number] 10/06/2020 09:51:00 AM EST LEAH ([facility]) Name Value Range Interpretation Code Description Data Adri rce(s) Supporting Document(s) glucose neg Glucose LEAH ([facility]) blood neg Blood LEAH ([facility]) bilirubin pos Abnormal (applies to non-numeric res ults) Bilirubin LEAH ([facility]) ketone pos Ketone LEAH ([facility]) protein pos Protein LEAH ([facility]) leukocytes pos Leukocytes LEAH ([facility]) nitrite neg Nitrite LEAH ([facility]) pH Ph LEAH ([facility]) specific gravity Specific [place] ([facility]) urobilinogen 0.2 mg/dL Urobilinogen LEAH (No [facility]) ID Date Data Source [id number] 10/06/2020 09:51:00 AM EST LEAH ([facility]) Name Value Range Interpretation Code Description Data Adri rce(s) Supporting Document(s) bilirubin pos Abnormal (applies to non-numeric res ults) Bilirubin LEAH ([facility]) blood neg Blood LEAH ([facility]) ketone pos Ketone LEAH ([facility]) glucose neg Glucose LEAH ([facility]) leukocytes pos Leukocytes LEAH ([facility]) nitrite neg Nitrite LEAH ([facility]) pH Ph LEAH ([facility]) protein pos Protein LEAH ([facility]) specific gravity Specific [place] ([facility]) urobilinogen 0.2 mg/dL Urobilinogen LEAH (No [facility]) ID Date Data Source [id number] 10/06/2020 09:51:00 AM EST LEAH ([facility]) Name Value Range Interpretation Code Description Data Adri rce(s) Supporting Document(s) glucose neg Glucose LEAH ([facility]) blood neg Blood LEAH ([facility]) bilirubin pos Abnormal (applies to non-numeric res ults) Bilirubin LEAH ([facility]) leukocytes pos Leukocytes LEAH ([facility]) ketone pos Ketone LEAH ([facility]) protein pos Protein LEAH ([facility]) pH Ph LEAH ([facility]) nitrite neg Nitrite LEAH ([facility]) urobilinogen 0.2 mg/dL [facility] specific gravity Specific [place] ([facility]) ID Date Data Source [id number] 10/06/2020 09:51:00 AM EST LEAH ([facility]) Name Value Range Interpretation Code Description Data Adri rce(s) Supporting Document(s) blood neg Blood LEAH ([facility]) ketone pos Ketone LEAH ([facility]) bilirubin pos Abnormal (applies to non-numeric res ults) Bilirubin LEAH ([facility]) glucose neg Glucose LEAH ([facility]) leukocytes pos Leukocytes LEAH ([facility]) protein pos Protein LEAH ([facility]) pH Ph LEAH ([facility]) specific gravity Specific [place] ([facility]) nitrite neg Nitrite [facility] ([facility] [facility] urobilinogen 0.2 mg/dL Urobilinogen LEAH (No [facility]) ID Date Data Source [id number] 10/06/2020 09:40:00 AM EST LEAH ([facility]) Name Value Range Interpretation Code Description Data Adri rce(s) Supporting Document(s) ID Date Data Source [id number] 10/06/2020 09:40:00 AM EST LEAH ([facility]) Name Value Range Interpretation Code Description Data Adri rce(s) Supporting Document(s) appearance, urine hazy clear Appearance, Urine LEAH ([facility]) pH,urine 5.0 units 5.0-9.0 pH,urine LEAH ([facility]) color, urine yellow yellow Color, Urine LEAH (No [facility]) specific gravity urine auto 1.002-1.035 Specifi c [place] Urine Auto LEAH ([facility]) protein, urine auto negative negative Protein, Urine A uto LEAH ([facility]) ketone, urine auto trace negative Above high normal Ketone, Ur ine Auto PARKER ([facility]) urobilinogen, urine auto 2.0 mg/dL 0.0-2.0 Above high jose l Urobilinogen, Urine Auto LEAH ([facility]) glucose, urine (UA) auto negative negative Glucose, Ur ine (UA) Auto LEAH ([facility]) nitrite, urine auto negative negative Nitrite, Urine A uto LEAH ([facility]) bilirubin, urine auto negative negative Bilirubin, Uri ne Auto LEAH ([facility]) leukocyte esterase, urine auto trace negative Above high normal Leukocyte Esterase, Urine Auto LEAH ([facility]) blood, urine blood negative negative Blood, Urine Bloo d LEAH ([facility]) RBC, urine auto 2 /hpf 0-3 RBC, Urine Auto ATHE NA ([facility]) WBC, urine auto 3 /hpf 0-3 WBC, Urine Auto ATHE NA ([facility]) bacteria, urine auto negative negative Bacteria, Urine Auto LEAH ([facility]) mucus, urine small negative Mucus, Urine LEAH (No [facility]) squamous epithelial cell ur AU 0 /hpf 0-6 Squam ous Epithelial Cell Ur AU LEAH ([facility]) hyaline cast, urine auto 1 /lpf 0-1 Hyaline Carlo t, Urine Auto LEAH ([facility]) calcium oxalate crystals small none Calcium Oxa late Crystals LEAH ([facility]) ID Date Data Source [id number] 10/06/2020 09:40:00 AM EST LEAH ([facility]) Name Value Range Interpretation Code Description Data Adri rce(s) Supporting Document(s) ID Date Data Source [id number] 10/06/2020 09:40:00 AM EST LEAH ([facility]) Name Value Range Interpretation Code Description Data Adri rce(s) Supporting Document(s) color, urine yellow yellow Color, Urine LEAH (No [facility]) appearance, urine hazy clear Appearance, Urine LEAH ([facility]) pH,urine 5.0 units 5.0-9.0 pH,urine LEAH ([facility]) protein, urine auto negative negative Protein, Urine A uto LEAH ([facility]) specific gravity urine auto 1.002-1.035 Specifi c [place] Urine Auto LEAH ([facility]) urobilinogen, urine auto 2.0 mg/dL 0.0-2.0 Above high jose l Urobilinogen, Urine Auto LEAH ([facility]) ketone, urine auto trace negative Above high normal Ketone, Ur ine Auto LEAH ([facility]) glucose, urine (UA) auto negative negative Glucose, Ur ine (UA) Auto LEAH ([facility]) bilirubin, urine auto negative negative Bilirubin, Uri ne Auto LEAH ([facility]) leukocyte esterase, urine auto trace negative Above high normal Leukocyte Esterase, Urine Auto LEAH ([facility]) nitrite, urine auto negative negative Nitrite, Urine A uto LEAH ([facility]) blood, urine blood negative negative Blood, Urine Bloo d LEAH ([facility]) WBC, urine auto 3 /hpf 0-3 WBC, Urine Auto ATHE NA ([facility]) RBC, urine auto 2 /hpf 0-3 RBC, Urine Auto ATHE NA ([facility]) bacteria, urine auto negative negative Bacteria, Urine Auto LEAH ([facility]) squamous epithelial cell ur AU 0 /hpf 0-6 Squam ous Epithelial Cell Ur AU LEAH ([facility]) hyaline cast, urine auto 1 /lpf 0-1 Hyaline Carlo t, Urine Auto LEAH ([facility]) mucus, urine small negative Mucus, Urine LEAH (No [facility]) calcium oxalate crystals small none Calcium Oxa late Crystals LEAH ([facility]) ID Date Data Source [id number] 10/06/2020 09:40:00 AM EST LEAH ([facility]) Name Value Range Interpretation Code Description Data Adri rce(s) Supporting Document(s) ID Date Data Source [id number] 10/06/2020 09:40:00 AM EST LEAH ([facility]) Name Value Range Interpretation Code Description Data Adri rce(s) Supporting Document(s) appearance, urine hazy clear Appearance, Urine LEAH ([facility]) color, urine yellow yellow Color, Urine LEAH ([facility]) pH,urine 5.0 units 5.0-9.0 pH,urine LEAH ([facility]) specific gravity urine auto 1.002-1.035 Specifi c [place] Urine Auto LEAH ([facility]) protein, urine auto negative negative Protein, Urine A uto LEAH ([facility]) glucose, urine (UA) auto negative negative Glucose, Ur ine (UA) Auto LEAH ([facility]) urobilinogen, urine auto 2.0 mg/dL 0.0-2.0 Above high jose l Urobilinogen, Urine Auto LEAH ([facility]) ketone, urine auto trace negative Above high normal Ketone, Ur ine Auto LEAH ([facility]) bilirubin, urine auto negative negative Bilirubin, Uri ne Auto LEAH ([facility]) leukocyte esterase, urine auto trace negative Above high normal Leukocyte Esterase, Urine Auto LEAH ([facility]) blood, urine blood negative negative Blood, Urine Bloo d LEAH ([facility]) nitrite, urine auto negative negative Nitrite, Urine A uto LEAH ([facility]) bacteria, urine auto negative negative Bacteria, Urine Auto LEAH ([facility]) WBC, urine auto 3 /hpf 0-3 WBC, Urine Auto ATHE NA ([facility]) RBC, urine auto 2 /hpf 0-3 RBC, Urine Auto ATHE NA ([facility]) squamous epithelial cell ur AU 0 /hpf 0-6 Squam ous Epithelial Cell Ur AU LEAH ([facility]) mucus, urine small negative Mucus, Urine LEAH (No [facility]) hyaline cast, urine auto 1 /lpf 0-1 Hyaline Carlo t, Urine Auto LEAH ([facility]) calcium oxalate crystals small none Calcium Oxa late Crystals LEAH ([facility]) ID Date Data Source [id number] 10/06/2020 09:40:00 AM EST LEAH ([facility]) Name Value Range Interpretation Code Description Data Adri rce(s) Supporting Document(s) ID Date Data Source [id number] 10/06/2020 09:40:00 AM EST LEAH ([facility]) Name Value Range Interpretation Code Description Data Adri rce(s) Supporting Document(s) appearance, urine hazy clear Appearance, Urine LEAH ([facility]) pH,urine 5.0 units 5.0-9.0 pH,urine LEAH ([facility]) color, urine yellow yellow Color, Urine LEAH (No [facility]) protein, urine auto negative negative Protein, Urine A uto LEAH ([facility]) ketone, urine auto trace negative Above high normal Ketone, Ur ine Auto LEAH ([facility]) specific gravity urine auto 1.002-1.035 Specifi c [place] Urine Auto LEAH ([facility]) glucose, urine (UA) auto negative negative Glucose, Ur ine (UA) Auto LEAH ([facility]) urobilinogen, urine auto 2.0 mg/dL 0.0-2.0 Above high jose l Urobilinogen, Urine Auto LEAH ([facility]) bilirubin, urine auto negative negative Bilirubin, Uri ne Auto LEAH ([facility]) nitrite, urine auto negative negative Nitrite, Urine A uto LEAH ([facility]) leukocyte esterase, urine auto trace negative Above high normal Leukocyte Esterase, Urine Auto LEAH ([facility]) blood, urine blood negative negative Blood, Urine Bloo d LEAH ([facility]) WBC, urine auto 3 /hpf 0-3 WBC, Urine Auto ATHE NA ([facility]) RBC, urine auto 2 /hpf 0-3 RBC, Urine Auto ATHE NA ([facility]) bacteria, urine auto negative negative Bacteria, Urine Auto LEAH ([facility]) squamous epithelial cell ur AU 0 /hpf 0-6 Squam ous Epithelial Cell Ur AU LEAH ([facility]) mucus, urine small negative Mucus, Urine LEAH ([facility]) calcium oxalate crystals small none Calcium Oxa late Crystals LEAH ([facility]) hyaline cast, urine auto 1 /lpf 0-1 Hyaline Carlo t, Urine Auto LEAH ([facility]) ID Date Data Source [id number] 10/06/2020 09:40:00 AM EST LEAH ([facility]) Name Value Range Interpretation Code Description Data Adri rce(s) Supporting Document(s) ID Date Data Source [id number] 10/06/2020 09:40:00 AM EST LEAH ([facility]) Name Value Range Interpretation Code Description Data Adri rce(s) Supporting Document(s) color, urine yellow yellow Color, Urine LEAH ([facility]) appearance, urine hazy clear Appearance, Urine LEAH ([facility]) pH,urine 5.0 units 5.0-9.0 pH,urine LEAH ([facility]) specific gravity urine auto 1.002-1.035 Specifi c [place] Urine Auto LEAH ([facility]) protein, urine auto negative negative Protein, Urine A uto LEAH ([facility]) urobilinogen, urine auto 2.0 mg/dL 0.0-2.0 Above high jose l Urobilinogen, Urine Auto LEAH ([facility]) ketone, urine auto trace negative Above high normal Ketone, Ur ine Auto LEAH ([facility]) glucose, urine (UA) auto negative negative Glucose, Ur ine (UA) Auto LEAH ([facility]) bilirubin, urine auto negative negative Bilirubin, Uri ne Auto LEAH ([facility]) nitrite, urine auto negative negative Nitrite, Urine A uto LEAH ([facility]) blood, urine blood negative negative Blood, Urine Bloo d LEAH ([facility]) leukocyte esterase, urine auto trace negative Above high normal Leukocyte Esterase, Urine Auto LEAH ([facility]) WBC, urine auto 3 /hpf 0-3 WBC, Urine Auto ATHE NA ([facility]) squamous epithelial cell ur AU 0 /hpf 0-6 Squam ous Epithelial Cell Ur AU LEAH ([facility]) bacteria, urine auto negative negative Bacteria, Urine Auto LEAH ([facility]) RBC, urine auto 2 /hpf 0-3 RBC, Urine Auto ATHE NA ([facility]) calcium oxalate crystals small none Calcium Oxa late Crystals LEAH ([facility]) hyaline cast, urine auto 1 /lpf 0-1 Hyaline Carlo t, Urine Auto LEAH ([facility]) mucus, urine small negative Mucus, Urine LEAH (No [facility]) Procedure Social History No Information Vital Signs ID Date Data Source UNK Name Value Range Interpretation Code Description Data Source(s) Body height 65 [in_i] 65 [in_i] LEAH ([facility]) Diastolic blood pressure 94 mm[Hg] 94 mm[Hg] LEAH ([facility]) Body height 65 [in_i] 65 [in_i] LEAH ([facility]) Body mass index (BMI) [Ratio] 23 kg/m2 23 kg/ m2 LEAH ([facility]) Systolic blood pressure 138 mm[Hg] 138 mm[Hg] Hermilo SNOW ([facility]) Body weight 2210 [oz_av] 2210 [oz_av] LEAH ([facility]) Diastolic blood pressure 94 mm[Hg] 94 mm[Hg] LEAH ([facility]) Body height 65 [in_i] 65 [in_i] LEAH ([facility]) Body mass index (BMI) [Ratio] 23 kg/m2 23 kg/ m2 LEAH ([facility]) Systolic blood pressure 138 mm[Hg] 138 mm[Hg] A [facility] ([facility]) Body weight 2210 [oz_av] 2210 [oz_av] LEAH ([facility]) Diastolic blood pressure 82 mm[Hg] 82 mm[Hg] LEAH ([facility]) Body height 65 [in_i] 65 [in_i] LEAH ([facility]) Systolic blood pressure 122 mm[Hg] 122 mm[Hg] A [facility] ([facility]) Body weight 2288 [oz_av] 2288 [oz_av] LEAH ([facility]) Body mass index (BMI) [Ratio] 23.8 kg/m2 23.8 k g/m2 LEAH ([facility]) Diastolic blood pressure 82 mm[Hg] 82 mm[Hg] LEAH ([facility]) Body height 65 [in_i] 65 [in_i] LEAH ([facility]) Body mass index (BMI) [Ratio] 23.8 kg/m2 23.8 k g/m2 LEAH ([facility]) Systolic blood pressure 122 mm[Hg] 122 mm[Hg] A [facility] ([facility]) Body weight 2288 [oz_av] 2288 [oz_av] LEAH ([facility]) Diastolic blood pressure 82 mm[Hg] 82 mm[Hg] LEAH ([facility]) Body height 65 [in_i] 65 [in_i] LEAH ([facility]) Body mass index (BMI) [Ratio] 23.8 kg/m2 23.8 k g/m2 LEAH ([facility]) Systolic blood pressure 122 mm[Hg] 122 mm[Hg] A [facility] ([facility]) Body weight 2288 [oz_av] 2288 [oz_av] LEAH ([facility]) Body height 65 [in_i] 65 [in_i] LEAH ([facility]) Body mass index (BMI) [Ratio] 23.8 kg/m2 23.8 k g/m2 LEAH ([facility]) Body weight 2288 [oz_av] 2288 [oz_av] LEAH ([facility]) Body height 65 [in_i] 65 [in_i] LEAH ([facility]) Body mass index (BMI) [Ratio] 23.8 kg/m2 23.8 k g/m2 LEAH ([facility]) Body weight 2288 [oz_av] 2288 [oz_av] LEAH ([facility]) Body height 65 [in_i] 65 [in_i] LEAH ([facility]) Body mass index (BMI) [Ratio] 23.8 kg/m2 23.8 k g/m2 LEAH ([facility]) Body weight 2288 [oz_av] 2288 [oz_av] LEAH ([facility]) Body height 65 [in_i] 65 [in_i] LEAH ([facility]) Body mass index (BMI) [Ratio] 23.8 kg/m2 23.8 k g/m2 LEAH ([facility]) Body weight 2288 [oz_av] 2288 [oz_av] LEAH ([facility]) Body height 65 [in_i] 65 [in_i] LEAH ([facility]) Body mass index (BMI) [Ratio] 23.8 kg/m2 23.8 k g/m2 LEAH ([facility]) Body weight 2288 [oz_av] 2288 [oz_av] LEAH ([facility]) Diastolic blood pressure 74 mm[Hg] 74 mm[Hg] LEAH ([facility]) Body mass index (BMI) [Ratio] 23.7 kg/m2 23.7 k g/m2 LEAH ([facility]) Body height 65 [in_i] 65 [in_i] LEAH ([facility]) Systolic blood pressure 115 mm[Hg] 115 mm[Hg] A THENA ([facility]) Body weight 2281.6 [oz_av] 2281.6 [oz_av] ATHEN A ([facility]) Diastolic blood pressure 74 mm[Hg] 74 mm[Hg] LEAH ([facility]) Body height 65 [in_i] 65 [in_i] LEAH ([facility]) Body mass index (BMI) [Ratio] 23.7 kg/m2 23.7 k g/m2 LEAH ([facility]) Body weight 2281.6 [oz_av] 2281.6 [oz_av] ATHEN A ([facility]) Systolic blood pressure 115 mm[Hg] 115 mm[Hg] A [facility] ([facility]) Diastolic blood pressure 74 mm[Hg] 74 mm[Hg] LEAH ([facility]) Body height 65 [in_i] 65 [in_i] LEAH ([facility]) Body mass index (BMI) [Ratio] 23.7 kg/m2 23.7 k g/m2 LEAH ([facility]) Systolic blood pressure 115 mm[Hg] 115 mm[Hg] A THENA ([facility]) Body weight 2281.6 [oz_av] 2281.6 [oz_av] ATHEN A ([facility]) Diastolic blood pressure 74 mm[Hg] 74 mm[Hg] LEAH ([facility]) Body height 65 [in_i] 65 [in_i] LEAH ([facility]) Body mass index (BMI) [Ratio] 23.7 kg/m2 23.7 k g/m2 LEAH ([facility]) Systolic blood pressure 115 mm[Hg] 115 mm[Hg] A THENA ([facility]) Body weight 2281.6 [oz_av] 2281.6 [oz_av] ATHEN A ([facility]) Diastolic blood pressure 74 mm[Hg] 74 mm[Hg] LEAH ([facility]) Body height 65 [in_i] 65 [in_i] LEAH ([facility]) Body mass index (BMI) [Ratio] 23.7 kg/m2 23.7 k g/m2 LEAH ([facility]) Systolic blood pressure 115 mm[Hg] 115 mm[Hg] A SHABNAMA ([facility]) Body weight 2281.6 [oz_av] 2281.6 [oz_av] SERVANDO A ([facility]) Diastolic blood pressure 74 mm[Hg] 74 mm[Hg] LEAH ([facility]) Body height 65 [in_i] 65 [in_i] LEAH ([facility]) Body mass index (BMI) [Ratio] 23.7 kg/m2 23.7 k g/m2 LEAH ([facility]) Systolic blood pressure 115 mm[Hg] 115 mm[Hg] A GWENDOLYN ([facility]) Body weight 2281.6 [oz_av] 2281.6 [oz_av] ATHIMTIAZ A ([facility]) Patient Treatment Plan of Care Planned Activity Planned Date Details Description Data Source (s) Prevail Underwear USE THREE TIMES A DAY FOR INCONTINEN CE 07/30/2021 12:00:00 AM EDT PARKER ([facility]) Prevail Underwear USE THREE TIMES A DAY FOR INCONTINEN CE 07/30/2021 12:00:00 AM EDT LEAH ([facility]) Prevail Underwear USE THREE TIMES A DAY FOR INCONTINEN CE 07/30/2021 12:00:00 AM EDT LEAH ([facility]) ziprasidone 60 MG Oral Capsule LEAH ([facility]) Sulfamethoxazole 800 MG / Trimethoprim 160 MG Oral Tablet LEAH ([facility]) Prednisone 20 MG Oral Tablet LEAH ([facility]) Mirtazapine 15 MG Oral Tablet LEAH ([facility]) Metformin hydrochloride 500 MG Oral Tablet LEAH ([facility]) Ciprofloxacin 250 MG Oral Tablet LEAH ([facility]) Azithromycin 250 MG Oral Tablet LEAH ([facility]) ziprasidone 60 MG Oral Capsule LEAH ([facility]) Sulfamethoxazole 800 MG / Trimethoprim 160 MG Oral Tablet LEAH ([facility]) Prednisone 20 MG Oral Tablet LEAH ([facility]) Mirtazapine 15 MG Oral Tablet LEAH ([facility]) Metformin hydrochloride 500 MG Oral Tablet LEAH ([facility]) Ciprofloxacin 250 MG Oral Tablet LEAH ([facility]) Azithromycin 250 MG Oral Tablet LEAH ([facility]) ziprasidone 60 MG Oral Capsule LEAH ([facility]) Prednisone 20 MG Oral Tablet LEAH ([facility]) Mirtazapine 15 MG Oral Tablet LEAH ([facility]) Metformin hydrochloride 500 MG Oral Tablet LEAH ([facility]) Ciprofloxacin 250 MG Oral Tablet LEAH ([facility]) Azithromycin 250 MG Oral Tablet LEAH ([facility]) Metformin hydrochloride 500 MG Oral Tablet LEAH ([facility]) Azithromycin 250 MG Oral Tablet LEAH ([facility]) Metformin hydrochloride 500 MG Oral Tablet LEAH ([facility]) Azithromycin 250 MG Oral Tablet LEAH ([facility]) Metformin hydrochloride 500 MG Oral Tablet LEAH ([facility]) Azithromycin 250 MG Oral Tablet LEAH ([facility])
--- OUTSIDE RECORDS SUMMARY | 2021-10-05 04:56 | CCD ---
Author Author [facility] Organization [facility] Address Unknown Phone Unavailable Care Team Providers Care Rod Hanger Name Role Phone Jh Mccray MD Unavailable [...] Unavailable Jh Mccray MD Unavailable Unavailable Jh Mcrcay MD Unavailable Unavailable Jh Mccray MD Unavailable [...] Unavailable Noragong, Nya Unavailable Unavailable Clay, Ting INSPECTOR HAIRSPRING TRUING INSPECTOR HAIRSPRING TRUING Unavailable Unavailable Lala Deshpaned MD Unavailable Unavailable Lala Deshpande MD Unavailable Unavailable Lala Deshpande MD Unavailable Unavailable Lala Deshpande MD Unavailable Unavailable Lala Deshpande MD Unavailable Unavailable Lala Deshpande MD Unavailable Unavailable Lala Deshpande MD Unavailable Unavailable Lala Deshpande MD Unavailable Unavailable Lala Deshpande MD Unavailable Unavailable Berg[place], A Ting INSPECTOR HAIRSPRING TRUING Unavailable Unavailable [place], A Ting INSPECTOR HAIRSPRING TRUING Unavailable Unavailable [place], A Ting INSPECTOR HAIRSPRING TRUING Unavailable Unavailable [place], A Ting INSPECTOR HAIRSPRING TRUING Unavailable Unavailable [place], A Ting INSPECTOR HAIRSPRING TRUING Unavailable Unavailable [place], A Ting INSPECTOR HAIRSPRING TRUING Unavailable Unavailable [place], A Ting INSPECTOR HAIRSPRING TRUING Unavailable Unavailable [place], A Ting INSPECTOR HAIRSPRING TRUING Unavailable Unavailable [place], A Ting INSPECTOR HAIRSPRING TRUING Unavailable Unavailable [place], A Ting INSPECTOR HAIRSPRING TRUING Unavailable Unavailable [place], A Ting INSPECTOR HAIRSPRING TRUING Unavailable Unavailable [place], A Ting INSPECTOR HAIRSPRING TRUING Unavailable Unavailable [place], A Ting INSPECTOR HAIRSPRING TRUING Unavailable Unavailable [place], A Ting INSPECTOR HAIRSPRING TRUING Unavailable Unavailable Bergland, A Ting INSPECTOR HAIRSPRING TRUING Unavailable Unavailable Bergland, A Ting INSPECTOR HAIRSPRING TRUING Unavailable Unavailable Bergland, A Ting INSPECTOR HAIRSPRING TRUING Unavailable Unavailable Bergland, A Ting INSPECTOR HAIRSPRING TRUING Unavailable Unavailable [place], A Ting INSPECTOR HAIRSPRING TRUING Unavailable Unavailable Berg[place], A Ting INSPECTOR HAIRSPRING TRUING Unavailable Unavailable [place], A Ting INSPECTOR HAIRSPRING TRUING Unavailable Unavailable Berg[place], A Ting INSPECTOR HAIRSPRING TRUING Unavailable Unavailable [place], A Ting INSPECTOR HAIRSPRING TRUING Unavailable Unavailable [place], A Ting INSPECTOR HAIRSPRING TRUING Unavailable Unavailable [place], A Ting INSPECTOR HAIRSPRING TRUING Unavailable Unavailable [place], A Ting INSPECTOR HAIRSPRING TRUING Unavailable Unavailable [place], A Ting INSPECTOR HAIRSPRING TRUING Unavailable Unavailable [place], A Ting INSPECTOR HAIRSPRING TRUING Unavailable Unavailable [place], A Ting INSPECTOR HAIRSPRING TRUING Unavailable Unavailable [place], A Ting INSPECTOR HAIRSPRING TRUING Unavailable Unavailable Hermilo Williamson INSPECTOR HAIRSPRING TRUING Unavailable Unavailable Re-disclosure Warning The records that [...] is protected by Article 27-F of the [facility] Public Health law. If you continue you may have access to information: Regarding HIV / AIDS; Provided by facilities licensed or operated by the [facility] Office of Mental Health; or Provided by the [facility] Office for People With Developmental Disabilities. If such information is present, then the following [facility] mandated warning applies: This information has [...] law may result in a fine or [place] health care [place] sentence or both. A general authorization for the release of medical or other information is NOT sufficient authorization for further disc losure. Allergies and Adverse Reactions Type Description Substance Reaction Status Data Source(s ) Allergy to substance Allergy to substance Allergy to substance [place] ([facility]) Allergy to substance Allergy to substance Allergy to substance [facility] ([facility]) Allergy to substance Allergy to substance Allergy to substance [facility] ([facility]) Encounters Encounter Providers Location Date Indications Data Source(s ) Jerald Mccray MD: [address] [place] [phone], Ph. Attender: Jerald Mccray MD [facility] Medical 09/03/2021 12:00:00 AM EST [place] ([facility]) Jerald Mccray MD: [address] [place] [address], Ph. Attender: Jerald Mccray MD [facility] Medical 09/03/2021 12:00:00 AM EST [facility] ([facility]) EMILIANO ClemonsP: [address] [place] [address], Ph. Attender: Nya Razo [facility] Medical 08/31/2021 12:00:00 AM EST [facility] ([facility]) MILAGRO Clemons: [address] [place] [address], Ph. Attender: Nya Razo [facility] Medical 08/31/2021 12:00:00 AM EST [facility] ([facility]) MILAGRO Clemons: [address] [place] [address], Ph. Attender: Nya Razo [facility] Medical 07/30/2021 12:00:00 AM EDT [facility] ([facility]) MILAGRO Clemons: [address] [place] [address], Ph. Attender: Nya Razo [facility] Medical 07/30/2021 12:00:00 AM EDT [facility] ([facility]) MILAGRO Clemons: [address] [place] [address], Ph. Attender: Nya Razo [facility] Medical 07/30/2021 12:00:00 AM EDT [place] ([facility]) Jerald Mccray MD: [address] [place] [address], Ph. Attender: Jerald Mccray MD [facility] Medical 12/17/2020 12:00:00 AM EST [place] ([facility]) Jerald Mccray MD: [address] [place] [address], Ph. Attender: Jerald Mccray MD [facility] Medical 12/17/2020 12:00:00 AM EST [facility] ([facility]) Jerald Mccray MD: [address] [place] [address], Ph. Attender: Jerald Mccray MD [facility] Medical 12/17/2020 12:00:00 AM EST [place] ([facility]) Jerald Mccray MD: [address] [place] [address], Ph. Attender: Jerald Mccray MD [facility] Medical 12/17/2020 12:00:00 AM EST [place] ([facility]) Christianne Deshpande MD: [address] [place] [address], Ph. Attender: Christianne Deshpande MD [facility] Medical 11/17/2020 12:00:00 AM EST [place] ([facility]) Christianne Deshpande MD: [address] [place] [address], Ph. Attender: Christianne Deshpande MD [facility] Medical 11/17/2020 12:00:00 AM EST [place] ([facility]) Christianne Deshpande MD: [address] [place] [address], Ph. Attender: Christianne Deshpande MD [facility] Medical 11/17/2020 12:00:00 AM EST [place] ([facility]) Christianne Deshpande MD: [address], [place] [address], Ph. Attender: Christianne Deshpande MD [facility] Medical 11/17/2020 12:00:00 AM EST [place] ([facility]) Christianne Deshpande MD: [address], [place] [address], Ph. Attender: Christianne Deshpande MD [facility] Medical 11/17/2020 12:00:00 AM EST [place] ([facility]) [facility] [address], [place] [address], Ph. Attender: Ting Williamson [facility] Medical 10/06/2020 12:00:00 AM EST [place] ([facility]) RADHA Patel: [address], [place] [address], Ph. Attender: Ting Williamson [facility] Medical 10/06/2020 12:00:00 AM EST [place] ([facility]) RADHA Patel: [address], [place] [address], Ph. Attender: Ting Williamson [facility] Medical 10/06/2020 12:00:00 AM EST [place] ([facility]) RADHA Patel: [address], [place] [address], Ph. Attender: Ting Williamson [facility] Medical 10/06/2020 12:00:00 AM EST [place] ([facility]) RADHA PatelBC: [address], [place] [address], Ph. Att[facility]: [facility] 10/06/2020 12:00:00 AM EST [facility] ([facility]) [facility] [address], [place] [address], Ph. Attender: Ting [facility] Medical 10/06/2020 12:00:00 AM EST [place] ([facility]) Outpatient Attender: [place] HUMPHREY 08/15/2020 01:25:00 P M EDT [facility] Immunizations Vaccine Date Status Description Data Source(s) COVID-19, mRNA, LNP-S, PF, 100 mcg/0.5 mL dose (Modern a) 09/03/2021 12:53:58 PM EST completed .5 mL [place] ([facility]) New in 2011. IIV4 09/03/2021 11:09:53 AM EST completed 09/03/20 21 [place] ([facility]) COVID-19 VACCINE Moderna 09/03/2021 12:00:00 AM EST completed [facility] Vaccine Series Complete: YESThis Data wa s Submitted to [facility] Via [facility]. COVID-19, mRNA, LNP-S, PF, 100 mcg/0.5 mL dose (Modern a) 12/17/2020 04:53:27 PM EST completed .5 mL [place] ([facility]) COVID-19, mRNA, LNP-S, PF, 100 mcg/0.5 mL dose 12/17/2020 04 :53:27 PM EST completed .5 mL [place] ([facility]) COVID-19, mRNA, LNP-S, PF, 100 mcg/0.5 mL dose 12/17/2020 04 :53:27 PM EST completed .5 mL [place] ([facility]) COVID-19, mRNA, LNP-S, PF, 100 mcg/0.5 mL dose 12/17/2020 04 :53:27 PM EST completed .5 mL [place] ([facility]) COVID-19 VACCINE Moderna 12/17/2020 12:00:00 AM EST completed [facility] Vaccine Series Complete: NOThis Data was Submitted to [facility] Via SwitchNote. New in 2011. IIV4 10/06/2020 10:40:00 AM EST completed .5 mL [place] ([facility]) New in 2011. IIV4 10/06/2020 10:40:00 AM EST completed .5 mL [place] ([facility]) New in 2011. IIV4 10/06/2020 10:40:00 AM EST completed .5 mL [place] ([facility]) New in 2011. IIV4 10/06/2020 10:40:00 AM EST completed .5 mL [place] ([facility]) New in 2011. IIV4 10/06/2020 10:40:00 AM EST completed .5 mL [place] ([facility]) New in 2011. IIV4 10/06/2020 10:40:00 AM EST completed .5 mL [place] ([facility]) Medications Medication Brand Name Start Date Product Form Dose Route Admi nistrative Instructions Pharmacy Instructions Status Indications Reaction Description Data Source(s) Prevail Underwear USE THREE TIMES A DAY FOR INCONTINENCE [id number] 07/30/2021 12:00:00 AM EDT completed Preva il Underwear [place] ([facility]) Prevail Underwear USE THREE TIMES A DAY FOR INCONTINENCE [id number] 07/30/2021 12:00:00 AM EDT completed Preva il Underwear [place] ([facility]) Prevail Underwear USE THREE TIMES A DAY FOR INCONTINENCE [id number] 07/30/2021 12:00:00 AM EDT completed Preva il Underwear [place] ([facility]) ziprasidone 60 MG Oral Capsule ziprasido ne 60 mg capsule TAKE ONE CAPSULE BY MOUTH TWO TIMES A DAY DIRECTED ziprasidone 60 mg capsule TAKE ONE CAPSU LE BY MOUTH TWO TIMES A DAY DIRECTED comp leted ziprasidone 60 MG Oral Capsule [place] ([facility]) Mirtazapine 15 MG Oral Tablet mirtazapin e 15 mg tablet TAKE ONE TABLET BY MOUTH AT BEDTIME mirtazapine 15 mg tablet TAKE ONE TABLET BY MOUTH AT BEDTIME completed mirtazapine 15 MG Oral Ta blet [place] ([facility]) Prednisone 20 MG Oral Tablet prednisone 20 mg tablet TAKE ONE TABLET BY MOUTH EVERY DAY FOR 5 DAYS prednisone 20 mg tablet TAKE ONE TABLET BY MOUTH EVERY DAY FOR 5 DAYS completed prednisone 20 MG Oral Tablet [place] ([facility]) Azithromycin 250 MG Oral Tablet azithrom ycin 250 mg tablet TAKE TWO TABLETS BY MOUTH AT ONCE ON THE FIRST DAY THEN TAKE ONE DAILY THEREAFTER azithromycin 250 mg tablet TAKE TWO TABLETS BY MOUTH AT ONCE ON THE FIRST DAY THEN TAKE ONE DAILY THEREAFTER completed azithromyci n 250 MG Oral Tablet [place] ([facility]) Azithromycin 250 MG Oral Tablet azithrom ycin 250 mg tablet TAKE TWO TABLETS BY MOUTH AT ONCE ON THE FIRST DAY THEN TAKE ONE DAILY THEREAFTER azithromycin 250 mg tablet TAKE TWO TABLETS BY MOUTH AT ONCE ON THE FIRST DAY THEN TAKE ONE DAILY THEREAFTER completed azithromyci n 250 MG Oral Tablet [place] ([facility]) Metformin hydrochloride 500 MG Oral Tabl et metformin 500 mg tablet TAKE ONE TABLET BY MOUTH EVERY DAY metformin 500 mg tablet TAKE ONE TABLET BY MOUTH EVERY DAY completed metformin hydroc hloride 500 MG Oral Tablet [place] ([facility]) Metformin hydrochloride 500 MG Oral Tabl et metformin 500 mg tablet TAKE ONE TABLET BY MOUTH EVERY DAY metformin 500 mg tablet TAKE ONE TABLET BY MOUTH EVERY DAY completed metformin hydroc hloride 500 MG Oral Tablet [place] ([facility]) Azithromycin 250 MG Oral Tablet azithrom ycin 250 mg tablet TAKE TWO TABLETS BY MOUTH AT ONCE ON THE FIRST DAY THEN TAKE ONE DAILY THEREAFTER azithromycin 250 mg tablet TAKE TWO TABLETS BY MOUTH AT ONCE ON THE FIRST DAY THEN TAKE ONE DAILY THEREAFTER completed azithromyci n 250 MG Oral Tablet [place] ([facility]) Metformin hydrochloride 500 MG Oral Tabl et metformin 500 mg tablet TAKE ONE TABLET BY MOUTH EVERY DAY metformin 500 mg tablet TAKE ONE TABLET BY MOUTH EVERY DAY completed metformin hydroc hloride 500 MG Oral Tablet [place] ([facility]) ziprasidone 60 MG Oral Capsule ziprasido ne 60 mg capsule TAKE ONE CAPSULE BY MOUTH TWO TIMES A DAY DIRECTED ziprasidone 60 mg capsule TAKE ONE CAPSU LE BY MOUTH TWO TIMES A DAY DIRECTED comp leted ziprasidone 60 MG Oral Capsule [place] ([facility]) Ciprofloxacin 250 MG Oral Tablet ciprofl oxacin 250 mg tablet TAKE ONE TABLET BY MOUTH TWICE A DAY DIRECTED FOR 10 DAYS ciprofloxacin 250 mg tablet TAKE ONE TABLET BY MOUTH TWICE A DAY DIRECTED FOR 10 DAYS completed ciprofloxacin 250 MG Oral Tablet [place] ([facility]) Azithromycin 250 MG Oral Tablet azithrom ycin 250 mg tablet TAKE TWO TABLETS BY MOUTH AT ONCE ON THE FIRST DAY THEN TAKE ONE DAILY THEREAFTER azithromycin 250 mg tablet TAKE TWO TABLETS BY MOUTH AT ONCE ON THE FIRST DAY THEN TAKE ONE DAILY THEREAFTER completed azithromyci n 250 MG Oral Tablet [place] ([facility]) Metformin hydrochloride 500 MG Oral Tabl et metformin 500 mg tablet TAKE ONE TABLET BY MOUTH EVERY DAY metformin 500 mg tablet TAKE ONE TABLET BY MOUTH EVERY DAY completed metformin hydroc hloride 500 MG Oral Tablet [place] ([facility]) Mirtazapine 15 MG Oral Tablet mirtazapin e 15 mg tablet TAKE ONE TABLET BY MOUTH AT BEDTIME mirtazapine 15 mg tablet TAKE ONE TABLET BY MOUTH AT BEDTIME completed mirtazapine 15 MG Oral Ta blet [place] ([facility]) Metformin hydrochloride 500 MG Oral Tabl et metformin 500 mg tablet TAKE ONE TABLET BY MOUTH EVERY DAY metformin 500 mg tablet TAKE ONE TABLET BY MOUTH EVERY DAY completed metformin hydroc hloride 500 MG Oral Tablet [place] ([facility]) Prednisone 20 MG Oral Tablet prednisone 20 mg tablet TAKE ONE TABLET BY MOUTH EVERY DAY FOR 5 DAYS prednisone 20 mg tablet TAKE ONE TABLET BY MOUTH EVERY DAY FOR 5 DAYS completed prednisone 20 MG Oral Tablet [place] ([facility]) Mirtazapine 15 MG Oral Tablet mirtazapin e 15 mg tablet TAKE ONE TABLET BY MOUTH AT BEDTIME mirtazapine 15 mg tablet TAKE ONE TABLET BY MOUTH AT BEDTIME completed mirtazapine 15 MG Oral Ta blet [place] ([facility]) Sulfamethoxazole 800 MG / Trimethoprim 1 60 MG Oral Tablet sulfamethoxazole 800 mg-trimethoprim 160 mg tablet TAKE ONE TABLET BY MOUTH EVERY 12 HOURS sulfamethoxazole 800 mg-trimethoprim 160 mg tablet TAKE ONE TABLET BY MOUTH EVERY 12 HOURS completed sulfamethoxazole 800 MG / trimethoprim 160 MG Oral Tablet [place] ([facility]) Sulfamethoxazole 800 MG / Trimethoprim 1 60 MG Oral Tablet sulfamethoxazole 800 mg-trimethoprim 160 mg tablet TAKE ONE TABLET BY MOUTH EVERY 12 HOURS sulfamethoxazole 800 mg-trimethoprim 160 mg tablet TAKE ONE TABLET BY MOUTH EVERY 12 HOURS completed sulfamethoxazole 800 MG / trimethoprim 160 MG Oral Tablet [place] ([facility]) Azithromycin 250 MG Oral Tablet azithrom ycin 250 mg tablet TAKE TWO TABLETS BY MOUTH AT ONCE ON THE FIRST DAY THEN TAKE ONE DAILY THEREAFTER azithromycin 250 mg tablet TAKE TWO TABLETS BY MOUTH AT ONCE ON THE FIRST DAY THEN TAKE ONE DAILY THEREAFTER completed azithromyci n 250 MG Oral Tablet [place] ([facility]) Ciprofloxacin 250 MG Oral Tablet ciprofl oxacin 250 mg tablet TAKE ONE TABLET BY MOUTH TWICE A DAY DIRECTED FOR 10 DAYS ciprofloxacin 250 mg tablet TAKE ONE TABLET BY MOUTH TWICE A DAY DIRECTED FOR 10 DAYS completed ciprofloxacin 250 MG Oral Tablet [place] ([facility]) Prednisone 20 MG Oral Tablet prednisone 20 mg tablet TAKE ONE TABLET BY MOUTH EVERY DAY FOR 5 DAYS prednisone 20 mg tablet TAKE ONE TABLET BY MOUTH EVERY DAY FOR 5 DAYS completed prednisone 20 MG Oral Tablet [place] ([facility]) ziprasidone 60 MG Oral Capsule ziprasido ne 60 mg capsule TAKE ONE CAPSULE BY MOUTH TWO TIMES A DAY DIRECTED ziprasidone 60 mg capsule TAKE ONE CAPSU LE BY MOUTH TWO TIMES A DAY DIRECTED comp leted ziprasidone 60 MG Oral Capsule [place] ([facility]) Ciprofloxacin 250 MG Oral Tablet ciprofl oxacin 250 mg tablet TAKE ONE TABLET BY MOUTH TWICE A DAY DIRECTED FOR 10 DAYS ciprofloxacin 250 mg tablet TAKE ONE TABLET BY MOUTH TWICE A DAY DIRECTED FOR 10 DAYS completed ciprofloxacin 250 MG Oral Tablet [place] ([facility]) Metformin hydrochloride 500 MG Oral Tabl et metformin 500 mg tablet TAKE ONE TABLET BY MOUTH EVERY DAY metformin 500 mg tablet TAKE ONE TABLET BY MOUTH EVERY DAY completed metformin hydroc hloride 500 MG Oral Tablet [place] ([facility]) Azithromycin 250 MG Oral Tablet azithrom ycin 250 mg tablet TAKE TWO TABLETS BY MOUTH AT ONCE ON THE FIRST DAY THEN TAKE ONE DAILY THEREAFTER azithromycin 250 mg tablet TAKE TWO TABLETS BY MOUTH AT ONCE ON THE FIRST DAY THEN TAKE ONE DAILY THEREAFTER completed azithromyci n 250 MG Oral Tablet [place] ([facility]) Insurance Providers Payer name Policy type / Coverage type Policy ID Covered libertarian ID Covered libertarian's relationship to [place] Policy [place] Plan Information [id number] A MEDICARE [id number] SP [id number] A Medicare P [id number] S [id number] A Medicaid S [id number] Medicaid S [id number] S [id number] Medicaid S [id number] S [id number] Medicare Wrap S [id number] S [id number] [employer] P [id number] S [id number] Medicare O [id number] S [id number] A MEDICARE COMPLETE [id number] SP [id number] [employer] P [id number] S [id number] Medicaid S [id number] [employer] P [id number] S [id number] Medicaid S [id number] S [id number] [employer] P [id number] S [id number] Medicaid S [id number] Medicaid S [id number] S [id number] A Medicare P [id number] S [id number] A Medicare Wrap O [id number] S [id number] [employer] P [id number] S [id number] [employer] P [id number] S [id number] Medicaid S [id number] [employer] P [id number] S [id number] Medicaid S [id number] S [id number] [facility] MCDHMO [id number] SP [id number] MEDICAID [id number] MEDICARE COMPLETE [id number] SP [id number] SELF PAY UNAVAILABLE SP UNAVAILA BLE EMED[place] [id number] SP [id number] [employer] P [id number] S [id number] Medicare Wrap O [id number] S [id number] [facility] [id number] Problems, Conditions, and Diagnoses Code Display Name Description Problem Type Effective Dates Data Source(s) [id number] Urinary tract infectious disease Urinary Tract I nfectious Disease Problem 07/30/2021 12:00:00 AM EDT [place] ([facility]) [id number] Urinary tract infectious disease Urinary Tract I nfectious Disease Problem 07/30/2021 12:00:00 AM EDT [place] ([facility]) [id number] Type II diabetes mellitus uncontrolled T ype II Diabetes Mellitus Uncontrolled Problem 10/06/2020 12:00:00 AM EST [place] ([facility]) [id number] Type II diabetes mellitus uncontrolled T ype II Diabetes Mellitus Uncontrolled Problem 10/06/2020 12:00:00 AM EST [place] ([facility]) [id number] Type II diabetes mellitus uncontrolled T ype II Diabetes Mellitus Uncontrolled Problem 10/06/2020 12:00:00 AM EST [place] ([facility]) [id number] Type II diabetes mellitus uncontrolled T ype II Diabetes Mellitus Uncontrolled Problem 10/06/2020 12:00:00 AM EST [place] ([facility]) [id number] Type II diabetes mellitus uncontrolled T ype II Diabetes Mellitus Uncontrolled Problem 10/06/2020 12:00:00 AM EST [place] ([facility]) [id number] Type II diabetes mellitus uncontrolled T ype II Diabetes Mellitus Uncontrolled Problem 10/06/2020 12:00:00 AM EST [place] ([facility]) [id number] Severe recurrent major depression withou t psychotic features Severe Recurrent Major Depression without Psychotic Features Problem 08/14/2020 12:00:00 AM EDT [place] ([facility]) [id number] Severe recurrent major depression withou t psychotic features Severe Recurrent Major Depression without Psychotic Features Problem 08/14/2020 12:00:00 AM EDT [place] ([facility]) [id number] Severe recurrent major depression withou t psychotic features Severe Recurrent Major Depression without Psychotic Features Problem 08/14/2020 12:00:00 AM EDT [place] ([facility]) [id number] Severe recurrent major depression withou t psychotic features Severe Recurrent Major Depression without Psychotic Features Problem 08/14/2020 12:00:00 AM EDT [place] ([facility]) [id number] Severe recurrent major depression withou t psychotic features Severe Recurrent Major Depression without Psychotic Features Problem 08/14/2020 12:00:00 AM EDT [place] ([facility]) [id number] Severe recurrent major depression withou t psychotic features Severe Recurrent Major Depression without Psychotic Features Problem 08/14/2020 12:00:00 AM EDT [place] ([facility]) [id number] Clinical finding Clinical Finding Problem 08/07/2020 05 :29:08 PM EDT [place] ([facility]) [id number] Hypertensive disorder Hypertensive Disorder Problem 08/07/2020 05:29:08 PM EDT [place] ([facility]) [id number] Depressive disorder Depressive Disorder Problem 1 05:29:08 PM EDT [place] ([facility]) [id number] Hyperlipidemia Hyperlipidemia Problem 08/07/2020 05:29: 08 PM EDT [place] ([facility]) [id number] Finding of esophagus Finding of Esophagus Problem 08/07/2020 05:29:08 PM EDT [facility] ([facility] [facility]) [id number] Clinical finding Clinical Finding Problem 08/07/2020 05 :29:08 PM EDT [facility] ([facility]) [id number] Hypertensive disorder Hypertensive Disorder Problem 08/07/2020 05:29:08 PM EDT [facility] ([facility] er) [id number] Depressive disorder Depressive Disorder Problem 1 05:29:08 PM EDT [facility] ([facility] er) [id number] Hyperlipidemia Hyperlipidemia Problem 08/07/2020 05:29: 08 PM EDT [facility] ([facility]) [id number] Finding of esophagus Finding of Esophagus Problem 08/07/2020 05:29:08 PM EDT [place] ([facility] er) [id number] Clinical finding Clinical Finding Problem 08/07/2020 05 :29:08 PM EDT [facility] ([facility]) [id number] Hypertensive disorder Hypertensive Disorder Problem 08/07/2020 05:29:08 PM EDT [place] ([facility]) [id number] Depressive disorder Depressive Disorder Problem 1 05:29:08 PM EDT [place] ([facility]) [id number] Hyperlipidemia Hyperlipidemia Problem 08/07/2020 05:29: 08 PM EDT [facility] ([facility]) [id number] Finding of esophagus Finding of Esophagus Problem 08/07/2020 05:29:08 PM EDT [place] ([facility] er) [id number] Clinical finding Clinical Finding Problem 08/07/2020 05 :29:08 PM EDT [facility] ([facility]) [id number] Hypertensive disorder Hypertensive Disorder Problem 08/07/2020 05:29:08 PM EDT [place] ([facility]) [id number] Depressive disorder Depressive Disorder Problem 1 05:29:08 PM EDT [facility] ([facility]) [id number] Hyperlipidemia Hyperlipidemia Problem 08/07/2020 05:29: 08 PM EDT [facility] ([facility]) [id number] Finding of esophagus Finding of Esophagus Problem 08/07/2020 05:29:08 PM EDT [facility] ([facility]) [id number] Clinical finding Clinical Finding Problem 08/07/2020 05 :29:08 PM EDT [facility] ([facility]) [id number] Hypertensive disorder Hypertensive Disorder Problem 08/07/2020 05:29:08 PM EDT [facility] ([facility]) [id number] Depressive disorder Depressive Disorder Problem 1 05:29:08 PM EDT [facility] ([facility]) [id number] Hyperlipidemia Hyperlipidemia Problem 08/07/2020 05:29: 08 PM EDT [facility] ([facility]) [id number] Clinical finding Clinical Finding Problem 08/07/2020 05 :29:08 PM EDT [facility] ([facility]) [id number] Hypertensive disorder Hypertensive Disorder Problem 08/07/2020 05:29:08 PM EDT [facility] ([facility]) [id number] Depressive disorder Depressive Disorder Problem 1 05:29:08 PM EDT [facility] ([facility]) [id number] Hyperlipidemia Hyperlipidemia Problem 08/07/2020 05:29: 08 PM EDT [facility] ([facility]) [id number] Finding of menstrual bleeding Finding of Menstrual Ble eding Problem 09/10/2019 12:00:00 AM EST - 08/31/2021 12:00:00 AM EST [facility] ([facility]) [id number] Finding of menstrual bleeding Finding of Menstrual Ble eding Problem 09/10/2019 12:00:00 AM EST - 08/31/2021 12:00:00 AM EST [facility] ([facility]) [id number] Clinical finding Clinical Finding Problem 018 12:00:00 AM EDT - 08/31/2021 12:00:00 AM EST [facility] ([facility]) [id number] Clinical finding Clinical Finding Problem 018 12:00:00 AM EDT - 08/31/2021 12:00:00 AM EST [facility] ([facility]) [id number] Clinical finding Clinical Finding Problem 014 12:00:00 AM EDT - 08/31/2021 12:00:00 AM EST [place] ([facility]) [id number] Clinical finding Clinical Finding Problem 014 12:00:00 AM EDT - 08/31/2021 12:00:00 AM EST [place] ([facility]) [id number] Finding of esophagus Finding of Esophagus Problem 08/31/2021 12:00:00 AM EST [facility] ([facility]) [id number] Finding of esophagus Finding of Esophagus Problem 08/31/2021 12:00:00 AM EST [facility] ([facility]) Surgeries/Procedures No Information Results ID Date Data Source [id number] 07/30/2021 12:49:00 PM EDT [place] ([facility]) Name Value Range Interpretation Code Description Data Adri rce(s) Supporting Document(s) Bacteria identified in Urine by Culture see note Culture, Urine, Routine [place] ([facility]) ID Date Data Source [id number] 07/30/2021 12:49:00 PM EDT [place] ([facility]) Name Value Range Interpretation Code Description Data Adri rce(s) Supporting Document(s) Chlamydia trachomatis rRNA [Presence] in Unspecified specimen by Probe and target amplification method tnp Chla mydia Trachomatis RNA Tma, Urogenital (Refl) [facility]) ID Date Data Source [id number] 07/30/2021 12:49:00 PM EDT [facility]) Name Value Range Interpretation Code Description Data Adir rce(s) Supporting Document(s) Hemoglobin A1c/Hemoglobin.total in Blood 5.8 %_of_total_HGB <5.7 Above high normal Hemoglobin a1C [facility] er) ID Date Data Source [id number] 07/30/2021 12:49:00 PM EDT [facility]) Name Value Range Interpretation Code Description Data Adri rce(s) Supporting Document(s) Thyrotropin [Units/volume] in Serum or Plasma 1.29 mIU/L 0.40-4.5 0 TSH W/reflex to FT4 [facility]) ID Date Data Source [id number] 07/30/2021 12:49:00 PM EDT [facility]) Name Value Range Interpretation Code Description Data Adri rce(s) Supporting Document(s) Leukocytes [#/volume] in Blood by Automated count 8.5 thousand/uL 3 .8-10.8 White Blood Cell Count [place] ([facility]) Hemoglobin [Mass/volume] in Blood 14.6 g/dL 13.2-17.1 He moglobin [place] ([facility]) Erythrocytes [#/volume] in Blood by Automated count 4.63 million/uL 4.20-5.80 Red Blood Cell Count [place] ([facility]) Hematocrit [Volume Fraction] of Blood by Automated count 41.9 % 38.5-50.0 Hematocrit [place] ([facility]) Erythrocyte mean corpuscular volume [Entitic volume] by Auto mated count 90.5 fL 80.0-100.0 Mcv [facility] ([facility]) Erythrocyte mean corpuscular hemoglobin [Entitic mass] by Automated count 31.5 pg 27.0-33.0 Mch [place] ([facility]) Erythrocyte distribution width [Ratio] by Automated count 12.4 % 11.0-15.0 Rdw [facility] ([facility]) Erythrocyte mean corpuscular hemoglobin concentration [Mass/volume] by Automated count 34.8 g/dL 32.0-36.0 Mchc [facility] ([facility]) Platelets [#/volume] in Blood by Automated count 253 thousand/uL 14 0-400 Platelet Count [place] ([facility]) Platelet mean volume [Entitic volume] in Blood by Eliezer 9.8 fL 7.5-12.5 Mpv [place] ([facility]) Neutrophils [#/volume] in Blood by Automated count 6146 cells/uL 15 00-7800 Absolute Neutrophils [place] ([facility]) Lymphocytes [#/volume] in Blood by Automated count 1479 cells/uL 85 0-3900 Absolute Lymphocytes [place] ([facility]) Monocytes [#/volume] in Blood by Automated count 655 cells/uL 200-9 50 Absolute Monocytes [place] ([facility]) Eosinophils [#/volume] in Blood by Automated count 162 cells/uL 15- 500 Absolute Eosinophils [place] ([facility]) Neutrophils/100 leukocytes in Blood by Automated count 72.3 % 38-80 Neutrophils [place] ([facility]) Basophils [#/volume] in Blood by Automated count 60 cells/uL 0-200 Absolute Basophils [place] ([facility]) Monocytes/100 leukocytes in Blood by Automated count 7.7 % 0-13 Monocytes [place] ([facility]) Lymphocytes/100 leukocytes in Blood by Automated count 17.4 % 15-49 Lymphocytes [place] ([facility]) Eosinophils/100 leukocytes in Blood by Automated count 1.9 % 0-8 Eosinophils [place] ([facility]) Basophils/100 leukocytes in Blood by Automated count 0.7 % 0-2 [facility] ID Date Data Source [id number] 07/30/2021 12:49:00 PM EDT [place] ([facility]) Name Value Range Interpretation Code Description Data Adri rce(s) Supporting Document(s) Glucose [Mass/volume] in Serum or Plasma 103 mg/dL 65-99 Above high normal Glucose [place] ([facility]) Creatinine [Mass/volume] in Serum or Plasma 0.95 mg/dL 0.70-1.18 Creatinine [place] ([facility]) Urea nitrogen [Mass/volume] in Serum or Plasma 19 mg/dL 7-25 Urea Nitrogen (BUN) [place] ([facility]) Glomerular filtration rate/1.73 sq M.pre dicted among blacks [Volume Rate/Area] in Serum, Plasma or Blood by Creatinine-based formula (CKD-EPI) 92 mL/min/1.73m2 > or = 60 eGFR [place] ([facility]) Glomerular filtration rate/1.73 sq M.pre dicted among non-blacks [Volume Rate/Area] in Serum, Plasma or Blood by Creatinine-based formula (CKD-EPI) 80 mL/min/1.73m2 > or = 60 eGFR Non-afr. [place] ([facility]) Urea nitrogen/Creatinine [Mass Ratio] in Serum or Plasma not applic able 6-22 BUN/creatinine Ratio [place] ([facility]) Sodium [Moles/volume] in Serum or Plasma 140 mmol/L 135-146 Sodium [place] ([facility]) Potassium [Moles/volume] in Serum or Plasma 4.6 mmol/L 3.5-5.3 Potassium [place] ([facility]) Chloride [Moles/volume] in Serum or Plasma 107 mmol/L 98-110 Chloride [place] ([facility]) Carbon dioxide, total [Moles/volume] in Serum or Plasma 27 mmol/L 20-32 Carbon Dioxide [place] ([facility]) Calcium [Mass/volume] in Serum or Plasma 9.2 mg/dL 8.6-10.3 Calcium [facility]) Protein [Mass/volume] in Serum or Plasma 6.7 g/dL 6.1-8.1 Protein, [facility] Globulin [Mass/volume] in Serum by calculation 2.4 g/dL_(calc) 1.9- 3.7 Globulin [facility]) Albumin [Mass/volume] in Serum or Plasma 4.3 g/dL 3.6-5.1 Albumin [place] ([facility]) Albumin/Globulin [Mass Ratio] in Serum or Plasma 1.8 (calc) 1.0-2 .5 Albumin/globulin Ratio [place] ([facility]) Bilirubin.total [Mass/volume] in Serum or Plasma 0.7 mg/dL 0.2-1 .2 Bilirubin, Total [place] ([facility]) Alkaline phosphatase [Enzymatic activity/volume] in Serum or Plasma 72 U/L 35-144 Alkaline Phosphatase [place] ([facility]) Aspartate aminotransferase [Enzymatic activity/volume] in Serum or Plasma 13 U/L 10-35 Ast [place] ([facility]) Alanine aminotransferase [Enzymatic activity/volume] in Seru m or Plasma 10 U/L 9-46 Alt [place] ([facility]) ID Date Data Source [id number] 07/30/2021 12:49:00 PM EDT [place] ([facility]) Name Value Range Interpretation Code Description Data Adri rce(s) Supporting Document(s) Cholesterol [Mass/volume] in Serum or Plasma 155 mg/dL <200 Cholesterol, Total [place] ([facility]) Cholesterol in HDL [Mass/volume] in Serum or Plasma 31 mg/dL > or = 40 Below low normal HDL Cholesterol [place] ([facility]) Triglyceride [Mass/volume] in Serum or Plasma 120 mg/dL <150 Triglycerides [place] ([facility]) Cholesterol.total/Cholesterol in HDL [Mass Ratio] in Serum o r Plasma 5.0 (calc) <5.0 Above high normal Chol/hdlc Ratio [place] ([facility]) Cholesterol in LDL [Mass/volume] in Serum or Plasma by calculation 102 mg/dL_(calc) Above high normal LDL-cholesterol [place] ([facility]) Cholesterol non HDL [Mass/volume] in Serum or Plasma 124 mg/dL_(rosa c) <130 Non HDL Cholesterol [place] ([facility]) ID Date Data Source [id number] 07/30/2021 12:49:00 PM EDT [facility]) Name Value Range Interpretation Code Description Data Adri rce(s) Supporting Document(s) Bacteria identified in Urine by Culture see note Culture, Urine, Routine [facility]) ID Date Data Source [id number] 07/30/2021 12:49:00 PM EDT [facility]) Name Value Range Interpretation Code Description Data Adri rce(s) Supporting Document(s) Chlamydia trachomatis rRNA [Presence] in Unspecified specimen by Probe and target amplification method tnp Chla mydia Trachomatis RNA Tma, Urogenital (Refl) [facility]) ID Date Data Source [id number] 07/30/2021 12:49:00 PM EDT [facility]) Name Value Range Interpretation Code Description Data Adri rce(s) Supporting Document(s) Hemoglobin A1c/Hemoglobin.total in Blood 5.8 %_of_total_HGB <5.7 Above high normal Hemoglobin a1C [facility] er) ID Date Data Source [id number] 07/30/2021 12:49:00 PM EDT [facility]) Name Value Range Interpretation Code Description Data Adri rce(s) Supporting Document(s) Thyrotropin [Units/volume] in Serum or Plasma 1.29 mIU/L 0.40-4.5 0 TSH W/reflex to FT4 [facility]) ID Date Data Source [id number] 07/30/2021 12:49:00 PM EDT [facility]) Name Value Range Interpretation Code Description Data Adri rce(s) Supporting Document(s) Erythrocytes [#/volume] in Blood by Automated count 4.63 million/uL 4.20-5.80 Red Blood Cell Count [facility]) Leukocytes [#/volume] in Blood by Automated count 8.5 thousand/uL 3 .8-10.8 White Blood Cell Count [place] ([facility]) Hemoglobin [Mass/volume] in Blood 14.6 g/dL 13.2-17.1 He moglobin [place] ([facility]) Erythrocyte mean corpuscular volume [Entitic volume] by Auto mated count 90.5 fL 80.0-100.0 Mcv [place] ([facility]) Hematocrit [Volume Fraction] of Blood by Automated count 41.9 % 38.5-50.0 Hematocrit [place] ([facility]) Erythrocyte mean corpuscular hemoglobin [Entitic mass] by Automated count 31.5 pg 27.0-33.0 Mch [place] ([facility]) Erythrocyte mean corpuscular hemoglobin concentration [Mass/volume] by Automated count 34.8 g/dL 32.0-36.0 Mchc [facility] ([facility]) Platelets [#/volume] in Blood by Automated count 253 thousand/uL 14 0-400 Platelet Count [place] ([facility]) Erythrocyte distribution width [Ratio] by Automated count 12.4 % 11.0-15.0 Rdw [place] ([facility]) Platelet mean volume [Entitic volume] in Blood by Noman-Kisha 9.8 fL 7.5-12.5 Mpv [place] ([facility]) Neutrophils [#/volume] in Blood by Automated count 6146 cells/uL 15 00-7800 Absolute Neutrophils [place] ([facility]) Lymphocytes [#/volume] in Blood by Automated count 1479 cells/uL 85 0-3900 Absolute Lymphocytes [place] ([facility]) Monocytes [#/volume] in Blood by Automated count 655 cells/uL 200-9 50 Absolute Monocytes [place] ([facility]) Eosinophils [#/volume] in Blood by Automated count 162 cells/uL 15- 500 Absolute Eosinophils [place] ([facility]) Basophils [#/volume] in Blood by Automated count 60 cells/uL 0-200 Absolute Basophils [place] ([facility]) Neutrophils/100 leukocytes in Blood by Automated count 72.3 % 38-80 Neutrophils [place] ([facility]) Monocytes/100 leukocytes in Blood by Automated count 7.7 % 0-13 Monocytes [place] ([facility]) Lymphocytes/100 leukocytes in Blood by Automated count 17.4 % 15-49 Lymphocytes [place] ([facility]) Eosinophils/100 leukocytes in Blood by Automated count 1.9 % 0-8 Eosinophils [place] ([facility]) Basophils/100 leukocytes in Blood by Automated count 0.7 % 0-2 Basophils [place] ([facility]) ID Date Data Source [id number] 07/30/2021 12:49:00 PM EDT [place] ([facility]) Name Value Range Interpretation Code Description Data Adri rce(s) Supporting Document(s) Glucose [Mass/volume] in Serum or Plasma 103 mg/dL 65-99 Above high normal Glucose [place] ([facility]) Urea nitrogen [Mass/volume] in Serum or Plasma 19 mg/dL 7-25 Urea Nitrogen (BUN) [facility]) Creatinine [Mass/volume] in Serum or Plasma 0.95 mg/dL 0.70-1.18 Creatinine [facility]) Glomerular filtration rate/1.73 sq M.pre dicted among blacks [Volume Rate/Area] in Serum, Plasma or Blood by Creatinine-based formula (CKD-EPI) 92 mL/min/1.73m2 > or = 60 eGFR [place] ([facility]) Glomerular filtration rate/1.73 sq M.pre dicted among non-blacks [Volume Rate/Area] in Serum, Plasma or Blood by Creatinine-based formula (CKD-EPI) 80 mL/min/1.73m2 > or = 60 eGFR Non-afr. [place] ([facility]) Urea nitrogen/Creatinine [Mass Ratio] in Serum or Plasma not applic able 6-22 [facility]inine [facility] Sodium [Moles/volume] in Serum or Plasma 140 mmol/L 135-146 [facility] Chloride [Moles/volume] in Serum or Plasma 107 mmol/L 98-110 Chloride [facility]) Potassium [Moles/volume] in Serum or Plasma 4.6 mmol/L 3.5-5.3 Potassium [facility]) Carbon dioxide, total [Moles/volume] in Serum or Plasma 27 mmol/L 20-32 Carbon Dioxide [place] ([facility]) Protein [Mass/volume] in Serum or Plasma 6.7 g/dL 6.1-8.1 Protein, Total [place] ([facility]) Calcium [Mass/volume] in Serum or Plasma 9.2 mg/dL 8.6-10.3 Calcium [place] ([facility]) Albumin [Mass/volume] in Serum or Plasma 4.3 g/dL 3.6-5.1 Albumin [place] ([facility]) Globulin [Mass/volume] in Serum by calculation 2.4 g/dL_(calc) 1.9- 3.7 Globulin [place] ([facility]) Alkaline phosphatase [Enzymatic activity/volume] in Serum or Plasma 72 U/L 35-144 Alkaline Phosphatase [place] ([facility]) Bilirubin.total [Mass/volume] in Serum or Plasma 0.7 mg/dL 0.2-1 .2 Bilirubin, Total [place] ([facility]) Albumin/Globulin [Mass Ratio] in Serum or Plasma 1.8 (calc) 1.0-2 .5 Albumin/globulin Ratio [place] ([facility]) Aspartate aminotransferase [Enzymatic activity/volume] in Serum or Plasma 13 U/L 10-35 Ast [place] ([facility]) Alanine aminotransferase [Enzymatic activity/volume] in Seru m or Plasma 10 U/L 9-46 Alt [place] ([facility]) ID Date Data Source [id number] 07/30/2021 12:49:00 PM EDT [place] ([facility]) Name Value Range Interpretation Code Description Data Adri rce(s) Supporting Document(s) Cholesterol in HDL [Mass/volume] in Serum or Plasma 31 mg/dL > or = 40 Below low normal HDL Cholesterol [place] ([facility]) Cholesterol [Mass/volume] in Serum or Plasma 155 mg/dL <200 Cholesterol, Total [place] ([facility]) Cholesterol in LDL [Mass/volume] in Serum or Plasma by calculation 102 mg/dL_(calc) Above high normal LDL-cholesterol [place] ([facility]) Triglyceride [Mass/volume] in Serum or Plasma 120 mg/dL <150 Triglycerides [facility] ([facility]) Cholesterol.total/Cholesterol in HDL [Mass Ratio] in Serum o r Plasma 5.0 (calc) <5.0 Above high normal Chol/hdlc Ratio [facility] ([facility]) Cholesterol non HDL [Mass/volume] in Serum or Plasma 124 mg/dL_(rosa c) <130 Non HDL Cholesterol [facility] ([facility]) ID Date Data Source [id number] 07/30/2021 12:02:00 PM EDT [place] ([facility]) Name Value Range Interpretation Code Description Data Adri rce(s) Supporting Document(s) bilirubin neg Bilirubin [facility] ([facility]) blood neg Blood [facility] ([facility]) leukocytes neg Leukocytes [facility] ([facility]) ketone +- Ketone [facility] ([facility]) glucose neg Glucose [place] ([facility]) nitrite neg Nitrite [facility] ([facility]) pH Ph [facility] ([facility]) urobilinogen Urobilinogen [place] ([facility]) protein +- Protein [place] ([facility]) specific gravity Specific [place] [facility] [place] ([facility]) ID Date Data Source [id number] 07/30/2021 12:02:00 PM EDT [place] ([facility]) Name Value Range Interpretation Code Description Data Adri rce(s) Supporting Document(s) blood neg Blood [facility] ([facility]) glucose neg Glucose [place] ([facility]) bilirubin neg Bilirubin [place] ([facility]) nitrite neg Nitrite [place] ([facility]) leukocytes neg Leukocytes [place] ([facility]) ketone +- Ketone [place] ([facility]) pH Ph [facility] ([facility]) protein +- Protein [facility] ([facility]) urobilinogen Urobilinogen [place] ([facility]) specific gravity Specific [place] [facility] ([facility]) ID Date Data Source [id number] 07/30/2021 12:02:00 PM EDT [place] ([facility]) Name Value Range Interpretation Code Description Data Adri rce(s) Supporting Document(s) bilirubin neg Bilirubin [facility] ([facility]) blood neg Blood [facility] ([facility]) ketone +- Ketone [place] ([facility]) glucose neg Glucose [place] ([facility]) leukocytes neg Leukocytes [place] ([facility]) pH Ph [facility] ([facility]) nitrite neg Nitrite [place] ([facility]) specific gravity Specific [place] [facility] ([facility]) protein +- Protein [place] ([facility]) urobilinogen Urobilinogen [place] ([facility]) ID Date Data Source [id number] 07/30/2021 11:36:00 AM EDT [place] ([facility]) Name Value Range Interpretation Code Description Data Adri rce(s) Supporting Document(s) sars-cov-2 negative negative Sars-cov-2 [place] ([facility]) ID Date Data Source [id number] 07/30/2021 11:36:00 AM EDT [place] ([facility]) Name Value Range Interpretation Code Description Data Adri rce(s) Supporting Document(s) sars-cov-2 negative negative Sars-cov-2 [place] ([facility]) ID Date Data Source [id number] 07/30/2021 11:36:[facility] Name Value Range Interpretation Code Description Data Adri rce(s) Supporting Document(s) sars-cov-2 negative negative Sars-cov-2 [facility]) ID Date Data Source [id number] 07/30/2021 11:21:00 AM EDT [facility] Name Value Range Interpretation Code Description Data Adri rce(s) Supporting Document(s) SARS coronavirus 2 [facility] gene [Presence] in Respiratory specimen by SURY with probe detection Not detected [place]SDOH This lab was ordered by [facility] and reported by [facility]. ID Date Data Source [id number] 10/06/2020 10:00:00 AM EST [place] ([facility]) Name Value Range Interpretation Code Description Data Adri rce(s) Supporting Document(s) PSA total 2.6 NG/mL 0.0-4.0 PSA Total [place] ([facility]) PSA comment . PSA Comment [place] ([facility]) ID Date Data Source [id number] 10/06/2020 10:00:00 AM EST [place] ([facility]) Name Value Range Interpretation Code Description Data Adri rce(s) Supporting Document(s) Hemoglobin A1c/Hemoglobin.total in Blood 5.8 % Hemoglobin a1C [place] ([facility]) estimated average glucose 120 mg/dL 60-110 Above high norm al Estimated Average Glucose [place] ([facility]) ID Date Data Source [id number] 10/06/2020 10:00:00 AM EST [place] ([facility]) Name Value Range Interpretation Code Description Data Adri rce(s) Supporting Document(s) total 25(oh) vitamin D 60.9 NG/mL 30.0-100.0 Total 25(Oh) Vitamin D [place] ([facility]) ID Date Data Source [id number] 10/06/2020 10:00:00 AM EST [facility]) Name Value Range Interpretation Code Description Data Adri rce(s) Supporting Document(s) thyroid stimulating hormone 4.440 uIU/mL 0.358-3.740 Above high no rmal Thyroid Stimulating Hormone [place] ([facility]) free T4 1.12 NG/dL 0.76-1.46 Free T4 [place] ([facility]) ID Date Data Source [id number] 10/06/2020 10:00:00 AM EST [place] ([facility]) Name Value Range Interpretation Code Description Data Adri rce(s) Supporting Document(s) triglycerides level 82 mg/dL <150 Triglycerides [place] nat[place]a [place] ([facility]) cholesterol level 135 mg/dL <200 Cholesterol Level [place] ([facility]) Cholesterol in LDL [Mass/volume] in Serum or Plasma 81 mg/dL <1 00 LDL Cholesterol [place] ([facility]) HDL cholesterol 38 mg/dL >40 Below low normal HDL Cholestero l [place] ([facility]) non-HDL-C 97 mg/dL Non-hdl-c [place] ([facility]) cholesterol risk ratio <5 Cholesterol R isk Ratio [place] ([facility]) ID Date Data Source [id number] 10/06/2020 10:00:00 AM EST [place] ([facility]) Name Value Range Interpretation Code Description Data Adri rce(s) Supporting Document(s) glucose, fasting 120 mg/dL 70-100 Above high normal Glucose, Fas ting [place] ([facility]) blood urea nitrogen 27 mg/dL 7-18 Above high normal Blood Ure a Nitrogen [place] ([facility]) creatinine for GFR 1.20 mg/dL 0.70-1.30 Creatinine for GF R [place] ([facility]) glomerular filtration rate > 60.0 >42 Glomerula r Filtration Rate [place] ([facility]) potassium serum 4.8 mEq/L 3.5-5.1 Potassium Serum [place] NA ([facility]) sodium level 137 mEq/L 136-145 Sodium Level [place] ([facility]) carbon dioxide level 28 mEq/L 21-32 Carbon Dioxide Level [place] ([facility]) anion gap 5 mEq/L 8-16 Below low normal Anion Gap [place] ( [facility]) calcium level 9.1 mg/dL 8.8-10.2 Calcium Level [place] ( [facility]) chloride level 104 mEq/L 98-107 Chloride Level [place] ([facility]) alkaline phosphatase 75 U/L 45-117 Alkaline Phosph atase [place] ([facility]) ALT/SGPT 21 U/L 12-78 ALT/SGPT [place] ([facility]) AST/SGOT 13 U/L 7-37 AST/SGOT [place] ([facility]) bilirubin,total 0.5 mg/dL 0.2-1.0 Bilirubin,total [place] NA ([facility]) albumin/globulin ratio Albumin/globu evie Ratio [place] ([facility]) albumin 4.1 gm/dL 3.2-5.2 Albumin [place] ([facility]) total protein 6.9 gm/dL 6.4-8.2 Total Protein [place] ( [facility]) ID Date Data Source [id number] 10/06/2020 10:00:00 AM EST [place] ([facility]) Name Value Range Interpretation Code Description Data Adri rce(s) Supporting Document(s) white blood count 8.2 10 4.0-10.0 White Blood Count [place] ([facility]) red blood count 4.83 10 4.30-6.10 Red Blood Count [place] ([facility]) hemoglobin 14.7 g/dL 13.5-17.5 Hemoglobin [place] ([facility]) hematocrit 45.5 % 42.0-52.0 Hematocrit [place] ([facility]) mean corpuscular volume 94.2 fL 80.0-96.0 Mean Corpusc ular Volume [place] ([facility]) mean corpuscular HGB conc 32.3 g/dL 32.0-36.5 Mean Corpu scular HGB Conc [place] ([facility]) mean corpuscular hemoglobin 30.4 pg 27.0-33.0 Mean Cor puscular Hemoglobin [place] ([facility]) neutrophils % 72.5 % 36.0-66.0 Above high normal Neutrophils % A [place] ([facility]) red cell distribution width 12.6 % 11.5-14.5 Red Cell Distribution Width [place] ([facility]) platelet count, automated 225 10 150-450 Platelet C ount, Automated [place] ([facility]) eos % 2.2 % 0.0-3.0 Eos % [place] ([facility]) mono % 6.0 % 0.0-5.0 Above high normal [place] % [place] ([facility]) lymph % 18.2 % 24.0-44.0 Below low normal Lymph % [place] ( [facility]) nucleated red blood cell % 0.0 % 0-0 Nucleated Red Blood Cell % [place] ([facility]) baso % 0.7 % 0.0-1.0 Baso % [place] ([facility]) immature granulocyte % 0.4 % 0-3.0 Immature Gran ulocyte % [place] ([facility]) lymph # 1.5 10 1.5-5.0 Lymph # [place] ([facility]) mono # 0.5 10 0.0-0.8 [place] # [place] ([facility]) neutrophils # 5.9 10 1.5-8.5 Neutrophils # [place] ( [facility]) eos # 0.2 10 0.0-0.5 Eos # [place] ([facility]) baso # 0.1 10 0.0-0.2 Baso # [place] ([facility]) ID Date Data Source [id number] 10/06/2020 10:00:00 AM EST [place] ([facility]) Name Value Range Interpretation Code Description Data Adri rce(s) Supporting Document(s) PSA total 2.6 NG/mL 0.0-4.0 PSA Total [place] ([facility]) PSA comment . PSA Comment [place] ([facility]) ID Date Data Source [id number] 10/06/2020 10:00:00 AM EST [place] ([facility]) Name Value Range Interpretation Code Description Data Adri rce(s) Supporting Document(s) Hemoglobin A1c/Hemoglobin.total in Blood 5.8 % Hemoglobin a1C [place] ([facility]) estimated average glucose 120 mg/dL 60-110 Above high norm al Estimated Average Glucose [place] ([facility]) ID Date Data Source [id number] 10/06/2020 10:00:00 AM EST [place] ([facility]) Name Value Range Interpretation Code Description Data Adri rce(s) Supporting Document(s) total 25(oh) vitamin D 60.9 NG/mL 30.0-100.0 Total 25(Oh) Vitamin D [place] ([facility]) ID Date Data Source [id number] 10/06/2020 10:00:00 AM EST [place] ([facility]) Name Value Range Interpretation Code Description Data Adri rce(s) Supporting Document(s) thyroid stimulating hormone 4.440 uIU/mL 0.358-3.740 Above high no rmal Thyroid Stimulating Hormone [place] ([facility]) free T4 1.12 NG/dL 0.76-1.46 Free T4 [place] ([facility]) ID Date Data Source [id number] 10/06/2020 10:00:00 AM EST [place] ([facility]) Name Value Range Interpretation Code Description Data Adri rce(s) Supporting Document(s) cholesterol level 135 mg/dL <200 Cholesterol Level [place] ([facility]) HDL cholesterol 38 mg/dL >40 Below low normal HDL Cholestero l [place] ([facility]) triglycerides level 82 mg/dL <150 Triglycerides [place] nat[place] ([facility]) cholesterol risk ratio <5 Cholesterol R isk Ratio [place] ([facility]) non-HDL-C 97 mg/dL Non-hdl-c [place] ([facility]) Cholesterol in LDL [Mass/volume] in Serum or Plasma 81 mg/dL <1 00 LDL Cholesterol [place] ([facility]) ID Date Data Source [id number] 10/06/2020 10:00:00 AM EST [place] ([facility]) Name Value Range Interpretation Code Description Data Adri rce(s) Supporting Document(s) glucose, fasting 120 mg/dL 70-100 Above high normal Glucose, Fas ting [place] ([facility]) creatinine for GFR 1.20 mg/dL 0.70-1.30 Creatinine for GF R [place] ([facility]) blood urea nitrogen 27 mg/dL 7-18 Above high normal Blood Ure a Nitrogen [place] ([facility]) glomerular filtration rate > 60.0 >42 Glomerula r Filtration Rate [place] ([facility]) sodium level 137 mEq/L 136-145 Sodium Level [place] (No [facility]) carbon dioxide level 28 mEq/L 21-32 Carbon Dioxide Level [place] ([facility]) potassium serum 4.8 mEq/L 3.5-5.1 Potassium Serum [place] NA ([facility]) chloride level 104 mEq/L 98-107 Chloride Level [place] ([facility]) anion gap 5 mEq/L 8-16 Below low normal Anion Gap [place] ( [facility]) calcium level 9.1 mg/dL 8.8-10.2 Calcium Level [place] ( [facility]) AST/SGOT 13 U/L 7-37 AST/SGOT [place] ([facility]) bilirubin,total 0.5 mg/dL 0.2-1.0 Bilirubin,total [place] NA ([facility]) alkaline phosphatase 75 U/L 45-117 Alkaline Phosph atase [place] ([facility]) total protein 6.9 gm/dL 6.4-8.2 Total Protein [place] ( [facility]) ALT/SGPT 21 U/L 12-78 ALT/SGPT [place] ([facility]) albumin 4.1 gm/dL 3.2-5.2 Albumin [place] ([facility]) albumin/globulin ratio Albumin/globu evie Ratio [place] ([facility]) ID Date Data Source [id number] 10/06/2020 10:00:00 AM EST [place] ([facility]) Name Value Range Interpretation Code Description Data Adri rce(s) Supporting Document(s) white blood count 8.2 10 4.0-10.0 White Blood Count [place] ([facility]) red blood count 4.83 10 4.30-6.10 Red Blood Count [place] NA ([facility]) hemoglobin 14.7 g/dL 13.5-17.5 Hemoglobin [place] ([facility]) hematocrit 45.5 % 42.0-52.0 Hematocrit [place] ([facility]) mean corpuscular volume 94.2 fL 80.0-96.0 Mean Corpusc ular Volume [place] ([facility]) mean corpuscular HGB conc 32.3 g/dL 32.0-36.5 Mean Corpu scular HGB Conc [place] ([facility]) mean corpuscular hemoglobin 30.4 pg 27.0-33.0 Mean Cor puscular Hemoglobin [place] ([facility]) red cell distribution width 12.6 % 11.5-14.5 Red Cell Distribution Width [place] ([facility]) neutrophils % 72.5 % 36.0-66.0 Above high normal Neutrophils % A [place] ([facility]) platelet count, automated 225 10 150-450 Platelet C ount, Automated [place] ([facility]) lymph % 18.2 % 24.0-44.0 Below low normal Lymph % [place] ( [facility]) eos % 2.2 % 0.0-3.0 Eos % [place] ([facility]) mono % 6.0 % 0.0-5.0 Above high normal [place] % [place] ([facility]) immature granulocyte % 0.4 % 0-3.0 Immature Gran ulocyte % [place] ([facility]) neutrophils # 5.9 10 1.5-8.5 Neutrophils # [place] ( [facility]) nucleated red blood cell % 0.0 % 0-0 Nucleated Red Blood Cell % [place] ([facility]) baso % 0.7 % 0.0-1.0 Baso % [place] ([facility]) lymph # 1.5 10 1.5-5.0 Lymph # [place] ([facility]) eos # 0.2 10 0.0-0.5 Eos # [place] ([facility]) mono # 0.5 10 0.0-0.8 [place] # [place] ([facility]) baso # 0.1 10 0.0-0.2 Baso # [place] ([facility]) ID Date Data Source [id number] 10/06/2020 10:00:00 AM EST [place] ([facility]) Name Value Range Interpretation Code Description Data Adri rce(s) Supporting Document(s) PSA total 2.6 NG/mL 0.0-4.0 PSA Total [place] ([facility]) PSA comment . PSA Comment [place] ([facility]) ID Date Data Source [id number] 10/06/2020 10:00:00 AM EST [place] ([facility]) Name Value Range Interpretation Code Description Data Adri rce(s) Supporting Document(s) Hemoglobin A1c/Hemoglobin.total in Blood 5.8 % Hemoglobin a1C [place] ([facility]) estimated average glucose 120 mg/dL 60-110 Above high norm al Estimated Average Glucose [place] ([facility]) ID Date Data Source [id number] 10/06/2020 10:00:00 AM EST [place] ([facility]) Name Value Range Interpretation Code Description Data Adri rce(s) Supporting Document(s) total 25(oh) vitamin D 60.9 NG/mL 30.0-100.0 Total 25(Oh) Vitamin D [place] ([facility]) ID Date Data Source [id number] 10/06/2020 10:00:00 AM EST [place] ([facility]) Name Value Range Interpretation Code Description Data Adri rce(s) Supporting Document(s) thyroid stimulating hormone 4.440 uIU/mL 0.358-3.740 Above high no rmal Thyroid Stimulating Hormone [place] ([facility]) free T4 1.12 NG/dL 0.76-1.46 Free T4 [place] ([facility]) ID Date Data Source [id number] 10/06/2020 10:00:00 AM EST [place] ([facility]) Name Value Range Interpretation Code Description Data Adri rce(s) Supporting Document(s) triglycerides level 82 mg/dL <150 Triglycerides [place] nat[place]a [place] ([facility]) cholesterol level 135 mg/dL <200 Cholesterol Level [place] ([facility]) HDL cholesterol 38 mg/dL >40 Below low normal HDL Cholestero l [place] ([facility]) cholesterol risk ratio <5 Cholesterol R isk Ratio [place] ([facility]) Cholesterol in LDL [Mass/volume] in Serum or Plasma 81 mg/dL <1 00 LDL Cholesterol [place] ([facility]) non-HDL-C 97 mg/dL Non-hdl-c [place] ([facility]) ID Date Data Source [id number] 10/06/2020 10:00:00 AM EST [place] ([facility]) Name Value Range Interpretation Code Description Data Adri rce(s) Supporting Document(s) creatinine for GFR 1.20 mg/dL 0.70-1.30 Creatinine for GF R [place] ([facility]) blood urea nitrogen 27 mg/dL 7-18 Above high normal Blood Ure a Nitrogen [place] ([facility]) glucose, fasting 120 mg/dL 70-100 Above high normal Glucose, Fas ting [place] ([facility]) glomerular filtration rate > 60.0 >42 Glomerula r Filtration Rate [place] ([facility]) chloride level 104 mEq/L 98-107 Chloride Level [place] ([facility]) sodium level 137 mEq/L 136-145 Sodium Level [place] ([facility]) potassium serum 4.8 mEq/L 3.5-5.1 Potassium Serum [place] ([facility]) AST/SGOT 13 U/L 7-37 AST/SGOT [place] ([facility]) calcium level 9.1 mg/dL 8.8-10.2 Calcium Level [place] ( [facility]) carbon dioxide level 28 mEq/L 21-32 Carbon Dioxide Level [place] ([facility]) anion gap 5 mEq/L 8-16 Below low normal Anion Gap [place] ( [facility]) ALT/SGPT 21 U/L 12-78 ALT/SGPT [place] ([facility]) alkaline phosphatase 75 U/L 45-117 Alkaline Phosph atase [place] ([facility]) bilirubin,total 0.5 mg/dL 0.2-1.0 Bilirubin,total [place] ([facility]) total protein 6.9 gm/dL 6.4-8.2 Total Protein [place] ( [facility]) albumin 4.1 gm/dL 3.2-5.2 Albumin [place] ([facility]) albumin/globulin ratio Albumin/globu evie Ratio [place] ([facility]) ID Date Data Source [id number] 10/06/2020 10:00:00 AM EST [place] ([facility]) Name Value Range Interpretation Code Description Data Adri rce(s) Supporting Document(s) red blood count 4.83 10 4.30-6.10 Red Blood Count [place] ([facility]) hemoglobin 14.7 g/dL 13.5-17.5 Hemoglobin [place] ([facility]) white blood count 8.2 10 4.0-10.0 White Blood Count [place] ([facility]) hematocrit 45.5 % 42.0-52.0 Hematocrit [place] ([facility]) mean corpuscular volume 94.2 fL 80.0-96.0 Mean Corpusc ular Volume [place] ([facility]) mean corpuscular hemoglobin 30.4 pg 27.0-33.0 Mean Cor puscular Hemoglobin [place] ([facility]) mean corpuscular HGB conc 32.3 g/dL 32.0-36.5 Mean Corpu scular HGB Conc [place] ([facility]) red cell distribution width 12.6 % 11.5-14.5 Red Cell Distribution Width [place] ([facility]) lymph % 18.2 % 24.0-44.0 Below low normal Lymph % [place] ( [facility]) platelet count, automated 225 10 150-450 Platelet C ount, Automated [place] ([facility]) neutrophils % 72.5 % 36.0-66.0 Above high normal Neutrophils % A [place] ([facility]) mono % 6.0 % 0.0-5.0 Above high normal [place] % [place] ([facility]) eos % 2.2 % 0.0-3.0 Eos % [place] ([facility]) baso % 0.7 % 0.0-1.0 Baso % [place] ([facility]) nucleated red blood cell % 0.0 % 0-0 Nucleated Red Blood Cell % [place] ([facility]) neutrophils # 5.9 10 1.5-8.5 Neutrophils # [place] ( [facility]) immature granulocyte % 0.4 % 0-3.0 Immature Gran ulocyte % [place] ([facility]) eos # 0.2 10 0.0-0.5 Eos # [place] ([facility]) lymph # 1.5 10 1.5-5.0 Lymph # [place] ([facility]) mono # 0.5 10 0.0-0.8 [place] # [place] ([facility]) baso # 0.1 10 0.0-0.2 Baso # [place] ([facility]) ID Date Data Source [id number] 10/06/2020 10:00:00 AM EST [place] ([facility]) Name Value Range Interpretation Code Description Data Adri rce(s) Supporting Document(s) PSA comment . PSA Comment [place] ([facility]) PSA total 2.6 NG/mL 0.0-4.0 PSA Total [place] ([facility]) ID Date Data Source [id number] 10/06/2020 10:00:00 AM EST [place] ([facility]) Name Value Range Interpretation Code Description Data Adri rce(s) Supporting Document(s) Hemoglobin A1c/Hemoglobin.total in Blood 5.8 % Hemoglobin a1C [place] ([facility]) estimated average glucose 120 mg/dL 60-110 Above high norm al Estimated Average Glucose [place] ([facility]) ID Date Data Source [id number] 10/06/2020 10:00:00 AM EST [place] ([facility]) Name Value Range Interpretation Code Description Data Adri rce(s) Supporting Document(s) total 25(oh) vitamin D 60.9 NG/mL 30.0-100.0 Total 25(Oh) Vitamin D [place] ([facility]) ID Date Data Source [id number] 10/06/2020 10:00:00 AM EST [place] ([facility]) Name Value Range Interpretation Code Description Data Adri rce(s) Supporting Document(s) thyroid stimulating hormone 4.440 uIU/mL 0.358-3.740 Above high no rmal Thyroid Stimulating Hormone [place] ([facility]) free T4 1.12 NG/dL 0.76-1.46 Free T4 [place] ([facility]) ID Date Data Source [id number] 10/06/2020 10:00:00 AM EST [place] ([facility]) Name Value Range Interpretation Code Description Data Adri rce(s) Supporting Document(s) Cholesterol in LDL [Mass/volume] in Serum or Plasma 81 mg/dL <1 00 LDL Cholesterol [facility] ([facility]) triglycerides level 82 mg/dL <150 Triglycerides Le natalya [place] ([facility]) cholesterol level 135 mg/dL <200 Cholesterol Level [place] ([facility]) HDL cholesterol 38 mg/dL >40 Below low normal HDL Cholestero l [facility] ([facility]) non-HDL-C 97 mg/dL Non-hdl-c [facility] ([facility]) cholesterol risk ratio <5 Cholesterol R isk Ratio [facility] ([facility]) ID Date Data Source [id number] 10/06/2020 10:00:00 AM EST [place] ([facility]) Name Value Range Interpretation Code Description Data Adri rce(s) Supporting Document(s) glucose, fasting 120 mg/dL 70-100 Above high normal Glucose, Fas ting [place] ([facility]) blood urea nitrogen 27 mg/dL 7-18 Above high normal Blood Ure a Nitrogen [place] ([facility]) creatinine for GFR 1.20 mg/dL 0.70-1.30 Creatinine for GF R [place] ([facility]) glomerular filtration rate > 60.0 >42 Glomerula r Filtration Rate [facility] ([facility]) potassium serum 4.8 mEq/L 3.5-5.1 Potassium Serum [place] ([facility]) sodium level 137 mEq/L 136-145 Sodium Level [facility] (No [facility]) chloride level 104 mEq/L 98-107 Chloride Level [facility] ([facility]) calcium level 9.1 mg/dL 8.8-10.2 Calcium Level [place] ( [facility]) AST/SGOT 13 U/L 7-37 AST/SGOT [place] ([facility]) anion gap 5 mEq/L 8-16 Below low normal Anion Gap [facility] ( [facility]) carbon dioxide level 28 mEq/L 21-32 Carbon Dioxide Level [facility] ([facility] [facility] total protein 6.9 gm/dL 6.4-8.2 Total Protein LEAH ( [facility]) bilirubin,total 0.5 mg/dL 0.2-1.0 Bilirubin,total ATHE NA ([facility]) ALT/SGPT 21 U/L 12-78 ALT/SGPT LEAH ([facility]) alkaline phosphatase 75 U/L 45-117 Alkaline Phosph atase LEAH ([facility]) albumin 4.1 gm/dL 3.2-5.2 Albumin LEAH ([facility]) albumin/globulin ratio Albumin/globu evie Ratio LEAH ([facility]) ID Date Data Source [id number] 10/06/2020 10:00:00 AM EST LEAH ([facility]) Name Value Range Interpretation Code Description Data Adri rce(s) Supporting Document(s) red blood count 4.83 10 4.30-6.10 Red Blood Count ATHE NA ([facility]) white blood count 8.2 10 4.0-10.0 White Blood Count LEAH ([facility]) hematocrit 45.5 % 42.0-52.0 Hematocrit LEAH ([facility]) mean corpuscular volume 94.2 fL 80.0-96.0 Mean Corpusc ular Volume LEAH ([facility]) hemoglobin 14.7 g/dL 13.5-17.5 Hemoglobin LEAH ([facility]) red cell distribution width 12.6 % 11.5-14.5 Red Cell Distribution Width LEAH ([facility]) mean corpuscular HGB conc 32.3 g/dL 32.0-36.5 Mean Corpu scular HGB Conc LEAH ([facility]) mean corpuscular hemoglobin 30.4 pg 27.0-33.0 Mean Cor puscular Hemoglobin LEAH ([facility]) neutrophils % 72.5 % 36.0-66.0 Above high normal Neutrophils % A THENA ([facility]) lymph % 18.2 % 24.0-44.0 Below low normal Lymph % LEAH ( [facility]) platelet count, automated 225 10 150-450 Platelet C ount, Automated LEAH ([facility]) mono % 6.0 % 0.0-5.0 Above high normal [place] % LEAH ([facility]) eos % 2.2 % 0.0-3.0 Eos % LEAH ([facility]) baso % 0.7 % 0.0-1.0 Baso % LEAH ([facility]) immature granulocyte % 0.4 % 0-3.0 Immature Gran ulocyte % LEAH ([facility]) neutrophils # 5.9 10 1.5-8.5 Neutrophils # LEAH ( [facility]) nucleated red blood cell % 0.0 % 0-0 Nucleated Red Blood Cell % LEAH ([facility]) lymph # 1.5 10 1.5-5.0 Lymph # LEAH ([facility]) mono # 0.5 10 0.0-0.8 [place] # LEAH ([facility]) baso # 0.1 10 0.0-0.2 Baso # LEAH ([facility]) eos # 0.2 10 0.0-0.5 Eos # LEAH ([facility]) ID Date Data Source [id number] 10/06/2020 10:00:00 AM EST LEAH ([facility]) Name Value Range Interpretation Code Description Data Adri rce(s) Supporting Document(s) PSA total 2.6 NG/mL 0.0-4.0 PSA Total LEAH ([facility]) PSA comment . PSA Comment LEAH ([facility]) ID Date Data Source [id number] 10/06/2020 10:00:00 AM EST LEAH ([facility]) Name Value Range Interpretation Code Description Data Adri rce(s) Supporting Document(s) Hemoglobin A1c/Hemoglobin.total in Blood 5.8 % Hemoglobin a1C [place] ([facility]) estimated average glucose 120 mg/dL 60-110 Above high norm al Estimated Average Glucose [place] ([facility]) ID Date Data Source [id number] 10/06/2020 10:00:00 AM EST LEAH ([facility]) Name Value Range Interpretation Code Description Data Adri rce(s) Supporting Document(s) total 25(oh) vitamin D 60.9 NG/mL 30.0-100.0 Total 25(Oh) Vitamin D [place] ([facility]) ID Date Data Source [id number] 10/06/2020 10:00:00 AM EST LEAH ([facility]) Name Value Range Interpretation Code Description Data Adri rce(s) Supporting Document(s) free T4 1.12 NG/dL 0.76-1.46 Free T4 LEAH ([facility]) thyroid stimulating hormone 4.440 uIU/mL 0.358-3.740 Above high no rmal Thyroid Stimulating Hormone LEAH ([facility]) ID Date Data Source [id number] 10/06/2020 10:00:00 AM EST LEAH ([facility]) Name Value Range Interpretation Code Description Data Adri rce(s) Supporting Document(s) triglycerides level 82 mg/dL <150 Triglycerides Le natalya LEAH ([facility]) cholesterol level 135 mg/dL <200 Cholesterol Level LEAH ([facility]) HDL cholesterol 38 mg/dL >40 Below low normal HDL Cholestero l LEAH ([facility]) non-HDL-C 97 mg/dL Non-hdl-c LEAH ([facility]) cholesterol risk ratio <5 Cholesterol R isk Ratio LEAH ([facility]) Cholesterol in LDL [Mass/volume] in Serum or Plasma 81 mg/dL <1 00 LDL Cholesterol LEAH ([facility]) ID Date Data Source [id number] 10/06/2020 10:00:00 AM EST LEAH ([facility]) Name Value Range Interpretation Code Description Data Adri rce(s) Supporting Document(s) glucose, fasting 120 mg/dL 70-100 Above high normal Glucose, Fas ting LEAH ([facility]) blood urea nitrogen 27 mg/dL 7-18 Above high normal Blood Ure a Nitrogen LEAH ([facility]) sodium level 137 mEq/L 136-145 Sodium Level LEAH ([facility]) glomerular filtration rate > 60.0 >42 Glomerula r Filtration Rate LEAH ([facility]) creatinine for GFR 1.20 mg/dL 0.70-1.30 Creatinine for GF R LEAH ([facility]) potassium serum 4.8 mEq/L 3.5-5.1 Potassium Serum ATHE NA [facility]) chloride level 104 mEq/L 98-107 Chloride Level [place] ([facility]) carbon dioxide level 28 mEq/L 21-32 Carbon Dioxide Level LEAH ([facility]) calcium level 9.1 mg/dL 8.8-10.2 Calcium Level LEAH ( [facility]) anion gap 5 mEq/L 8-16 Below low normal Anion Gap LEAH ( [facility]) AST/SGOT 13 U/L 7-37 AST/SGOT LEAH ([facility]) ALT/SGPT 21 U/L 12-78 ALT/SGPT LEAH ([facility]) alkaline phosphatase 75 U/L 45-117 Alkaline Phosph atase LEAH ([facility]) bilirubin,total 0.5 mg/dL 0.2-1.0 Bilirubin,total ATHE ([facility]) albumin 4.1 gm/dL 3.2-5.2 Albumin LEAH ([facility]) total protein 6.9 gm/dL 6.4-8.2 Total Protein LEAH ( [facility]) albumin/globulin ratio Albumin/globu evie Ratio LEAH ([facility]) ID Date Data Source [id number] 10/06/2020 10:00:00 AM EST [place] ([facility]) Name Value Range Interpretation Code Description Data Adri rce(s) Supporting Document(s) red blood count 4.83 10 4.30-6.10 Red Blood Count ATHE ([facility]) hemoglobin 14.7 g/dL 13.5-17.5 Hemoglobin LEAH ([facility]) white blood count 8.2 10 4.0-10.0 White Blood Count LEAH ([facility]) mean corpuscular hemoglobin 30.4 pg 27.0-33.0 Mean Cor puscular Hemoglobin LEAH ([facility]) mean corpuscular volume 94.2 fL 80.0-96.0 Mean Corpusc ular Volume LEAH ([facility]) hematocrit 45.5 % 42.0-52.0 Hematocrit LEAH ([facility]) platelet count, automated 225 10 150-450 Platelet C ount, Automated LEAH ([facility]) red cell distribution width 12.6 % 11.5-14.5 Red Cell Distribution Width LEAH ([facility]) neutrophils % 72.5 % 36.0-66.0 Above high normal Neutrophils % A THENA ([facility]) mean corpuscular HGB conc 32.3 g/dL 32.0-36.5 Mean Corpu scular HGB Conc LEAH ([facility]) lymph % 18.2 % 24.0-44.0 Below low normal Lymph % LEAH ( [facility]) mono % 6.0 % 0.0-5.0 Above high normal [place] % LEAH ([facility]) eos % 2.2 % 0.0-3.0 Eos % LEAH ([facility]) baso % 0.7 % 0.0-1.0 Baso % [place] ([facility]) immature granulocyte % 0.4 % 0-3.0 Immature Gran ulocyte % [place] ([facility]) nucleated red blood cell % 0.0 % 0-0 Nucleated Red Blood Cell % LEAH ([facility]) neutrophils # 5.9 10 1.5-8.5 Neutrophils # LEAH ( [facility]) mono # 0.5 10 0.0-0.8 [place] # LEAH ([facility]) lymph # 1.5 10 1.5-5.0 Lymph # LEAH ([facility]) eos # 0.2 10 0.0-0.5 Eos # LEAH ([facility]) baso # 0.1 10 0.0-0.2 Baso # LEAH ([facility]) ID Date Data Source [id number] 10/06/2020 09:51:00 AM EST LEAH ([facility]) Name Value Range Interpretation Code Description Data Adri rce(s) Supporting Document(s) bilirubin pos Abnormal (applies to non-numeric res ults) Bilirubin LEAH ([facility]) blood neg Blood LEAH ([facility]) nitrite neg Nitrite LEAH ([facility]) leukocytes pos Leukocytes LEAH ([facility]) glucose neg Glucose LEAH ([facility]) ketone pos Ketone LEAH ([facility]) urobilinogen 0.2 mg/dL Urobilinogen LEAH ([facility]) protein pos Protein LEAH ([facility]) pH Ph LEAH ([facility]) specific gravity Specific [place] ([facility]) ID Date Data Source [id number] 10/06/2020 09:51:00 AM EST LEAH ([facility]) Name Value Range Interpretation Code Description Data Adri rce(s) Supporting Document(s) glucose neg Glucose LEAH ([facility]) blood neg Blood LEAH ([facility]) bilirubin pos Abnormal (applies to non-numeric res ults) Bilirubin LEAH ([facility]) ketone pos Ketone LEAH ([facility]) protein pos Protein LEAH ([facility]) leukocytes pos Leukocytes LEAH ([facility]) nitrite neg Nitrite LEAH ([facility]) pH Ph LEAH ([facility]) specific gravity Specific [place] ([facility]) urobilinogen 0.2 mg/dL Urobilinogen LEAH ([facility]) ID Date Data Source [id number] 10/06/2020 09:51:00 AM EST LEAH ([facility]) Name Value Range Interpretation Code Description Data Adri rce(s) Supporting Document(s) bilirubin pos Abnormal (applies to non-numeric res ults) Bilirubin LEAH ([facility]) blood neg Blood LEAH ([facility]) ketone pos Ketone LEAH ([facility]) glucose neg Glucose LEAH ([facility]) leukocytes pos Leukocytes LEAH ([facility]) nitrite neg Nitrite LEAH ([facility]) pH Ph LEAH ([facility]) protein pos Protein LEAH ([facility]) specific gravity Specific [place] ([facility]) urobilinogen 0.2 mg/dL Urobilinogen LEAH ([facility]) ID Date Data Source [id number] 10/06/2020 09:51:00 AM EST LEAH ([facility]) Name Value Range Interpretation Code Description Data Adri rce(s) Supporting Document(s) glucose neg Glucose LEAH ([facility]) blood neg Blood LEAH ([facility]) bilirubin pos Abnormal (applies to non-numeric res ults) Bilirubin LEAH ([facility]) leukocytes pos Leukocytes LEAH ([facility]) ketone pos Ketone LEAH ([facility]) protein pos Protein LEAH ([facility]) pH Ph LEAH ([facility]) nitrite neg Nitrite LEAH ([facility]) urobilinogen 0.2 mg/dL [facility] specific [facility] Specific [place] ([facility]) ID Date Data Source [id number] 10/06/2020 09:51:00 AM EST LEAH ([facility]) Name Value Range Interpretation Code Description Data Adri rce(s) Supporting Document(s) blood neg Blood LEAH ([facility]) ketone pos Ketone LEAH ([facility]) bilirubin pos Abnormal (applies to non-numeric res ults) Bilirubin LEAH ([facility]) glucose neg Glucose LEAH ([facility]) leukocytes pos Leukocytes LEAH ([facility]) protein pos Protein LEAH ([facility]) pH Ph LEAH ([facility]) specific gravity Specific [place] ([facility]) nitrite neg Nitrite LEAH ([facility]) urobilinogen 0.2 mg/dL Urobilinogen LEAH ([facility]) ID Date Data Source [id number] 10/06/2020 09:40:00 AM EST LEAH ([facility]) Name Value Range Interpretation Code Description Data Adri rce(s) Supporting Document(s) ID Date Data Source [id number] 10/06/2020 09:40:00 AM EST LEAH ([facility]) Name Value Range Interpretation Code Description Data Adri rce(s) Supporting Document(s) appearance, urine hazy clear Appearance, Urine LEAH ([facility]) pH,urine 5.0 units 5.0-9.0 pH,urine LEAH ([facility]) color, urine yellow yellow Color, Urine LEAH (No [facility]) specific gravity urine auto 1.002-1.035 Specifi c [place] Urine Auto LEAH ([facility]) protein, urine auto negative negative Protein, Urine A uto LEAH ([facility]) ketone, urine auto trace negative Above high normal Ketone, Ur ine Auto [place] ([facility]) urobilinogen, urine auto 2.0 mg/dL 0.0-2.0 Above high jose l Urobilinogen, Urine Auto LEAH ([facility]) glucose, urine (UA) auto negative negative Glucose, Ur ine (UA) Auto LEAH ([facility]) nitrite, urine auto negative negative Nitrite, Urine A uto LEAH ([facility]) bilirubin, urine auto negative negative Bilirubin, Uri ne Auto LEAH ([facility]) leukocyte esterase, urine auto trace negative Above high normal Leukocyte Esterase, Urine Auto LEAH ([facility]) blood, urine blood negative negative Blood, Urine Bloo d LEAH ([facility]) RBC, urine auto 2 /hpf 0-3 RBC, Urine Auto ATHE NA ([facility]) WBC, urine auto 3 /hpf 0-3 WBC, Urine Auto ATHE NA ([facility]) bacteria, urine auto negative negative Bacteria, Urine Auto LEAH ([facility]) mucus, urine small negative Mucus, Urine LEAH ([facility]) squamous epithelial cell ur AU 0 /hpf 0-6 Squam ous Epithelial Cell Ur AU LEAH ([facility]) hyaline cast, urine auto 1 /lpf 0-1 Hyaline Carlo t, Urine Auto LEAH ([facility]) calcium oxalate crystals small none Calcium Oxa late Crystals LEAH ([facility]) ID Date Data Source [id number] 10/06/2020 09:40:00 AM EST LEAH ([facility]) Name Value Range Interpretation Code Description Data Adri rce(s) Supporting Document(s) ID Date Data Source [id number] 10/06/2020 09:40:00 AM EST LEAH ([facility]) Name Value Range Interpretation Code Description Data Adri rce(s) Supporting Document(s) color, urine yellow yellow Color, Urine LEAH ([facility]) appearance, urine hazy clear Appearance, Urine LEAH ([facility]) pH,urine 5.0 units 5.0-9.0 pH,urine LEAH ([facility]) protein, urine auto negative negative Protein, Urine A uto LEAH ([facility]) specific gravity urine auto 1.002-1.035 Specifi c [place] Urine Auto LEAH ([facility]) urobilinogen, urine auto 2.0 mg/dL 0.0-2.0 Above high jose l Urobilinogen, Urine Auto LEAH ([facility]) ketone, urine auto trace negative Above high normal Ketone, Ur ine Auto LEAH ([facility]) glucose, urine (UA) auto negative negative Glucose, Ur ine (UA) Auto LEAH ([facility]) bilirubin, urine auto negative negative Bilirubin, Uri ne Auto LEAH ([facility]) leukocyte esterase, urine auto trace negative Above high normal Leukocyte Esterase, Urine Auto LEAH ([facility]) nitrite, urine auto negative negative Nitrite, Urine A uto LEAH ([facility]) blood, urine blood negative negative Blood, Urine Bloo d LEAH ([facility]) WBC, urine auto 3 /hpf 0-3 WBC, Urine Auto ATHE NA ([facility]) RBC, urine auto 2 /hpf 0-3 RBC, Urine Auto ATHE NA ([facility]) bacteria, urine auto negative negative Bacteria, Urine Auto LEAH ([facility]) squamous epithelial cell ur AU 0 /hpf 0-6 Squam ous Epithelial Cell Ur AU LEAH ([facility]) hyaline cast, urine auto 1 /lpf 0-1 Hyaline Carlo t, Urine Auto LEAH ([facility]) mucus, urine small negative Mucus, Urine LEAH ([facility]) calcium oxalate crystals small none Calcium Oxa late Crystals LEAH ([facility]) ID Date Data Source [id number] 10/06/2020 09:40:00 AM EST LEAH ([facility]) Name Value Range Interpretation Code Description Data Adri rce(s) Supporting Document(s) ID Date Data Source [id number] 10/06/2020 09:40:00 AM EST LEAH ([facility]) Name Value Range Interpretation Code Description Data Adri rce(s) Supporting Document(s) appearance, urine hazy clear Appearance, Urine LEAH ([facility]) color, urine yellow yellow Color, Urine LEAH ([facility]) pH,urine 5.0 units 5.0-9.0 pH,urine LEAH ([facility]) specific gravity urine auto 1.002-1.035 Specifi c [place] Urine Auto LEAH ([facility]) protein, urine auto negative negative Protein, Urine A uto LEAH ([facility]) glucose, urine (UA) auto negative negative Glucose, Ur ine (UA) Auto LEAH ([facility]) urobilinogen, urine auto 2.0 mg/dL 0.0-2.0 Above high jose l Urobilinogen, Urine Auto LEAH ([facility]) ketone, urine auto trace negative Above high normal Ketone, Ur ine Auto LEAH ([facility]) bilirubin, urine auto negative negative Bilirubin, Uri ne Auto LEAH ([facility]) leukocyte esterase, urine auto trace negative Above high normal Leukocyte Esterase, Urine Auto LEAH ([facility]) blood, urine blood negative negative Blood, Urine Bloo d LEAH ([facility]) nitrite, urine auto negative negative Nitrite, Urine A uto LEAH ([facility]) bacteria, urine auto negative negative Bacteria, Urine Auto LEAH ([facility]) WBC, urine auto 3 /hpf 0-3 WBC, Urine Auto ATHE NA ([facility]) RBC, urine auto 2 /hpf 0-3 RBC, Urine Auto ATHE NA ([facility]) squamous epithelial cell ur AU 0 /hpf 0-6 Squam ous Epithelial Cell Ur AU LEAH ([facility]) mucus, urine small negative Mucus, Urine LEAH ([facility]) hyaline cast, urine auto 1 /lpf 0-1 Hyaline Carlo t, Urine Auto LEAH ([facility]) calcium oxalate crystals small none Calcium Oxa late Crystals LEAH ([facility]) ID Date Data Source [id number] 10/06/2020 09:40:00 AM EST LEAH ([facility]) Name Value Range Interpretation Code Description Data Adri rce(s) Supporting Document(s) ID Date Data Source [id number] 10/06/2020 09:40:00 AM EST LEAH ([facility]) Name Value Range Interpretation Code Description Data Adri rce(s) Supporting Document(s) appearance, urine hazy clear Appearance, Urine LEAH ([facility]) pH,urine 5.0 units 5.0-9.0 pH,urine LEAH ([facility]) color, urine yellow yellow Color, Urine LEAH ([facility]) protein, urine auto negative negative Protein, Urine A uto LEAH ([facility]) ketone, urine auto trace negative Above high normal Ketone, Ur ine Auto LEAH ([facility]) specific gravity urine auto 1.002-1.035 Specifi c [place] Urine Auto LEAH ([facility]) glucose, urine (UA) auto negative negative Glucose, Ur ine (UA) Auto LEAH ([facility]) urobilinogen, urine auto 2.0 mg/dL 0.0-2.0 Above high jose l Urobilinogen, Urine Auto LEAH ([facility]) bilirubin, urine auto negative negative Bilirubin, Uri ne Auto LEAH ([facility]) nitrite, urine auto negative negative Nitrite, Urine A uto LEAH ([facility]) leukocyte esterase, urine auto trace negative Above high normal Leukocyte Esterase, Urine Auto LEAH ([facility]) blood, urine blood negative negative Blood, Urine Bloo d LEAH ([facility]) WBC, urine auto 3 /hpf 0-3 WBC, Urine Auto ATHE NA ([facility]) RBC, urine auto 2 /hpf 0-3 RBC, Urine Auto ATHE NA ([facility]) bacteria, urine auto negative negative Bacteria, Urine Auto LEAH ([facility]) squamous epithelial cell ur AU 0 /hpf 0-6 Squam ous Epithelial Cell Ur AU LEAH ([facility]) mucus, urine small negative Mucus, Urine LEAH ([facility]) calcium oxalate crystals small none Calcium Oxa late Crystals LEAH ([facility]) hyaline cast, urine auto 1 /lpf 0-1 Hyaline Carlo t, Urine Auto LEAH ([facility]) ID Date Data Source [id number] 10/06/2020 09:40:00 AM EST LEAH ([facility]) Name Value Range Interpretation Code Description Data Adri rce(s) Supporting Document(s) ID Date Data Source [id number] 10/06/2020 09:40:00 AM EST LEAH ([facility]) Name Value Range Interpretation Code Description Data Adri rce(s) Supporting Document(s) color, urine yellow yellow Color, Urine LEAH ([facility]) appearance, urine hazy clear Appearance, Urine LEAH ([facility]) pH,urine 5.0 units 5.0-9.0 pH,urine LEAH ([facility]) specific gravity urine auto 1.002-1.035 Specifi c [place] Urine Auto LEAH ([facility]) protein, urine auto negative negative Protein, Urine A uto LEAH ([facility]) urobilinogen, urine auto 2.0 mg/dL 0.0-2.0 Above high [place] Urobilinogen, Urine Auto LEAH ([facility]) ketone, urine auto trace negative Above high normal Ketone, Ur ine Auto LEAH ([facility]) glucose, urine (UA) auto negative negative Glucose, Ur ine (UA) Auto LEAH ([facility]) bilirubin, urine auto negative negative Bilirubin, Uri ne Auto LEAH ([facility]) nitrite, urine auto negative negative Nitrite, Urine A uto LEAH ([facility]) blood, urine blood negative negative Blood, Urine Bloo d LEAH ([facility]) leukocyte esterase, urine auto trace negative Above high normal Leukocyte Esterase, Urine Auto LEAH ([facility]) WBC, urine auto 3 /hpf 0-3 WBC, Urine Auto ATHE NA ([facility]) squamous epithelial cell ur AU 0 /hpf 0-6 Squam ous Epithelial Cell Ur AU LEAH ([facility]) bacteria, urine auto negative negative Bacteria, Urine Auto LEAH ([facility]) RBC, urine auto 2 /hpf 0-3 RBC, Urine Auto ATHE NA ([facility]) calcium oxalate crystals small none Calcium Oxa late Crystals LEAH ([facility]) hyaline cast, urine auto 1 /lpf 0-1 Hyaline Carlo t, Urine Auto LEAH ([facility]) mucus, urine small negative Mucus, Urine LEAH (No [facility]) Procedure Social History No Information Vital Signs ID Date Data Source UNK Name Value Range Interpretation Code Description Data Source(s) Body height 65 [in_i] 65 [in_i] LEAH ([facility]) Body mass index (BMI) [Ratio] 23 kg/m2 23 kg/ m2 LEAH ([facility]) Systolic blood pressure 138 mm[Hg] 138 mm[Hg] Hermilo THENA ([facility]) Body weight 2210 [oz_av] 2210 [oz_av] LEAH ([facility]) Diastolic blood pressure 94 mm[Hg] 94 mm[Hg] LEAH ([facility]) Body height 65 [in_i] 65 [in_i] LEAH ([facility]) Diastolic blood pressure 94 mm[Hg] 94 mm[Hg] LEAH ([facility]) Body height 65 [in_i] 65 [in_i] LEAH ([facility]) Body mass index (BMI) [Ratio] 23 kg/m2 23 kg/ m2 LEAH ([facility]) Systolic blood pressure 138 mm[Hg] 138 mm[Hg] A [facility] ([facility]) Body weight 2210 [oz_av] 2210 [oz_av] LEAH ([facility]) Body height 65 [in_i] 65 [in_i] LEAH ([facility]) Body mass index (BMI) [Ratio] 23.8 kg/m2 23.8 k g/m2 LEAH ([facility]) Systolic blood pressure 122 mm[Hg] 122 mm[Hg] A [facility] ([facility]) Body weight 2288 [oz_av] 2288 [oz_av] LEAH ([facility]) Diastolic blood pressure 82 mm[Hg] 82 mm[Hg] LEAH ([facility]) Diastolic blood pressure 82 mm[Hg] 82 mm[Hg] LEAH ([facility]) Body height 65 [in_i] 65 [in_i] LEAH ([facility]) Body mass index (BMI) [Ratio] 23.8 kg/m2 23.8 k g/m2 LEAH ([facility]) Systolic blood pressure 122 mm[Hg] 122 mm[Hg] A THENA ([facility]) Body weight 2288 [oz_av] 2288 [oz_av] LEAH ([facility]) Diastolic blood pressure 82 mm[Hg] 82 mm[Hg] LEAH ([facility]) Body height 65 [in_i] 65 [in_i] LEAH ([facility]) Body mass index (BMI) [Ratio] 23.8 kg/m2 23.8 k g/m2 LEAH ([facility]) Systolic blood pressure 122 mm[Hg] 122 mm[Hg] A THENA ([facility]) Body weight 2288 [oz_av] 2288 [oz_av] LEAH ([facility]) Body height 65 [in_i] 65 [in_i] LEAH ([facility]) Body mass index (BMI) [Ratio] 23.8 kg/m2 23.8 k g/m2 LEAH ([facility]) Body weight 2288 [oz_av] 2288 [oz_av] LEAH ([facility]) Body height 65 [in_i] 65 [in_i] LEAH ([facility]) Body mass index (BMI) [Ratio] 23.8 kg/m2 23.8 k g/m2 LEAH ([facility]) Body weight 2288 [oz_av] 2288 [oz_av] LEAH ([facility]) Body height 65 [in_i] 65 [in_i] LEAH ([facility]) Body mass index (BMI) [Ratio] 23.8 kg/m2 23.8 k g/m2 LEAH ([facility]) Body weight 2288 [oz_av] 2288 [oz_av] LEAH ([facility]) Body height 65 [in_i] 65 [in_i] LEAH ([facility]) Body mass index (BMI) [Ratio] 23.8 kg/m2 23.8 k g/m2 LEAH ([facility]) Body weight 2288 [oz_av] 2288 [oz_av] LEAH ([facility]) Body height 65 [in_i] 65 [in_i] LEAH ([facility]) Body mass index (BMI) [Ratio] 23.8 kg/m2 23.8 k g/m2 LEAH ([facility]) Body weight 2288 [oz_av] 2288 [oz_av] LEAH ([facility]) Diastolic blood pressure 74 mm[Hg] 74 mm[Hg] LEAH ([facility]) Body height 65 [in_i] 65 [in_i] LEAH ([facility]) Body mass index (BMI) [Ratio] 23.7 kg/m2 23.7 k g/m2 LEAH ([facility]) Systolic blood pressure 115 mm[Hg] 115 mm[Hg] A THENA ([facility]) Body weight 2281.6 [oz_av] 2281.6 [oz_av] ATHEN A ([facility]) Diastolic blood pressure 74 mm[Hg] 74 mm[Hg] LEAH ([facility]) Body mass index (BMI) [Ratio] 23.7 kg/m2 23.7 k g/m2 LEAH ([facility]) Body height 65 [in_i] 65 [in_i] LEAH ([facility]) Systolic blood pressure 115 mm[Hg] 115 mm[Hg] A [facility] ([facility]) Body weight 2281.6 [oz_av] 2281.6 [oz_av] ATHEN A ([facility]) Diastolic blood pressure 74 mm[Hg] 74 mm[Hg] LEAH ([facility]) Body height 65 [in_i] 65 [in_i] LEAH ([facility]) Body mass index (BMI) [Ratio] 23.7 kg/m2 23.7 k g/m2 LEAH ([facility]) Systolic blood pressure 115 mm[Hg] 115 mm[Hg] A [facility] ([facility]) Body weight 2281.6 [oz_av] 2281.6 [oz_av] ATHEN A ([facility]) Diastolic blood pressure 74 mm[Hg] 74 mm[Hg] LEAH ([facility]) Body height 65 [in_i] 65 [in_i] LEAH ([facility]) Body mass index (BMI) [Ratio] 23.7 kg/m2 23.7 k g/m2 LEAH ([facility]) Systolic blood pressure 115 mm[Hg] 115 mm[Hg] A THENA ([facility]) Body weight 2281.6 [oz_av] 2281.6 [oz_av] ATHEN A ([facility]) Body height 65 [in_i] 65 [in_i] LEAH ([facility]) Body mass index (BMI) [Ratio] 23.7 kg/m2 23.7 k g/m2 LEAH ([facility]) Systolic blood pressure 115 mm[Hg] 115 mm[Hg] A [facility] ([facility]) Body weight 2281.6 [oz_av] 2281.6 [oz_av] ATHEN A ([facility]) Diastolic blood pressure 74 mm[Hg] 74 mm[Hg] LEAH ([facility]) Diastolic blood pressure 74 mm[Hg] 74 mm[Hg] LEAH ([facility]) Body height 65 [in_i] 65 [in_i] LEAH ([facility]) Body mass index (BMI) [Ratio] 23.7 kg/m2 23.7 k g/m2 LEAH ([facility]) Systolic blood pressure 115 mm[Hg] 115 mm[Hg] A THENA ([facility]) Body weight 2281.6 [oz_av] 2281.6 [oz_av] ATHEN A ([facility]) Patient Treatment Plan of Care Planned Activity Planned Date Details Description Data Source (s) Prevail Underwear USE THREE TIMES A DAY FOR INCONTINEN CE 07/30/2021 12:00:00 AM EDT LEAH ([facility]) Prevail Underwear USE THREE TIMES A DAY FOR INCONTINEN CE 07/30/2021 12:00:00 AM EDT LEAH ([facility]) Prevail Underwear USE THREE TIMES A DAY FOR INCONTINEN CE 07/30/2021 12:00:00 AM EDT LEAH ([facility]) ziprasidone 60 MG Oral Capsule LEAH ([facility]) Sulfamethoxazole 800 MG / Trimethoprim 160 MG Oral Tablet LEAH ([facility]) Prednisone 20 MG Oral Tablet LEAH ([facility]) Mirtazapine 15 MG Oral Tablet LEAH ([facility]) Metformin hydrochloride 500 MG Oral Tablet LEAH ([facility]) Ciprofloxacin 250 MG Oral Tablet LEAH ([facility]) Azithromycin 250 MG Oral Tablet LEAH ([facility]) ziprasidone 60 MG Oral Capsule LEAH ([facility]) Sulfamethoxazole 800 MG / Trimethoprim 160 MG Oral Tablet LEAH ([facility]) Prednisone 20 MG Oral Tablet LEAH ([facility]) Mirtazapine 15 MG Oral Tablet LEAH ([facility]) Metformin hydrochloride 500 MG Oral Tablet LEAH ([facility]) Ciprofloxacin 250 MG Oral Tablet LEAH ([facility]) Azithromycin 250 MG Oral Tablet LEAH ([facility]) ziprasidone 60 MG Oral Capsule LEAH ([facility]) Prednisone 20 MG Oral Tablet LEAH ([facility]) Mirtazapine 15 MG Oral Tablet LEAH ([facility]) Metformin hydrochloride 500 MG Oral Tablet LEAH ([facility]) Ciprofloxacin 250 MG Oral Tablet LEAH ([facility]) Azithromycin 250 MG Oral Tablet LEAH ([facility]) Metformin hydrochloride 500 MG Oral Tablet LEAH ([facility]) Azithromycin 250 MG Oral Tablet LEAH ([facility]) Metformin hydrochloride 500 MG Oral Tablet LEAH ([facility]) Azithromycin 250 MG Oral Tablet LEAH ([facility]) Metformin hydrochloride 500 MG Oral Tablet LEAH ([facility]) Azithromycin 250 MG Oral Tablet LEAH ([facility])
== END 2021-10-05 04:50 | disposition left against medical advice (07) ==
LOC: M ED 19:07
DX: Z53.29 Procedure and treatment not carried out because of patient's decision for other reasons (principal)